=== PATIENT | male | born 1955 | race Two or more races ===

== ENCOUNTER 2022-07-01 13:44 | Emergency (ER) | payer MEDICAID ==
[~2022-07-01] VITALS: Ht 177.8 cm; Wt 94.9 kg
[2022-07-01 14:00] VITALS: BP 134/79
[2022-07-01] MEDS ORDERED: ONDANSETRON ODT 4 MG TAB PO ONE (15:45)
[2022-07-01] MEDS ORDERED: ACETAMINOPHEN 500 MG TAB PO ONE (15:45)
[2022-07-01] MEDS ORDERED: LORA-664 PO (17:34)
[2022-07-01] MEDS ORDERED: BENZ100C19 PO (17:34)
[2022-07-01] MEDS ORDERED: ACET-1158 PO (17:34)
== END 2022-07-01 17:42 | disposition home or self-care (01) ==
LOC: ER 13:44
DX: U07.1 COVID-19 (principal)
CPT/HCPCS: 36415; 71046; 87426; 87804; 99284; Q0162

== ENCOUNTER 2023-09-02 11:57 | Inpatient (IN) | payer MEDICAID ==
[~2023-09-02] VITALS: Ht 177.8 cm; Wt 91.6 kg
[~2023-09-02 11:57] MED LIST: ACET500T58 PO; BENZ100C19 PO; LORA-1130 PO
[2023-09-02 13:27] LABS: Basophils # (auto) 0 10 ^3/uL (0-0.2); Basophils % (auto) 0.9 % (0.0-2.0); Eosinophils # (auto) 0.1 10 ^3/uL (0-0.8); Eosinophils % (auto) 1.5 % (0.0-7.0); Hematocrit 31.8 % (41.0-53.0); Hemoglobin 10.5 g/dL (13.5-17.5); Lymphocytes % (auto) 20.6 % (10.0-50.0); Mean Corpuscular Hemoglobin 31.5 pg (28.0-32.0); Mean Corpuscular Hgb Conc. 33.1 g/dL (32.0-36.0); Mean Corpuscular Volume 95.3 fL (80.0-100.0); Monocytes # (auto) 0.5 10 ^3/uL (0-1.3); Monocytes % (auto) 10.3 % (0.0-12.0); Neutrophils # (auto) 3.1 10 ^3/uL (1.6-8.6); Neutrophils % (auto) 66.7 % (37.0-80.0); Red Blood Cells 3.33 10^6/uL (4.5-5.90); Red Cell Distribution Width 14.1 % (11.8-14.3); White Blood Cell 4.7 10^3/uL (4.4-10.8)
[2023-09-02 13:29] LABS: Chloride 96 mmol/L (98-107); Potassium 5.3 mmol/L (3.5-5.1); Sodium 137 mmol/L (136-145)
[2023-09-02 13:30] LABS: Anion Gap 6 (5-15)
[2023-09-02 13:31] LABS: Calcium 10.8 mg/dL (8.7-10.4)
[2023-09-02 13:35] LABS: Blood Urea Nitrogen 29 mg/dL (9-23); Glucose 101 mg/dL (74-106)
[2023-09-02 14:05] LABS: BUN/Creatinine Ratio 3.1 (10.0-20.0); Carbon Dioxide 35 mmol/L (20-30)
[2023-09-02] MEDS: ALBUTEROL SULF 2.5 MG/0.5ML(0.5%) NEB SOLN NEB ONE (16:34)
[2023-09-02] MEDS ORDERED: SEVE800T20 PO (16:41)
[2023-09-02] MEDS ORDERED: FURO80TA3 PO (16:41)
[2023-09-02] MEDS ORDERED: GABA-1250 PO (16:41)
[2023-09-02] MEDS ORDERED: FERR1TAB17 PO (16:41)
[2023-09-02] MEDS ORDERED: CINA90TA10 PO (16:41)
[2023-09-02] MEDS ORDERED: NIFE1TAB30 PO (16:41)
[2023-09-02] MEDS ORDERED: ALLO100T PO (16:41)
[2023-09-02] MEDS ORDERED: CINA60TA10 PO (16:41)
[2023-09-02] MEDS ORDERED: CLOP75TA70 PO (16:41)
[2023-09-02] MEDS ORDERED: CHOL50007 PO (16:41)
[2023-09-02] MEDS ORDERED: ROPI0.5T4 PO (16:41)
[2023-09-02] MEDS ORDERED: AMLO1TAB22 PO (16:41)
[2023-09-02] MEDS ORDERED: ATOR40TA52 PO (16:41)
[2023-09-02] MEDS ORDERED: B-CO-6 PO (16:41)
[2023-09-02] MEDS ORDERED: DOCUSATE SOD 100 MG CAP PO PRN (16:45)
[2023-09-02] MEDS ORDERED: ONDANSETRON HCL 4 MG/2 ML VIAL IV PRN (16:45)
[2023-09-02] MEDS: cloNIDine HCL 0.1 MG TAB PO ONE (16:45)
[2023-09-02] MEDS ORDERED: MORPHINE SULFATE INJ 2 MG/ml SYRG IV PRN (16:45)
[2023-09-02 17:48] VITALS: PULSE 100; RESP 18; O2SAT 100
[2023-09-02] MEDS: DEXTROSE (50%) 50ML SYRG IV ONE (17:59)
[2023-09-02] MEDS: SODIUM ZIRCONIUM CYCL 10 GM PAK PO ONE (17:59)
[2023-09-02] MEDS: CALCIUM GLUC 1,000mg/50ml-NS 50 ML IV ONE (17:59)
[2023-09-02] MEDS: SEVELAMER 800 MG TAB PO SCH (18:00)
[2023-09-02] MEDS: traMADol HCL 50 MG TAB PO ONE (18:01)
[2023-09-02] MEDS: InsuLIN REG 1unit/0.01ml Soln (100units/ml) IV ONE (18:02)
[2023-09-02] MEDS: FUROSEMIDE 20 MG/2 ML VIAL IV ONE (18:02)
[2023-09-02] MEDS: SODIUM BICARB 8.4% 50Meq/50ml SYR INJ IV ONE (18:03)
[2023-09-02] MEDS: ATORVASTATIN 20 MG TAB PO SCH (21:06)
[2023-09-02] MEDS: SODIUM ZIRCONIUM CYCL 10 GM PAK PO SCH (21:06)
[2023-09-03] VITALS (9 sets, daily range): BP systolic 134–163; BP diastolic 76–102; PULSE 64–85; RESP 16–20; TEMP 97.5–98.4; O2SAT 95–100
[2023-09-03] MEDS: hydrALAZINE HCL 20 MG/ML VL IV PRN (01:19)
[2023-09-03] MEDS: traMADol HCL 50 MG TAB PO PRN (08:41)
[2023-09-03] MEDS: B-COMPLEX W/ C & FOLIC ACID(NEPHROVITE TAB) PO SCH (09:57)
[2023-09-03] MEDS: CLOPIDOGREL BISULFATE 75 MG TAB PO SCH (09:57)
[2023-09-03] MEDS: GABAPENTIN 300 MG CAP PO SCH (09:57)
[2023-09-03] MEDS: CHOLECALCIFEROL (VITD3) 1,000UNIT=25mCg TAB PO SCH (09:59)
[2023-09-03] MEDS: FUROSEMIDE 40 MG TAB PO SCH (10:00)
[2023-09-03] MEDS: ROPINIROLE HYDROCHLORIDE 0.5 MG PO SCH (10:00)
[2023-09-03] MEDS ORDERED: NIFEdipine ER 30 MG TAB PO SCH (10:00)
[2023-09-03] MEDS: CINACALCET HYDROCHLORIDE 30 MG TAB PO SCH (10:00)
[2023-09-03] MEDS ORDERED: amLODIPine BESYLATE 5 MG TAB PO SCH (10:00)
[2023-09-03 10:28] LABS: Basophils # (auto) 0 10 ^3/uL (0-0.2); Basophils % (auto) 0.6 % (0.0-2.0); Eosinophils # (auto) 0.1 10 ^3/uL (0-0.8); Eosinophils % (auto) 1.5 % (0.0-7.0); Hemoglobin 10.7 g/dL (13.5-17.5); Lymphocytes # (auto) 1.2 10 ^3/uL (0.4-5.4); Lymphocytes % (auto) 19.5 % (10.0-50.0); Mean Corpuscular Hgb Conc. 33.5 g/dL (32.0-36.0); Mean Corpuscular Volume 95.4 fL (80.0-100.0); Monocytes # (auto) 0.7 10 ^3/uL (0-1.3); Monocytes % (auto) 10.9 % (0.0-12.0); Neutrophils # (auto) 4.3 10 ^3/uL (1.6-8.6); Neutrophils % (auto) 67.5 % (37.0-80.0); Red Blood Cells 3.35 10^6/uL (4.5-5.90); Red Cell Distribution Width 14.4 % (11.8-14.3); White Blood Cell 6.4 10^3/uL (4.4-10.8)
[2023-09-03 10:50] LABS: Alkaline Phosphatase 82 U/L (46-116); Anion Gap 8 (5-15); Aspartate Aminotransferase 8 U/L (13-40); BUN/Creatinine Ratio 3.2 (10.0-20.0); Blood Urea Nitrogen 33 mg/dL (9-23); Carbon Dioxide 33 mmol/L (20-30); Chloride 95 mmol/L (98-107); Glucose 144 mg/dL (74-106); Potassium 4.9 mmol/L (3.5-5.1); Sodium 136 mmol/L (136-145)
[2023-09-03 10:51] LABS: Bilirubin, Total 0.7 mg/dL (0.2-1.0)
[2023-09-03 11:25] LABS: INR 1.08 (0.9-1.15); Prothrombin Time 11.3 sec (9.3-11.8)
[2023-09-03 11:33] LABS: CRP High Sensitivity 0.16 mg/dL (<1.0)
[2023-09-03 11:35] LABS: % Iron Saturation 38.4 % (20-55)
[2023-09-03 11:53] LABS: Magnesium 2.3 mg/dL (1.6-2.6)
[2023-09-03 11:56] LABS: Alanine Aminotransferase < 9 U/L (7-40)
[2023-09-03 14:14] LABS: COVID19 ANTIGEN SOFIA FIA NEGATIVE (NEGATIVE); Rapid Influenza A Negative (Negative); Rapid Influenza B Negative (Negative)
[2023-09-03] MEDS ORDERED: LOSA50TA46 PO (16:12)
[2023-09-03] MEDS: ASPirin 81 mg TAB PO ONE (18:13)
[2023-09-03] MEDS: ATORVASTATIN 20 MG TAB PO SCH (22:05)
[2023-09-03] MEDS: cloNIDine HCL 0.1 MG TAB PO ONE (22:37)
[2023-09-03] MEDS: ASPirin 81 mg TAB PO SCH (23:05)
[2023-09-04] VITALS (9 sets, daily range): BP systolic 91–152; BP diastolic 54–85; PULSE 67–79; RESP 16–22; TEMP 97.1–98.1; O2SAT 96–100
[2023-09-04 07:05] LABS: Ferritin 1050.7 ng/mL (22-322); Folate (Folic Acid) 7.4 ng/mL (>5.38)
[2023-09-04 07:39] LABS: Basophils # (auto) 0.1 10 ^3/uL (0-0.2); Basophils % (auto) 1.2 % (0.0-2.0); Eosinophils # (auto) 0.1 10 ^3/uL (0-0.8); Eosinophils % (auto) 2.9 % (0.0-7.0); Hemoglobin 10.5 g/dL (13.5-17.5); Lymphocytes # (auto) 1.2 10 ^3/uL (0.4-5.4); Lymphocytes % (auto) 24.6 % (10.0-50.0); Mean Corpuscular Hemoglobin 31.1 pg (28.0-32.0); Mean Corpuscular Hgb Conc. 32.9 g/dL (32.0-36.0); Mean Corpuscular Volume 94.5 fL (80.0-100.0); Monocytes # (auto) 0.5 10 ^3/uL (0-1.3); Monocytes % (auto) 9.5 % (0.0-12.0); Neutrophils # (auto) 3.1 10 ^3/uL (1.6-8.6); Neutrophils % (auto) 61.8 % (37.0-80.0); Nucleated Red Blood Cells % 0.1 %; Red Blood Cells 3.39 10^6/uL (4.5-5.90); Red Cell Distribution Width 14.4 % (11.8-14.3)
[2023-09-04 07:45] LABS: Albumin 4.5 g/dL (3.2-4.8); Alkaline Phosphatase 88 U/L (46-116); Anion Gap 7 (5-15); Aspartate Aminotransferase < 8 U/L (13-40); BUN/Creatinine Ratio 2.4 (10.0-20.0); Blood Urea Nitrogen 18 mg/dL (9-23); Calcium 10.7 mg/dL (8.7-10.4); Carbon Dioxide 33 mmol/L (20-30); Chloride 96 mmol/L (98-107); Glucose 95 mg/dL (74-106); Magnesium 2.2 mg/dL (1.6-2.6); Potassium 4.5 mmol/L (3.5-5.1); Sodium 136 mmol/L (136-145)
[2023-09-04 07:46] LABS: Bilirubin, Total 0.8 mg/dL (0.2-1.0); Total Protein 6.9 g/dL (5.7-8.2)
[2023-09-04 07:51] LABS: Alanine Aminotransferase < 9 U/L (7-40)
[2023-09-04] MEDS: ACETAMINOPHEN 325 MG TAB PO PRN (09:52)
[2023-09-04] MEDS: HEPARIN SODIUM (PORCINE) 5000 UNITS/ML 1ML VIAL SC SCH (10:00)
[2023-09-04] MEDS ORDERED: ASPirin 81 mg TAB PO SCH (10:00)
[2023-09-04] MEDS: NIFEdipine ER 30 MG TAB PO SCH (10:39)
[2023-09-04] MEDS: CARVEDILOL 3.125 MG TAB PO ONE (19:04)
[2023-09-04] MEDS: ATORVASTATIN 20 MG TAB PO SCH (22:09)
[2023-09-04] MEDS: CARVEDILOL 3.125 MG TAB PO SCH (22:10)
[2023-09-05] VITALS (8 sets, daily range): BP systolic 122–158; BP diastolic 65–86; PULSE 65–76; RESP 16–20; TEMP 98–98.6; O2SAT 95–100
[2023-09-05 06:20] LABS: Basophils # (auto) 0 10 ^3/uL (0-0.2); Basophils % (auto) 0.8 % (0.0-2.0); Eosinophils # (auto) 0.1 10 ^3/uL (0-0.8); Eosinophils % (auto) 2.6 % (0.0-7.0); Lymphocytes # (auto) 1.2 10 ^3/uL (0.4-5.4); Lymphocytes % (auto) 26.7 % (10.0-50.0); Mean Corpuscular Hemoglobin 31.3 pg (28.0-32.0); Mean Corpuscular Hgb Conc. 33.3 g/dL (32.0-36.0); Mean Corpuscular Volume 94.3 fL (80.0-100.0); Monocytes # (auto) 0.5 10 ^3/uL (0-1.3); Monocytes % (auto) 10.5 % (0.0-12.0); Neutrophils # (auto) 2.7 10 ^3/uL (1.6-8.6); Neutrophils % (auto) 59.4 % (37.0-80.0); Red Blood Cells 2.86 10^6/uL (4.5-5.90); Red Cell Distribution Width 14.2 % (11.8-14.3); White Blood Cell 4.5 10^3/uL (4.4-10.8)
[2023-09-05 06:36] LABS: Alkaline Phosphatase 73 U/L (46-116); Anion Gap 7 (5-15); BUN/Creatinine Ratio 3.4 (10.0-20.0); Calcium 9.6 mg/dL (8.7-10.4); Carbon Dioxide 32 mmol/L (20-30); Chloride 95 mmol/L (98-107); Potassium 4.7 mmol/L (3.5-5.1); Sodium 134 mmol/L (136-145)
[2023-09-05 06:37] LABS: Albumin 3.8 g/dL (3.2-4.8); Aspartate Aminotransferase < 8 U/L (13-40); Bilirubin, Total 0.7 mg/dL (0.2-1.0); Total Protein 5.8 g/dL (5.7-8.2)
[2023-09-05 06:40] LABS: Alanine Aminotransferase < 9 U/L (7-40); Blood Urea Nitrogen 31 mg/dL (9-23)
[2023-09-05 07:02] LABS: Glucose 87 mg/dL (74-106)
[2023-09-06] VITALS (8 sets, daily range): BP systolic 142–168; BP diastolic 71–96; PULSE 63–84; RESP 18–21; TEMP 97.8–98.6; O2SAT 96–100
[2023-09-06 07:07] LABS: Basophils # (auto) 0 10 ^3/uL (0-0.2); Eosinophils # (auto) 0.1 10 ^3/uL (0-0.8); Eosinophils % (auto) 1.9 % (0.0-7.0); Hematocrit 26.5 % (41.0-53.0); Lymphocytes # (auto) 1.2 10 ^3/uL (0.4-5.4); Lymphocytes % (auto) 26.8 % (10.0-50.0); Mean Corpuscular Hemoglobin 32.4 pg (28.0-32.0); Mean Corpuscular Hgb Conc. 33.8 g/dL (32.0-36.0); Mean Corpuscular Volume 95.7 fL (80.0-100.0); Monocytes # (auto) 0.5 10 ^3/uL (0-1.3); Monocytes % (auto) 10.1 % (0.0-12.0); Neutrophils # (auto) 2.7 10 ^3/uL (1.6-8.6); Neutrophils % (auto) 60.2 % (37.0-80.0); Nucleated Red Blood Cells % 0.3 %; Red Blood Cells 2.77 10^6/uL (4.5-5.90); Red Cell Distribution Width 14.4 % (11.8-14.3); White Blood Cell 4.5 10^3/uL (4.4-10.8)
[2023-09-06 07:34] LABS: Alkaline Phosphatase 76 U/L (46-116); Anion Gap 7 (5-15); BUN/Creatinine Ratio 3.7 (10.0-20.0); Calcium 9.6 mg/dL (8.5-10.1); Carbon Dioxide 32 mmol/L (20-30); Chloride 94 mmol/L (98-107); Glucose 80 mg/dL (74-106); Potassium 5.2 mmol/L (3.5-5.1); Sodium 133 mmol/L (136-145)
[2023-09-06 07:36] LABS: Aspartate Aminotransferase 11 U/L (13-40); Bilirubin, Total 0.7 mg/dL (0.2-1.0); Total Protein 5.7 g/dL (5.7-8.2)
[2023-09-06 07:40] LABS: Blood Urea Nitrogen 41 mg/dL (9-23)
[2023-09-06 07:41] LABS: Alanine Aminotransferase < 9 U/L (7-40)
[2023-09-06] MEDS: SODIUM CHL 0.9% 1000 ML BAG XX ONE ×2 (10:43→10:44)
[2023-09-07] VITALS (17 sets, daily range): BP systolic 126–176; BP diastolic 65–92; PULSE 63–86; RESP 16–20; TEMP 97.7–98.3; O2SAT 90–100
[2023-09-07 05:48] LABS: Chloride 99 mmol/L (98-107); Potassium 4.8 mmol/L (3.5-5.1); Sodium 138 mmol/L (136-145)
[2023-09-07 05:49] LABS: Anion Gap 7 (5-15); Calcium 9.6 mg/dL (8.5-10.1); Carbon Dioxide 32 mmol/L (20-30)
[2023-09-07 05:54] LABS: BUN/Creatinine Ratio 3.5 (10.0-20.0); Glucose 89 mg/dL (74-106)
[2023-09-07 06:23] LABS: Blood Urea Nitrogen 28 mg/dL (9-23)
[2023-09-07 07:09] LABS: Basophils # (auto) 0 10 ^3/uL (0-0.2); Basophils % (auto) 0.7 % (0.0-2.0); Eosinophils # (auto) 0.1 10 ^3/uL (0-0.8); Eosinophils % (auto) 1.7 % (0.0-7.0); Hematocrit 28.3 % (41.0-53.0); Hemoglobin 9.3 g/dL (13.5-17.5); Mean Corpuscular Hemoglobin 31.2 pg (28.0-32.0); Mean Corpuscular Volume 94.5 fL (80.0-100.0); Monocytes # (auto) 0.5 10 ^3/uL (0-1.3); Monocytes % (auto) 9.6 % (0.0-12.0); Neutrophils # (auto) 3.3 10 ^3/uL (1.6-8.6); Red Blood Cells 2.99 10^6/uL (4.5-5.90); Red Cell Distribution Width 14.2 % (11.8-14.3); White Blood Cell 4.8 10^3/uL (4.4-10.8)
[2023-09-07] MEDS: NIFEdipine ER 30 MG TAB PO SCH (09:41)
[2023-09-07] MEDS: FUROSEMIDE 40 MG/4 ML VIAL IV SCH ×2 (13:19→22:25)
[2023-09-07] MEDS: LIDOCAINE VISCOUS 2% 15ML UD PO ONE (16:44)
[2023-09-07] MEDS: fentaNYL CITRATE 100 MCG/2 ML VL IV ONE (16:45)
[2023-09-07] MEDS: MIDAZOLAM HCL 2MG/2ML 2ml VIAL (1mg/ml) IV ONE (16:45)
[2023-09-07] MEDS: CYANOCOBALAMIN (B-12) 1000 MCG/1 ML VIAL IM ONE (19:15)
[2023-09-07] MEDS: guaiFENesin-DM 100/10mg/5ml SYR PO PRN (19:15)
[2023-09-07] MEDS: ROPINIROLE 0.5 MG PO SCH (22:29)
[2023-09-08] VITALS (9 sets, daily range): BP systolic 102–170; BP diastolic 54–88; PULSE 65–92; RESP 14–19; TEMP 97.3–98.6; O2SAT 94–97
[2023-09-08 06:10] LABS: Basophils # (auto) 0 10 ^3/uL (0-0.2); Eosinophils # (auto) 0.1 10 ^3/uL (0-0.8); Eosinophils % (auto) 2.4 % (0.0-7.0); Hematocrit 25.8 % (41.0-53.0); Hemoglobin 8.7 g/dL (13.5-17.5); Lymphocytes # (auto) 0.8 10 ^3/uL (0.4-5.4); Lymphocytes % (auto) 22.8 % (10.0-50.0); Mean Corpuscular Hgb Conc. 33.8 g/dL (32.0-36.0); Mean Corpuscular Volume 94.6 fL (80.0-100.0); Monocytes # (auto) 0.4 10 ^3/uL (0-1.3); Monocytes % (auto) 12.1 % (0.0-12.0); Neutrophils # (auto) 2.1 10 ^3/uL (1.6-8.6); Neutrophils % (auto) 61.7 % (37.0-80.0); Nucleated Red Blood Cells % 0.1 %; Red Blood Cells 2.73 10^6/uL (4.5-5.90); White Blood Cell 3.5 10^3/uL (4.4-10.8)
[2023-09-08 06:13] LABS: Albumin 3.9 g/dL (3.2-4.8); Alkaline Phosphatase 75 U/L (46-116); Anion Gap 7 (5-15); Aspartate Aminotransferase 9 U/L (13-40); BUN/Creatinine Ratio 3.7 (10.0-20.0); Blood Urea Nitrogen 35 mg/dL (9-23); Calcium 9.5 mg/dL (8.7-10.4); Carbon Dioxide 31 mmol/L (20-30); Chloride 99 mmol/L (98-107); Glucose 92 mg/dL (74-106); Magnesium 2.3 mg/dL (1.6-2.6); Potassium 4.8 mmol/L (3.5-5.1); Sodium 137 mmol/L (136-145)
[2023-09-08 06:14] LABS: Bilirubin, Total 0.9 mg/dL (0.2-1.0)
[2023-09-08 06:32] LABS: Alanine Aminotransferase < 9 U/L (7-40)
[2023-09-08] MEDS: SODIUM CHL 0.9% 1000 ML BAG XX ONE (07:00)
[2023-09-08] MEDS ORDERED: NIFE1TAB31 PO (11:16)
[2023-09-08] MEDS ORDERED: ASPI-325 PO (11:16)
[2023-09-08] MEDS ORDERED: CYAN500T3 PO (11:16)
[2023-09-08] MEDS ORDERED: CAR3125T PO (11:16)
[2023-09-08] MEDS: CYANOCOBALAMIN 500 MCG TAB PO SCH (11:29)
[2023-09-08] MEDS: EPOETIN ALFA-EPBX 4,000 UNIT/ML VIAL SC ONE (21:10)
[2023-09-08] MEDS: cloNIDine HCL 0.1 MG TAB PO ONE (22:46)
== END 2023-09-08 23:15 | disposition home or self-care (01) | DRG 45 ==
LOC: ER 11:57 → OVERFLOW 16:38 → EAST 09-03 00:39 → TELE-EAST 09-03 19:21
PROVIDERS: ADMIT Internal Medicine; ATTEND Internal Medicine
PROC: 5A1D70Z Performance of Urinary Filtration, Intermittent, Less than 6 Hours Per Day (ICD-10-PCS; principal; 2023-09-03)
PROC: 5A1D70Z Performance of Urinary Filtration, Intermittent, Less than 6 Hours Per Day (ICD-10-PCS; 2023-09-06)
PROC: B24BZZ4 Ultrasonography of Heart with Aorta, Transesophageal (ICD-10-PCS; 2023-09-07)
PROC: 5A1D70Z Performance of Urinary Filtration, Intermittent, Less than 6 Hours Per Day (ICD-10-PCS; 2023-09-08)
DX: I63.81 Other cerebral infarction due to occlusion or stenosis of small artery (principal); I12.0 Hypertensive chronic kidney disease with stage 5 chronic kidney disease or end stage renal disease; D63.1 Anemia in chronic kidney disease; E83.39 Other disorders of phosphorus metabolism; N18.6 End stage renal disease; I50.42 Chronic combined systolic (congestive) and diastolic (congestive) heart failure; N25.81 Secondary hyperparathyroidism of renal origin; E87.5 Hyperkalemia; M10.9 Gout, unspecified; I16.0 Hypertensive urgency; E78.5 Hyperlipidemia, unspecified; Z20.822 Contact with and (suspected) exposure to COVID-19; D17.0 Benign lipomatous neoplasm of skin and subcutaneous tissue of head, face and neck; I34.0 Nonrheumatic mitral (valve) insufficiency; E83.52 Hypercalcemia; E66.9 Obesity, unspecified; R06.02 Shortness of breath; Z68.29 Body mass index [BMI] 29.0-29.9, adult; Z86.718 Personal history of other venous thrombosis and embolism; Z79.02 Long term (current) use of antithrombotics/antiplatelets; Z79.899 Other long term (current) drug therapy; Z99.2 Dependence on renal dialysis
CPT/HCPCS: 36415; 70450; 70551; 71045; 80048; 80053; 80061; 82306; 82533; 82607; 82728; 82746; 82962; 83036; 83540; 83550; 83735; 83880; 84132; 84443; 84484; 85025; 85610; 86141; 87081; 87340; 87426; 87804; 90935; 93005; 93306; 93312; 93886; 93970; 94644; 97116; 97163; 97530; 99152; 99291; G0378; J1815; J2250

== ENCOUNTER 2024-01-12 17:20 | Emergency (ER) | payer MEDICAID ==
[~2024-01-12] VITALS: Ht 177.8 cm; Wt 85.5 kg
[~2024-01-12 17:20] MED LIST changes: +ALLO100T PO; +ASPI-325 PO; +ATOR40TA52 PO; +B-CO-6 PO; -BENZ100C19 PO; +CARV-214 PO; +CHOL50007 PO; +CINA90TA10 PO; +CLOP75TA70 PO; +CYAN500T3 PO; +FERR1TAB17 PO; +FURO80TA3 PO; +GABA-1250 PO; -LORA-1130 PO; +LOSA-534 PO; +NIFE1TAB31 PO; +ROPI0.5T26 PO; +SEVE800T20 PO
[2024-01-12] MEDS: ACETAMINOPHEN 325 MG TAB PO ONE (17:51)
[2024-01-12 19:43] LABS: Basophils # (auto) 0 10 ^3/uL (0-0.2); Basophils % (auto) 0.5 % (0.0-2.0); Eosinophils # (auto) 0 10 ^3/uL (0-0.8); Eosinophils % (auto) 0.3 % (0.0-7.0); Hemoglobin 12.7 g/dL (13.5-17.5); Lymphocytes # (auto) 0.4 10 ^3/uL (0.4-5.4); Lymphocytes % (auto) 9.9 % (10.0-50.0); Mean Corpuscular Hemoglobin 33.5 pg (28.0-32.0); Mean Corpuscular Hgb Conc. 34.3 g/dL (32.0-36.0); Mean Corpuscular Volume 97.6 fL (80.0-100.0); Monocytes # (auto) 0.7 10 ^3/uL (0-1.3); Monocytes % (auto) 15.6 % (0.0-12.0); Neutrophils # (auto) 3.2 10 ^3/uL (1.6-8.6); Neutrophils % (auto) 73.7 % (37.0-80.0); Red Blood Cells 3.79 10^6/uL (4.5-5.90); White Blood Cell 4.3 10^3/uL (4.4-10.8)
[2024-01-12 19:57] LABS: INR 1.05 (0.9-1.15); Partial Thromboplastin Time 35.6 SEC (24.5-34.5); Prothrombin Time 11.1 sec (9.3-11.8)
[2024-01-12 20:05] LABS: Albumin 4.4 g/dL (3.2-4.8); Alkaline Phosphatase 56 U/L (46-116); Anion Gap 7 (5-15); Aspartate Aminotransferase < 8 U/L (13-40); Blood Urea Nitrogen 33 mg/dL (9-23); Calcium 9.7 mg/dL (8.7-10.4); Carbon Dioxide 32 mmol/L (20-30); Chloride 93 mmol/L (98-107); Glucose 96 mg/dL (74-106); Potassium 4.8 mmol/L (3.5-5.1); Sodium 132 mmol/L (136-145)
[2024-01-12 20:06] LABS: Bilirubin, Total 0.8 mg/dL (0.2-1.0)
[2024-01-12 20:09] LABS: Alanine Aminotransferase < 9 U/L (7-40)
[2024-01-12] MEDS ORDERED: LEVO500T91 PO (23:22)
[2024-01-12 23:41] LABS: COVID19 ANTIGEN SOFIA FIA NEGATIVE (NEGATIVE); Rapid Influenza A Negative (Negative); Rapid Influenza B Negative (Negative)
[2024-01-13 00:03] VITALS: BP 106/65; PULSE 77; RESP 18; TEMP 98.2; O2SAT 97
== END 2024-01-13 00:05 | disposition home or self-care (01) ==
LOC: ER 17:20
DX: J18.9 Pneumonia, unspecified organism (principal); R53.1 Weakness; I12.0 Hypertensive chronic kidney disease with stage 5 chronic kidney disease or end stage renal disease; N18.6 End stage renal disease; Z88.8 Allergy status to other drugs, medicaments and biological substances; Z79.899 Other long term (current) drug therapy; Z20.822 Contact with and (suspected) exposure to COVID-19
CPT/HCPCS: 36415; 71045; 80053; 83880; 84484; 85025; 85610; 85730; 87426; 87804; 93005

== ENCOUNTER 2025-06-05 22:19 | Inpatient (IN) | payer MEDICAID ==
[~2025-06-05] VITALS: Ht 162.6 cm; Wt 77.3 kg
[~2025-06-05 22:19] MED LIST changes: +ASPI-543 PO; +B-CO-5 OR; +CARV12.544 PO; +CEFD300C2 PO; +CHOL20007 OR; +CIPR500T4 PO; +CLIN1CAP70 PO; +DOXY100C79 PO; +HYDR-4902 PO; +HYDR25TA88 PO; +ISOS1TAB28 PO; +LEVO500T91 PO; +ROPI2TAB27 PO; +SEVE800T10 PO
--- NOTE | 2025-06-05 22:30 | ECG ---
[facility] Test Date: 2025-06-05 Test Time: 22:21:21 Pat Name: YULIYA CARDENAS Department: ED Room: [address] [place] [address] Gender: M Physical Therapy Manager: VERONICA : 1955 Requested By: EMERGENCY EMERGENCY Order Number: [id number] Reading MD: Waqar Taveras Measurements Intervals [place] Rate: 88 P: 79 SD: 119 QRS: 53 QRSD: 112 T: 241 QT: 399 QTc: 483 Interpretive Statements Sinus rhythm Borderline short SD interval Borderline intraventricular conduction delay Abnormal R-wave progression, late transition Nonspecific T abnormalities, lateral leads Borderline prolonged QT interval Electronically Signed On 06-08-2025 17:18:33 PST by Waqar Taveras Please click the below link to view image of tracing.
--- NOTE | 2025-06-05 23:12 | ED.PDOC ---
History of Present Illness HPI Comments 69-year-old male who came to ER via EMS for altered level of consciousness. Patient discharged here last May 25, diagnosed with 1. Left knee wound with some pus drainage, wound cultures growing MSSA, 2. Known CAD status post CABG recently 3. Cardiomyopathy with the EF of 25% 4. Acute on chronic congestive heart failure exacerbation with systolic dysfunction 5. End-stage renal disease on hemodialysis 6. Hypertension Patient complaining of chest pains this morning. And he woke up this evening with altered level of consciousness, grunting, clenching his chest, unresponsive to verbal stimuli, saturating 87% on room air, blood sugar of 99, systolic blood pressure of 220. Unsure if patient went to his dialysis session on Thursday. No family members at bedside provide more information Unable to obtain ROS due to altered mental status PHYSICAL EXAM: General: Lethargic, not responding to commands No acute distress. Skin: Skin in warm, dry and intact. Appropriate color for ethnicity. HEENT: The head is normocephalic and atraumatic. Conjunctivae are clear without exudates or hemorrhage. Sclera is non-icteric. Eyelids are normal in appearance without swelling or lesions. Oral mucosa is pink and moist Neck: The neck is supple with normal range of motion. No JVD. Cardiac: Heart rate and rhythm are normal. No murmurs, gallops, or rubs are auscultated. Respiratory: No signs of respiratory distress. Lung sounds are clear in all lobes bilaterally without rales, rhonchi, or wheezes. Abdominal: Abdomen is soft, non-tender without distention, guarding or rigidity. Bowel sounds are present and normoactive in all four quadrants. Extremities: Lower extremities without edema. Neurological: Lethargic, intermittently alert. Noted to have large flailing movements of all 4 extremities. No facial extremity. Patient not making any comprehensible speech. He is making moaning sounds. No facial Asymmetry noted. Unable to follow commands. Chief Complaint: ALOC Time Seen by MD: 23:17 Primary Care Provider: ? Reviewed Notes: [employer] Apprentice Notes Allergies: Coded Allergies: Spironolactone (Verified Allergy, Unknown, 08/12/24) Home Meds Active Scripts Hydrocodone-Acetaminophen (Hydrocodone Bitartrate/AC 5-325 mg) 1 Tab Tab, 1 TAB PO QID PRN, #30 TAB Prov:CAMPABERT PEREZI M MD 05/25/25 Clindamycin Hcl (Clindamycin Hcl) 300 Mg Cap, 1 CAP PO TID, #30 CAP Prov:DEB CAMPA MD 05/25/25 Doxycycline (Monohydrate) (Doxycycline) 100 Mg Cap, 100 MG PO BID, #14 CAP Prov:CLIFFORD ANDERSEN MD 08/17/24 Cefdinir (Cefdinir) 300 Mg Cap, 1 CAP PO BID, #14 CAP Prov:CLIFFORD ANDERSEN MD 08/17/24 Aspirin (Aspir-Low) 81 Mg Tab, 81 MG PO DAILY, #30 TAB Prov:CLIFFORD ANDERSEN MD 08/17/24 Reported Medications B-Complex W/ C & Folic Acid (Jeanine-Krystle Rx) Tab, 1 TAB PO DAILY for 30 Days, #30 08/15/24 Allopurinol (Allopurinol) 100 Mg Tab, 1 TAB PO DAILY for 90 Days, #90 08/14/24 Ropinirole Hydrochloride (Ropinirole Hcl) 1 Mg Tab, 1 PO TID for 90 Days, #270 08/14/24 Carvedilol (Carvedilol) 12.5 Mg Tab, 1 TAB PO BID for 30 Days, #60 08/14/24 Hydralazine HCl (Hydralazine HCl) 25 Mg Tab, 1 PO TID for 30 Days, #90 08/14/24 Isosorbide Mononitrate (Isosorbide Mononitrate Er) 30 Mg Tab, 1 TAB PO DAILY for 30 Days, #30 08/14/24 Gabapentin (Gabapentin) 300 Mg Cap, 2 TAB PO HS for 90 Days, #180 08/14/24 Ferric Citrate (Auryxia) 210 Mg Tab, 2 TAB PO TID for 30 Days, #180 08/14/24 Atorvastatin Calcium (ATORVASTATIN CALCIUM) 40 Mg Tab, 1 TAB PO DAILY for 90 Days, #90 08/14/24 Clopidogrel Bisulfate (Plavix) 75 Mg Tab, 1 TAB PO DAILY for 90 Days, #90 08/13/24 Losartan Potassium (Losartan Potassium) 100 Mg Tab, 1 TAB PO DAILY for 90 Days, #90 08/13/24 Nifedipine (Nifedipine Er) 60 Mg Tab, 1 TAB PO DAILY for 90 Days, #90 08/13/24 Sevelamer Carbonate (Renvela) 800 Mg Tab, 2 TAB PO TIDWM for 30 Days, #450 08/13/24 Information Source: Patient, Emergency Med Personnel Mode of Arrival: EMS Past Medical History PAST MEDICAL HISTORY: Anemia, CAD, CHF, ESRD, High Lipids, HTN, ME Family History Family History: Reviewed,noncontributory to illness Social History Smoker: Non-Smoker Alcohol: Denies ETOH Use Drugs: Denies Drug Use Lives In: Home Was a procedure done? Was a procedure done?: Yes Sedation Sedation?: No Intubation Indication: Altered Mental Status, Airway Protection Prep: Preoxygenation Pretreated with: Sedation (Etomidate 20 mg) Medicated with: Other (Rocuronium 70 mg) Intubation Approach: Orotracheal Intubation size: cm (8) Informed consent obtained: No (Emergent, altered mental status) Notes Direct visualization with GlideScope, 22 cm at the lip. Breath sounds auscultated bilaterally. Confirmed with chest x-ray. EKG EKG : Pulse Rate (adult): 88 Cardiac Rhythm: NSR Differential Dx Considerations may include: Anemia, electrolyte imbalance, end-stage renal disease, hypertensive urgency, altered level of consciousness, chest pain X-Ray, Labs, Meds, VS Vital Signs Date Time Temp Pulse Resp B/P (MAP) Pulse Ox O2 Delivery O2 Flow Rate FiO2 06/06/25 02:45 115 19 162/93 (116) 100 06/06/25 00:41 101 14 187/95 (125) 95 06/05/25 23:19 88 06/05/25 23:19 79 18 98 Nasal Cannula* 4 36 06/05/25 23:12 88 06/05/25 23:00 83 06/05/25 22:41 97.3 86 17 171/88 (115) 91 97.3 06/05/25 22:27 97.7 89 24 209/69 94 97.7 06/05/25 22:21 88 Lab Test 06/06/25 01:17 06/06/25 01:05 06/06/25 00:45 06/06/25 00:10 Range/Units POC Glucose 94 70-106 mg/dl Urine Color Colorless Yellow Urine Clarity Turbid H Clear Urine pH 8.5 5.0-9.0 Urine Specific [place] 1.009 1.001-1.035 Urine Protein 3+ H Negative Urine Ketones Negative Negative Urine Blood 1+ H Negative /uL Urine Nitrite Negative Negative Urine Bilirubin Negative Negative Urine Urobilinogen Normal Negative mg/dL Urine Leukocyte Esterase Negative Negative /uL Urine RBC 50 0 - 3 /hpf Urine Microscopic WBC 26 H 0-3 /HPF Urine Squamous Epithelial Cells None seen <5 /hpf Urine Bacteria None seen None Seen /hpf Urine Mucus Few None Seen Urine Sperm Present None Seen /hpf Urine Glucose 3+ H Normal mg/dL Urine Opiates Screen Neg NEGATIVE Urine Fentanyl Screen Neg NEGATIVE Urine Barbiturates Screen Neg NEGATIVE Urine Phencyclidine Screen Neg NEGATIVE Urine Amphetamines Screen Neg NEGATIVE Urine Benzodiazepines Screen Neg NEGATIVE Urine Cocaine Screen Neg NEGATIVE Urine Cannabinoids Screen Neg NEGATIVE Sodium Level Pending Potassium Level Pending Chloride Level Pending Carbon Dioxide Level Pending Anion Gap Pending Blood Urea Nitrogen Pending Creatinine Pending Glomerular Filtration Rate Calc Pending BUN/Creatinine Ratio Pending Serum Glucose Pending Calcium Level Pending Total Bilirubin 0.7 0.2-1.0 mg/dL Aspartate Amino Transferase (AST) 21 13-40 U/L Alanine Aminotransferase (ALT) 13 7-40 U/L Alkaline Phosphatase 77 46-116 U/L Ammonia < 10 L 11-32 umol/L Troponin I High Sensitivity 46 </=54 ng/L Blood Gas Specimen Type Arterial Blood Gas Sample Site Right radial Blood Gas Patient Temperature 37.0 Arterial Blood Date Drawn [id number] Arterial Blood pH 7.469 H 7.350-7.450 Arterial Blood Partial Pressure CO2 39.8 35.0-48.0 mmHg Arterial Blood Partial Pressure O2 91.3 83.0-108.0 mmHg Arterial Blood HCO3 28.3 H 21.0-28.0 mmol/L Arterial Blood Oxygen Saturation 96.3 94.0-98.0 % Arterial Blood Base Excess 4.3 H -2.0-3.0 mmol/L Arterial Blood Oxyhemoglobin 95.0 94.0-98.0 % Arterial Blood Carboxyhemoglobin 1.2 0.5-1.5 % Arterial Blood Methemoglobin 0.1 0.0-1.5 % Arterial Blood Deoxyhemoglobin 3.7 0.0-5.0 % Cam Test Modified Blood Gas Total Hemoglobin 10.30 L 13.5-17.5 g/dL Blood Gas Liter Flow 4.00 Blood Gas Modality Nasal cannula FiO2 % 36.0 Test 06/05/25 23:39 06/05/25 22:44 06/05/25 22:24 Range/Units Sodium Level 142 136-145 mmol/L Potassium Level 6.0 *H 3.5-5.1 mmol/L Chloride Level 102 98-107 mmol/L Carbon Dioxide Level 28 20-31 mmol/L Anion Gap 12 5-15 Blood Urea Nitrogen 54 H 9-23 mg/dL Creatinine 8.67 H 0.700-1.30 mg/dL Glomerular Filtration Rate Calc 6 >90 mL/min BUN/Creatinine Ratio 6.2 L 10.0-20.0 Serum Glucose 90 74-106 mg/dL Calcium Level 9.0 8.7-10.4 mg/dL Troponin I High Sensitivity 42 44 </=54 ng/L Plasma/Serum Blood Alcohol < 3.0 <10 mg/dL White Blood Count 6.6 4.4-10.8 10^3/uL Red Blood Count 3.40 L 4.5-5.90 10^6/uL Hemoglobin 10.8 L 13.5-17.5 g/dL Hematocrit 32.8 L 41.0-53.0 % Mean Corpuscular Volume 96.3 80.0-100.0 fL Mean Corpuscular Hemoglobin 31.8 28.0-32.0 pg Mean Corpuscular Hemoglobin Concent 33.0 32.0-36.0 g/dL Red Cell Distribution Width 18.5 H 11.8-14.3 % Platelet Count 179 140-450 10^3/uL Mean Platelet Volume 9.3 6.9-10.8 fL Neutrophils (%) (Auto) 76.4 37.0-80.0 % Lymphocytes (%) (Auto) 13.6 10.0-50.0 % Monocytes (%) (Auto) 7.4 0.0-12.0 % Eosinophils (%) (Auto) 2.0 0.0-7.0 % Basophils (%) (Auto) 0.6 0.0-2.0 % Neutrophils # (Auto) 5.0 1.6-8.6 10 ^3/uL Lymphocytes # (Auto) 0.9 0.4-5.4 10 ^3/uL Monocytes # (Auto) 0.5 0-1.3 10 ^3/uL Eosinophils # (Auto) 0.1 0-0.8 10 ^3/uL Basophils # (Auto) 0 0-0.2 10 ^3/uL Nucleated Red Blood Cells 0.1 % Lactic Acid Level 1.3 0.4-2.0 mmol/L Current Medications Medications (Trade) Dose Ordered Sig/Basim Route Start Time Stop Time Status Last Admin Ondansetron HCl (Zofran) 4 mg ONCE ONCE IV 06/06/25 01:00 06/06/25 01:05 DC 06/06/25 01:13 Lorazepam (Ativan Inj) 0.5 mg ONCE ONCE IV 06/06/25 01:00 06/06/25 01:05 DC 06/06/25 01:13 Sodium Chloride 250 ml @ 250 mls/hr Q1H ONCE IV 06/06/25 01:00 06/06/25 01:59 DC 06/06/25 01:31 Insulin Human Regular (InsuLIN R) 10 units ONCE ONCE IV 06/06/25 01:15 06/06/25 01:16 DC 06/06/25 01:14 Dextrose 50 ml ONCE ONCE IV 06/06/25 01:15 06/06/25 01:16 DC 06/06/25 01:18 Albuterol (Ventolin Medneb) 20 mg ONCE ONCE NEB 06/06/25 01:15 06/06/25 01:16 DC 06/06/25 01:38 Sodium Bicarbonate 50 ml ONCE ONCE IV 06/06/25 01:15 06/06/25 01:16 DC 06/06/25 01:14 Calcium Gluconate/ Sodium Chloride 50 ml @ 120 mls/hr ONCE ONCE IV 06/06/25 01:15 06/06/25 01:39 DC 06/06/25 01:14 CHEST RADIOGRAPH INDICATION: CP TECHNIQUE: Single frontal view of the chest was obtained COMPARISON: XY CHEST PORTABLE on DOS: 05/20/25, XY CHEST PORTABLE on DOS: 08/12/24 FINDINGS: Lines and Tubes: None Lungs: Moderate Interval progression in diffuse multifocal bilateral pulmonary airspace disease. Pleura: No effusion. No pneumothorax. Cardiomediastinal contours: Cardiomegaly status post median sternotomy. Bones: Unremarkable IMPRESSION: 1. Interval progression in diffuse multifocal bilateral pulmonary airspace disease. 2. Cardiomegaly. EXAM: CT HEAD WITHOUT CONTRAST INDICATION: AMS TECHNIQUE: CT of the head without intravenous contrast. Radiation Dose : 1. Head: CT Dose: CTDI volume is 64.48 mGy. Dose-length product is 2539.05 mGy*cm The dose indicators for CT are the volume Computed Tomography (CT) Dose Index (CTDIvol) and the Dose Length Product (DLP), and are measured in units of mGy and mGy-cm, respectively. These indicators are not patient dose, but values generated from the CT scanner acquisition factors. The report includes radiation exposure data for exposures received during this examination. COMPARISON: MRI BRAIN HEAD WO CONTRAST on DOS: 08/16/24, CT HEAD WITHOUT CONTRAST on DOS: 08/15/24 FINDINGS: There is no evidence of acute intracranial hemorrhage, extra-axial collection, mass effect, midline shift, herniation or hydrocephalus. 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 Increased prominence of the ventricles, sulci and cisterns consistent with sequelae of atrophic cortical volume loss. The blas-white differentiation is intact. Moderate diffuse confluent periventricular and subcortical white matter hypoattenuation is nonspecific but may be related to small vessel ischemic disease. The visualized paranasal sinuses and mastoid air cells are clear. The surrounding soft tissues and osseous structures are unremarkable. IMPRESSION: 1. No acute intracranial abnormality. 2. 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 3. Chronic sequelae of microangiopathy and atrophic cortical volume loss. Radiation optimization: All CT scans at this facility use at least one of these dose optimization techniques: automated exposure control mA and/or kV adjustment per patient size (includes targeted exams where dose is matched to clinical indication) or iterative reconstruction. Time of 1ST Reevaluation: 23:10 Reevaluation 1ST: Unchanged Patient Education/Counseling: Need For Follow Up Family Education/Counseling: No Family Present SEPSIS Sepsis Screen Date sepsis recognized/suspect: Jun 05, 2025 Time Sepsis recognized/suspect: 2216 Recent Procedure: No On Antibiotic Therapy: No Respiratory Rate >20: No Heart Rate >90: No Temp<36 C (96.8 F) or >38.3 C: No SBP <90 or MAP <65 mmHG: No New Acute Mental Status Change: No Is the patient on CPAP, BIPAP,: No Physician Orders Electrocardigram (06/05/25 23:26) Electrocardigram (06/06/25 01:26) Chest Portable (06/05/25 22:33) Head Without Contrast (06/06/25 00:05) Abg W/ Co-Ox (06/06/25 00:06) Basic Metabolic Panel (06/06/25 02:17) Chest Xray 1 View (06/06/25 02:24) Propofol (Diprivan) (06/06/25 03:00) Rass Sedation Scale Q1HR (06/06/25 02:47) Respiratory Culture W/ Gs (06/06/25 02:53) Abg W/ Co-Ox (06/06/25 03:30) Ventilator Orders (06/06/25 02:53) Vital Signs Date Time Temp Pulse Resp B/P (MAP) Pulse Ox O2 Delivery O2 Flow Rate FiO2 06/06/25 02:45 115 19 162/93 (116) 100 06/06/25 00:41 101 14 187/95 (125) 95 06/05/25 23:19 88 06/05/25 23:19 79 18 98 Nasal Cannula* 4 36 06/05/25 23:12 88 06/05/25 23:00 83 06/05/25 22:41 97.3 86 17 171/88 (115) 91 97.3 06/05/25 22:27 97.7 89 24 209/69 94 97.7 06/05/25 22:21 88 Laboratory Tests Test 06/05/25 22:24 Lactic Acid Level 1.3 mmol/L (0.4-2.0) White Blood Count 6.6 10^3/uL (4.4-10.8) Medications Medications Dose Ordered Sig/Basim Route Start Time Stop Time Status Last Admin Dose Admin Albuterol 20 mg ONCE ONCE NEB 06/06/25 01:15 06/06/25 01:16 DC 06/06/25 01:38 Calcium Gluconate/ Sodium Chloride 50 ml @ 120 mls/hr ONCE ONCE IV 06/06/25 01:15 06/06/25 01:39 DC 06/06/25 01:14 Dextrose 50 ml ONCE ONCE IV 06/06/25 01:15 06/06/25 01:16 DC 06/06/25 01:18 Insulin Human Regular 10 units ONCE ONCE IV 06/06/25 01:15 06/06/25 01:16 DC 06/06/25 01:14 Lorazepam 0.5 mg ONCE ONCE IV 06/06/25 01:00 06/06/25 01:05 DC 06/06/25 01:13 Ondansetron HCl 4 mg ONCE ONCE IV 06/06/25 01:00 06/06/25 01:05 DC 06/06/25 01:13 Sodium Bicarbonate 50 ml ONCE ONCE IV 06/06/25 01:15 06/06/25 01:16 DC 06/06/25 01:14 Sodium Chloride 250 ml @ 250 mls/hr Q1H ONCE IV 06/06/25 01:00 06/06/25 01:59 DC 06/06/25 01:31 Departure 1 Departure Time of Disposition: 02:50 Impression: Primary Impression: Altered mental status Additional Impressions: Metabolic encephalopathy End-stage renal disease on hemodialysis Hyperkalemia Disposition: ADMITTED INPATIENT Condition: Serious Comments 69-year-old male with end-stage renal disease presents in the emergency department via EMS with altered mental status. Patient was initially awake with worsening lethargy, intermittent agitation and worsening mental status. Mild sedation was administered to obtain neuro imaging Afterwards patient's mental status declined he was noted to have snoring, with intermittent apnea. Patient had episode of vomiting. He intubated for airway protection. Patient admitted to hospitalist service for further treatment, evaluation and monitoring. Critical Care Note Critical Care Time?: Yes (35 min-critical care time only) Critical care comment: Altered level of consciousness Stability Stability form required: No Heart Score Heart Score: Heart Score Response (Comments) Value History N/A 0 EKG N/A 0 Age N/A 0 Risk Factors N/A 0 Troponin N/A 0 Total 0 I personally scribed for BARBY GUERRA MD ([email or web address]) on 06/05/25 at 23:12. Electronically submitted by Teodoro Feliz ([employer]). I personally scribed for BARBY GUERRA MD ([email or web address]) on 06/05/25 at 23:18. Electronically submitted by Teodoro Feliz ([email or web address]). I personally scribed for BARBY GUERRA MD ([email or web address]) on 06/06/25 at 01:30. Electronically submitted by Teodoro Feliz ([employer]). BARBY GUERRA MD Jun 05, 2025 23:12
[2025-06-05 23:14] LABS: Hematocrit 32.8 % (41.0-53.0); Hemoglobin 10.8 g/dL (13.5-17.5); Mean Corpuscular Hemoglobin 31.8 pg (28.0-32.0); Mean Corpuscular Volume 96.3 fL (80.0-100.0); Nucleated Red Blood Cells % 0.1 %
[2025-06-05 23:19] VITALS: PULSE 79; RESP 18; O2SAT 98
[2025-06-06] VITALS (75 sets, daily range): BP systolic 86–162; BP diastolic 43–93; PULSE 66–115; RESP 14–27; TEMP 96.5–99.1; O2SAT 93–100
[2025-06-06 00:17] LABS: Anion Gap 12 (5-15)
[2025-06-06 00:19] LABS: Base Excess 4.3 mmol/L (-2.0-3.0)
--- NOTE | 2025-06-06 00:22 | DVH ---
CHEST RADIOGRAPH INDICATION: CP TECHNIQUE: Single frontal view of the chest was obtained COMPARISON: XY CHEST PORTABLE on DOS: 05/20/25, XY CHEST PORTABLE on DOS: 08/12/24 FINDINGS: Lines and Tubes: None Lungs: Moderate Interval progression in diffuse multifocal bilateral pulmonary airspace disease. Pleura: No effusion. No pneumothorax. Cardiomediastinal contours: Cardiomegaly status post median sternotomy. Bones: Unremarkable IMPRESSION: 1. Interval progression in diffuse multifocal bilateral pulmonary airspace disease. 2. Cardiomegaly.
[2025-06-06 00:27] LABS: Calcium 9.0 mg/dL (8.7-10.4); Carbon Dioxide 28 mmol/L (20-31); Chloride 102 mmol/L (98-107); Glucose 90 mg/dL (74-106); Sodium 142 mmol/L (136-145)
[2025-06-06 00:29] LABS: Potassium 6.0 mmol/L (3.5-5.1)
[2025-06-06] MEDS: ONDANSETRON HCL 4 MG/2 ML VIAL IV ONE (01:13)
[2025-06-06] MEDS: LORazepam 2MG/ML-1ML VIAL IV ONE (01:13)
[2025-06-06 01:14] LABS: BUN/Creatinine Ratio 6.2 (10.0-20.0); Blood Urea Nitrogen 54 mg/dL (9-23)
[2025-06-06] MEDS: CALCIUM GLUC 1,000mg/50ml-NS 50 ML IV ONE (01:14)
[2025-06-06] MEDS: InsuLIN REG 1unit/0.01ml Soln (100units/ml) IV ONE (01:14)
[2025-06-06] MEDS: SODIUM BICARB 8.4% 50Meq/50ml SYR INJ IV ONE (01:14)
[2025-06-06] MEDS: DEXTROSE (50%) 50ML SYRG IV ONE (01:18)
[2025-06-06 01:27] LABS: Urine Protein, UAD 3+ (Negative)
[2025-06-06] MEDS: SODIUM ZIRCONIUM CYCL 10 GM PAK PO ONE (01:30)
[2025-06-06] MEDS: SODIUM CHLORIDE 0.9% 250 ML IV ONE (01:31)
[2025-06-06] MEDS: ALBUTEROL SULF 2.5 MG/0.5ML(0.5%) NEB SOLN NEB ONE (01:38)
[2025-06-06 01:40] LABS: Alanine Aminotransferase 13.0 U/L (7-40); Alkaline Phosphatase 77.0 U/L (46-116)
[2025-06-06 01:41] LABS: Bilirubin, Total 0.7 mg/dL (0.2-1.0)
[2025-06-06 01:44] LABS: Amphetamine Screen, Urine Neg (NEGATIVE); Barbiturate Scree,Urine Neg (NEGATIVE); Benzodiazephine Screen, Urine Neg (NEGATIVE); Cannabinoid Screen, Urine Neg (NEGATIVE); Cocaine Screen, Urine Neg (NEGATIVE); Opiate Scree,Urine Neg (NEGATIVE); Phencyclidine Screen, Urine Neg (NEGATIVE)
[2025-06-06] MEDS: ETOMIDATE (2MG/ML) 20ML VIAL IV ONE ×2 (02:43→03:21)
[2025-06-06] MEDS: ROCURONIUM 10MG/ML 10ML VIAL IV ONE ×2 (02:44→03:21)
--- NOTE | 2025-06-06 02:54 | DVH ---
EXAM: CT HEAD WITHOUT CONTRAST INDICATION: AMS TECHNIQUE: CT of the head without intravenous contrast. Radiation Dose : 1. Head: CT Dose: CTDI volume is 64.48 mGy. Dose-length product is 2539.05 mGy*cm The dose indicators for CT are the volume Computed Tomography (CT) Dose Index (CTDIvol) and the Dose Length Product (DLP), and are measured in units of mGy and mGy-cm, respectively. These indicators are not patient dose, but values generated from the CT scanner acquisition factors. The report includes radiation exposure data for exposures received during this examination. COMPARISON: MRI BRAIN HEAD WO CONTRAST on DOS: 08/16/24, CT HEAD WITHOUT CONTRAST on DOS: 08/15/24 FINDINGS: There is no evidence of acute intracranial hemorrhage, extra-axial collection, mass effect, midline shift, herniation or hydrocephalus. 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 Increased prominence of the ventricles, sulci and cisterns consistent with sequelae of atrophic cortical volume loss. The blas-white differentiation is intact. Moderate diffuse confluent periventricular and subcortical white matter hypoattenuation is nonspecific but may be related to small vessel ischemic disease. The visualized paranasal sinuses and mastoid air cells are clear. The surrounding soft tissues and osseous structures are unremarkable. IMPRESSION: 1. No acute intracranial abnormality. 2. 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 3. Chronic sequelae of microangiopathy and atrophic cortical volume loss. Radiation optimization: All CT scans at this facility use at least one of these dose optimization techniques: automated exposure control mA and/or kV adjustment per patient size (includes targeted exams where dose is matched to clinical indication) or iterative reconstruction.
[2025-06-06] MEDS: PROPOFOL 100 ML IV SCH (03:00)
[2025-06-06 03:17] LABS: Chloride 102 mmol/L (98-107); Sodium 142 mmol/L (136-145)
[2025-06-06 03:18] LABS: Anion Gap 17 (5-15); Calcium 9.7 mg/dL (8.7-10.4); Carbon Dioxide 23 mmol/L (20-31)
[2025-06-06] MEDS: PROPOFOL 100 ML IV ONE (03:20)
[2025-06-06 03:23] LABS: BUN/Creatinine Ratio 5.1 (10.0-20.0); Glucose 94 mg/dL (74-106)
--- NOTE | 2025-06-06 03:28 | DVH ---
CHEST RADIOGRAPH INDICATION: ETT, NGT TECHNIQUE: Single frontal view of the chest was obtained COMPARISON: XY CHEST PORTABLE on DOS: 06/05/25, XY CHEST PORTABLE on DOS: 05/20/25, XY CHEST PORTABLE on DOS: 08/12/24 FINDINGS: Lines and Tubes: Endotracheal tube tip projects approximately 9.1 cm above the level of the reanna. Enteric catheter courses below the level of the diaphragm and terminates beyond the inferior margin of the image, presumably within the gastric lumen. Lungs: Moderate multifocal bilateral pulmonary airspace disease and diffuse increased prominence of the pulmonary vasculature. New bilateral pleural effusions, [id number]. No pneumothorax. Cardiomediastinal contours: Cardiomegaly status post median sternotomy. Bones: Unremarkable IMPRESSION: 1. Endotracheal tube tip projects approximately 9.1 cm above the level of the reanna. 2. Enteric catheter courses below the level of the diaphragm and terminates beyond the inferior margin of the image, presumably within the gastric lumen. 3. Worsening bilateral pulmonary airspace disease and new bilateral pleural effusions, [id number]. 4. Cardiomegaly.
[2025-06-06 03:50] LABS: Base Excess 7.1 mmol/L (-2.0-3.0)
[2025-06-06 03:53] LABS: Blood Urea Nitrogen 48 mg/dL (9-23); Potassium 5.5 mmol/L (3.5-5.1)
--- NOTE | 2025-06-06 04:50 | DVH ---
CHEST RADIOGRAPH INDICATION: ETT READJUSTMENT TECHNIQUE: Single frontal view of the chest was obtained COMPARISON: XY CHEST XRAY 1 VIEW on DOS: 06/06/25, XY CHEST PORTABLE on DOS: 06/05/25, XY CHEST PORTABLE on DOS: 05/20/25, XY CHEST PORTABLE on DOS: 08/12/24 FINDINGS: Lines and Tubes: Interval advancement of endotracheal tube such that the tip now projects 5.3 cm above the level of the reanna. Enteric catheter unchanged. Lungs: Stable appearing bibasilar pulmonary airspace disease and bilateral pleural effusions. No pneumothorax. Cardiomediastinal contours: Cardiomegaly. Bones: Unremarkable IMPRESSION: 1. Interval advancement of endotracheal tube. Enteric catheter unchanged. 2. Bibasilar pulmonary airspace disease and bilateral pleural effusions. 3. Cardiomegaly.
[2025-06-06] MEDS ORDERED: hydrALAZINE HCL 20 MG/ML VL IV PRN (05:00)
[2025-06-06] MEDS ORDERED: MORPHINE SULFATE INJ 2 MG/ml SYRG IV PRN (05:00)
[2025-06-06] MEDS ORDERED: VANCOMYCIN PER PHARMACY 0 MG IV SCH (05:00)
[2025-06-06] MEDS ORDERED: NITROGLYCERIN 0.4 MG SL TAB SL PRN (05:00)
--- NOTE | 2025-06-06 05:02 | DVHHP2 ---
History of Present Illness Reason for Visit: Altered mental status History of Present Illness 69-year-old male presents for evaluation of altered mental status. Patient is currently sedated and intubated. Per ED records and personnel patient woke up yesterday complaining of chest pain. Subsequently he went back to sleep and did not wake up till the afternoon around 8:00 p.m.. He woke up altered and was brought in for evaluation. Patient in the emergency department became obtunded and hypoxic. Patient was emergently intubated for airway protection. Past Medical History CHF, end-stage renal disease, dyslipidemia, hypertension, mi, CAD Past Surgical History Dialysis access Family History Unknown Smoke: No ALCOHOL: none Drugs: None Lives: with Family Review of Systems Review of Systems Unable to complete review of systems patient is sedated and intubated. Allergies: Coded Allergies: Spironolactone (Verified Allergy, Unknown, 08/12/24) Medications Current Medications Medications Dose Ordered Sig/Basim Route Start Time Stop Time Status Last Admin Dose Admin Propofol 100 ml @ 2.199 mls/ hr Q24H IV 06/06/25 03:00 06/06/25 03:00 2.199 MLS/HR Cefepime HCl 50 ml @ 12.5 mls/hr DAILY IV 06/06/25 10:00 Vancomycin HCl 0 ml @ 0 mls/hr PER PHARMACY IV 06/06/25 05:00 UNV Albuterol 2.5 mg Q6HR NEB 06/06/25 06:00 Acetaminophen 650 mg Q6HP PRN PO 06/06/25 05:00 Nitroglycerin 0.4 mg Q5MINP PRN SL 06/06/25 05:00 Morphine Sulfate 2 mg Q30M PRN IV 06/06/25 05:00 Exam Vital Signs Vital Signs Date Time Temp Pulse Resp B/P (MAP) Pulse Ox O2 Delivery O2 Flow Rate FiO2 06/06/25 04:30 88 16 147/90 (109) 100 06/06/25 04:24 60 06/06/25 03:30 98.0 98.0 06/05/25 23:19 Nasal Cannula* 4 Exam Gen: 69-year-old male in mild distress Skin: Warm, dry, normal color and texture, no rash. HEENT: Normocephalic atraumatic, mucous membranes moist and pink. Neck: Cervical and supraclavicular nodes normal without enlargement, trachea is midline, thyroid gland is normal without masses. Pulmonary: Intubated, diminished breath sounds bilaterally Cardiac: Regular rate and rhythm. No murmur Abdomen: Soft, nontender, nondistended, bowel sounds present all 4 quadrants, no guarding, no rigidity, no organomegaly. Extremities: No cyanosis, clubbing, no edema Neuro: Sedated Labs/Xrays ORDERING PHYSICIAN: ADRIANA GAMA DNP PROCEDURE(s): ECIDC - ECHO 2D MODE CARDIAC DOP REASON: History of CHF ORDER NUMBER(s): [id number], ACCESSION NUMBER(s): [id number] APPROVED REPORT EXAM: Two-dimensional and M-mode echocardiogram with Doppler and color Doppler. Blood Pressure: 157/87 mmHg INDICATION History of CHF RISK FACTORS Height: 69, Weight: 184 DIMENSIONS LVDd 6.0 (3.8-5.7cm) LA (2D) 4.9 (1.9-4.0cm) Aortic Root 3.9 (2.0- 3.7cm) LVDs 5.3 (2.5-4.0cm) LA (MM) (1.9-4.0cm) Aortic Cusp Exc 1.7 (1.5- 2.0cm) EF (%) 25.0 (55-70%) Rt. Atrium 5.0 (1.9-4.0cm) Asc. Aorta cm Mitral Valve Mitral Mitral Stenosis E wave 1.01m/s MV Mean GR. mmHg A wave 0.46m/s MV Peak GR. mmHg E/A ratio 2.2 2D MVA cm2 DECEL Time 162ms PRESS 1/2 Time ms Aortic Valve Aortic Valve Aortic Stenosis V1 0.64m/s AO Mean GR. 3mmHg V2 1.11m/s AO Peak GR. 5mmHg LVOT Diameter 2.3 (1.8-2.4cm) Doppler HEATHER 2.39cm2 AI P 1/2 Time 319.33ms Pulmonic Valve V2 0.86m/s Tricuspid Valve TR Velocity 2.60m/s RVSP 38mmHg Other Information Technically limited study due to patient had an abdominal binder on and laying flat on his back during exam. Conclusion lvef 25% restrictive LV filling pattern severe chf mild LVH aortic sclerosis RV enlarged and dysfunction biatrial enlargement mild mitral regurg SIGNED BY: YUDY SINGER MD SIGNED DATE/TIME: 05/21/25 1200 CC: ORDERING PHYSICIAN: BARBY GUERRA MD PROCEDURE(s): CXR1 - CHEST XRAY 1 VIEW REASON: ETT, NGT ORDER NUMBER(s): [id number], ACCESSION NUMBER(s): [id number] CHEST RADIOGRAPH INDICATION: ETT, NGT TECHNIQUE: Single frontal view of the chest was obtained COMPARISON: XY CHEST PORTABLE on DOS: 06/05/25, XY CHEST PORTABLE on DOS: 05/20/25, XY CHEST PORTABLE on DOS: 08/12/24 FINDINGS: Lines and Tubes: Endotracheal tube tip projects approximately 9.1 cm above the level of the reanna. Enteric catheter courses below the level of the diaphragm and terminates beyond the inferior margin of the image, presumably within the gastric lumen. Lungs: Moderate multifocal bilateral pulmonary airspace disease and diffuse increased prominence of the pulmonary vasculature. New bilateral pleural effusions, [id number]-[id number]-left. No pneumothorax. Cardiomediastinal contours: Cardiomegaly status post median sternotomy. Bones: Unremarkable IMPRESSION: 1. Endotracheal tube tip projects approximately 9.1 cm above the level of the reanna. 2. Enteric catheter courses below the level of the diaphragm and terminates beyond the inferior margin of the image, presumably within the gastric lumen. 3. Worsening bilateral pulmonary airspace disease and new bilateral pleural effusions, [id number]-[id number]-left. 4. Cardiomegaly. RING PHYSICIAN: BARBY GUERRA MD PROCEDURE(s): HWOCT - HEAD WITHOUT CONTRAST REASON: AMS ORDER NUMBER(s): [id number], ACCESSION NUMBER(s): [id number] EXAM: CT HEAD WITHOUT CONTRAST INDICATION: AMS TECHNIQUE: CT of the head without intravenous contrast. Radiation Dose : 1. Head: CT Dose: CTDI volume is 64.48 mGy. Dose-length product is 2539.05 mGy*cm The dose indicators for CT are the volume Computed Tomography (CT) Dose Index (CTDIvol) and the Dose Length Product (DLP), and are measured in units of mGy and mGy-cm, respectively. These indicators are not patient dose, but values generated from the CT scanner acquisition factors. The report includes radiation exposure data for exposures received during this examination. COMPARISON: MRI BRAIN HEAD WO CONTRAST on DOS: 08/16/24, CT HEAD WITHOUT CONTRAST on DOS: 08/15/24 FINDINGS: There is no evidence of acute intracranial hemorrhage, extra-axial collection, mass effect, midline shift, herniation or hydrocephalus. 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 Increased prominence of the ventricles, sulci and cisterns consistent with sequelae of atrophic cortical volume loss. The blas-white differentiation is intact. Moderate diffuse confluent periventricular and subcortical white matter hypoattenuation is nonspecific but may be related to small vessel ischemic disease. The visualized paranasal sinuses and mastoid air cells are clear. The surrounding soft tissues and osseous structures are unremarkable. IMPRESSION: 1. No acute intracranial abnormality. 2. 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 3. Chronic sequelae of microangiopathy and atrophic cortical volume loss. Radiation optimization: All CT scans at this facility use at least one of these dose optimization techniques: automated exposure control mA and/or kV adjustment per patient size (includes targeted exams where dose is matched to clinical indication) or iterative reconstruction. Labs Test 06/06/25 03:40 06/06/25 01:17 06/06/25 01:05 06/06/25 00:45 Range/Units Blood Gas Specimen Type Arterial Blood Gas Sample Site Right radial Blood Gas Patient Temperature 37.0 Arterial Blood Date Drawn [id number] Arterial Blood pH 7.416 7.350-7.450 Arterial Blood Partial Pressure CO2 51.9 H 35.0-48.0 mmHg Arterial Blood Partial Pressure O2 194.8 H 83.0-108.0 mmHg Arterial Blood HCO3 32.6 H 21.0-28.0 mmol/L Arterial Blood Oxygen Saturation 98.6 H 94.0-98.0 % Arterial Blood Base Excess 7.1 H -2.0-3.0 mmol/L Arterial Blood Oxyhemoglobin 97.7 94.0-98.0 % Arterial Blood Carboxyhemoglobin 0.5 0.5-1.5 % Arterial Blood Methemoglobin 0.4 0.0-1.5 % Arterial Blood Deoxyhemoglobin 1.4 0.0-5.0 % Cam Test Yes Blood Gas Total Hemoglobin 9.50 L 13.5-17.5 g/dL Blood Gas Set Respiration Rate 16.0 Blood Gas Modality Vent - ac Blood Gas Spontaneous Rate 19 FiO2 % 100.0 Blood Gas Tidal Volume 500.0 Blood Gas Spontaneous Tidal Volume 519 Blood Gas PEEP or CPAP 5.0 Blood Gas Critical Value Read Back Yes Blood Gas Notified Time [id number] POC Glucose 94 70-106 mg/dl Urine Color Colorless Yellow Urine Clarity Turbid H Clear Urine pH 8.5 5.0-9.0 Urine Specific [place] 1.009 1.001-1.035 Urine Protein 3+ H Negative Urine Ketones Negative Negative Urine Blood 1+ H Negative /uL Urine Nitrite Negative Negative Urine Bilirubin Negative Negative Urine Urobilinogen Normal Negative mg/dL Urine Leukocyte Esterase Negative Negative /uL Urine RBC 50 0 - 3 /hpf Urine Microscopic WBC 26 H 0-3 /HPF Urine Squamous Epithelial Cells None seen <5 /hpf Urine Bacteria None seen None Seen /hpf Urine Mucus Few None Seen Urine Sperm Present None Seen /hpf Urine Glucose 3+ H Normal mg/dL Urine Opiates Screen Neg NEGATIVE Urine Fentanyl Screen Neg NEGATIVE Urine Barbiturates Screen Neg NEGATIVE Urine Phencyclidine Screen Neg NEGATIVE Urine Amphetamines Screen Neg NEGATIVE Urine Benzodiazepines Screen Neg NEGATIVE Urine Cocaine Screen Neg NEGATIVE Urine Cannabinoids Screen Neg NEGATIVE Sodium Level 142 136-145 mmol/L Potassium Level 5.5 H 3.5-5.1 mmol/L Chloride Level 102 98-107 mmol/L Carbon Dioxide Level 23 20-31 mmol/L Anion Gap 17 H 5-15 Blood Urea Nitrogen 48 H 9-23 mg/dL Creatinine 9.35 H 0.700-1.30 mg/dL Glomerular Filtration Rate Calc 6 >90 mL/min BUN/Creatinine Ratio 5.1 L 10.0-20.0 Serum Glucose 94 74-106 mg/dL Calcium Level 9.7 8.7-10.4 mg/dL Total Bilirubin 0.7 0.2-1.0 mg/dL Aspartate Amino Transferase (AST) 21 13-40 U/L Alanine Aminotransferase (ALT) 13 7-40 U/L Alkaline Phosphatase 77 46-116 U/L Ammonia < 10 L 11-32 umol/L Troponin I High Sensitivity 46 </=54 ng/L Test 06/06/25 00:10 06/05/25 22:44 06/05/25 22:24 Range/Units Blood Gas Liter Flow 4.00 Plasma/Serum Blood Alcohol < 3.0 <10 mg/dL White Blood Count 6.6 4.4-10.8 10^3/uL Red Blood Count 3.40 L 4.5-5.90 10^6/uL Hemoglobin 10.8 L 13.5-17.5 g/dL Hematocrit 32.8 L 41.0-53.0 % Mean Corpuscular Volume 96.3 80.0-100.0 fL Mean Corpuscular Hemoglobin 31.8 28.0-32.0 pg Mean Corpuscular Hemoglobin Concent 33.0 32.0-36.0 g/dL Red Cell Distribution Width 18.5 H 11.8-14.3 % Platelet Count 179 140-450 10^3/uL Mean Platelet Volume 9.3 6.9-10.8 fL Neutrophils (%) (Auto) 76.4 37.0-80.0 % Lymphocytes (%) (Auto) 13.6 10.0-50.0 % Monocytes (%) (Auto) 7.4 0.0-12.0 % Eosinophils (%) (Auto) 2.0 0.0-7.0 % Basophils (%) (Auto) 0.6 0.0-2.0 % Neutrophils # (Auto) 5.0 1.6-8.6 10 ^3/uL Lymphocytes # (Auto) 0.9 0.4-5.4 10 ^3/uL Monocytes # (Auto) 0.5 0-1.3 10 ^3/uL Eosinophils # (Auto) 0.1 0-0.8 10 ^3/uL Basophils # (Auto) 0 0-0.2 10 ^3/uL Nucleated Red Blood Cells 0.1 % Lactic Acid Level 1.3 0.4-2.0 mmol/L SEPSIS Sepsis Screen Date sepsis recognized/suspect: Jun 05, 2025 Time Sepsis recognized/suspect: 2216 Recent Procedure: No On Antibiotic Therapy: No Respiratory Rate >20: No Heart Rate >90: No Temp<36 C (96.8 F) or >38.3 C: No SBP <90 or MAP <65 mmHG: No New Acute Mental Status Change: No Is the patient on CPAP, BIPAP,: No Physician Orders Electrocardigram (06/05/25 23:26) Electrocardigram (06/06/25 01:26) Chest Portable (06/05/25 22:33) Head Without Contrast (06/06/25 00:05) Abg W/ Co-Ox (06/06/25 00:06) Chest Xray 1 View (06/06/25 02:24) Propofol (Diprivan) (06/06/25 03:00) Rass Sedation Scale Q1HR (06/06/25 02:47) Respiratory Culture W/ Gs (06/06/25 02:53) Abg W/ Co-Ox (06/06/25 03:30) Ventilator Orders (06/06/25 02:53) Chest Portable (06/06/25 04:11) Respiratory Misc. Order (06/06/25 04:19) B-Type Natriuretic Peptide (06/06/25 04:27) *Dr. Katie Duarte -Da Evelyn (06/06/25 04:46) Cefepime 1gm/50ml (Maxipime 1gm/50ml) (06/06/25 10:00) Vancomycin Per Pharmacy (06/06/25 05:00) Albuterol Medneb (Ventolin Medneb) (06/06/25 06:00) Basic Metabolic Panel (06/07/25 04:00) D-Dimer (06/06/25 04:46) *Consult (06/06/25 04:46) Admit (06/06/25 04:46) Complete Blood Count (06/07/25 04:00) Condition: Critical (06/06/25 04:46) Acetaminophen Tablet (Tylenol Tablet) (06/06/25 05:00) Maintain Bed Rest (06/06/25 04:46) Sequential Compression Device (06/06/25 ) Nitroglycerin Sublingual (Ntrostat Subli (06/06/25 05:00) Morphine Sulfate Injection (06/06/25 05:00) Stat Ekg For Chest Pain (06/06/25 04:46) Notify Md Of Changes From Base (06/06/25 04:46) Foreign Car Mechanic For 24 Hours (06/06/25 04:46) Emergency Dysrhythmia Protocol (06/06/25 04:46) Rhythm Strips Once Every Shift (06/06/25 04:46) Oxygen By Nasal Cannula (06/06/25 04:46) Vital Signs Date Time Temp Pulse Resp B/P (MAP) Pulse Ox O2 Delivery O2 Flow Rate FiO2 06/06/25 04:30 88 16 147/90 (109) 100 06/06/25 04:24 95 16 140/73 (95) 100 60 06/06/25 04:15 92 16 166/86 (112) 100 06/06/25 04:00 97 16 142/82 (102) 100 06/06/25 04:00 142/82 06/06/25 03:52 115 19 162/93 100 100 06/06/25 03:45 100 16 149/77 (101) 100 06/06/25 03:30 98.0 102 16 161/83 (109) 100 98.0 06/06/25 03:15 106 16 167/91 (116) 100 06/06/25 03:00 181/99 06/06/25 03:00 97.3 114 16 181/99 (126) 100 97.3 06/06/25 02:45 115 19 162/93 (116) 100 06/06/25 02:44 184/104 06/06/25 02:41 101 14 175/84 (114) 100 06/06/25 00:41 101 14 187/95 (125) 95 06/05/25 23:19 88 06/05/25 23:19 79 18 98 Nasal Cannula* 4 36 06/05/25 23:12 88 06/05/25 23:00 83 06/05/25 22:41 97.3 86 17 171/88 (115) 91 97.3 06/05/25 22:27 97.7 89 24 209/69 94 97.7 06/05/25 22:21 88 Laboratory Tests Test 06/05/25 22:24 Lactic Acid Level 1.3 mmol/L (0.4-2.0) White Blood Count 6.6 10^3/uL (4.4-10.8) Medications Medications Dose Ordered Sig/Basim Route Start Time Stop Time Status Last Admin Dose Admin Albuterol 20 mg ONCE ONCE NEB 06/06/25 01:15 06/06/25 01:16 DC 06/06/25 01:38 20 MG Calcium Gluconate/ Sodium Chloride 50 ml @ 120 mls/hr ONCE ONCE IV 06/06/25 01:15 06/06/25 01:39 DC 06/06/25 01:14 120 MLS/HR Ceftriaxone Sodium 50 ml @ 100 mls/hr ONCE ONCE IV 06/06/25 02:30 06/06/25 02:59 WI 06/06/25 03:27 100 MLS/HR Dextrose 50 ml ONCE ONCE IV 06/06/25 01:15 06/06/25 01:16 WI 06/06/25 01:18 50 ML Etomidate 20 mg ONCE ONCE IV 06/06/25 04:00 06/06/25 04:01 WI 06/06/25 02:43 20 MG Insulin Human Regular 10 units ONCE ONCE IV 06/06/25 01:15 06/06/25 01:16 WI 06/06/25 01:14 10 UNITS Lorazepam 0.5 mg ONCE ONCE IV 06/06/25 01:00 06/06/25 01:05 WI 06/06/25 01:13 0.5 MG Ondansetron HCl 4 mg ONCE ONCE IV 06/06/25 01:00 06/06/25 01:05 WI 06/06/25 01:13 4 MG Propofol 100 ml @ 2.199 mls/ hr Q24H IV 06/06/25 03:00 06/06/25 03:00 2.199 MLS/HR Rocuronium [place] 100 mg ONCE ONCE IV 06/06/25 04:00 06/06/25 04:01 WI 06/06/25 02:44 100 MG Sodium Bicarbonate 50 ml ONCE ONCE IV 06/06/25 01:15 06/06/25 01:16 WI 06/06/25 01:14 50 ML Sodium Chloride 250 ml @ 250 mls/hr Q1H ONCE IV 06/06/25 01:00 06/06/25 01:59 WI 06/06/25 01:31 250 MLS/HR Assessment/Plan Assessment/Plan Assessment Acute hypoxic respiratory failure, intubated Metabolic encephalopathy Multifocal pneumonia,? Aspiration Hypertension End-stage renal disease, dialysis dependent Plan Admit the patient to ICU to the hospitalist Nephrology consultation Pulmonary consult Cefepime/vancomycin Continue treatment per orders. Total critical care time excluding procedures performed this 55 minutes Plan discussed with: Other My Orders Orders - RODNEY LOVE Procedure Category Date Status Time B-Type Natriuretic LAB 06/06/25 Logged Peptide 04:27 *Dr. Katie Renae CONS 06/06/25 Transmitted Evelyn 04:46 Cefepime 1gm/50ml PHA 06/06/25 In Process (Maxipime 1gm/50ml) 10:00 Vancomycin Per PHA 06/06/25 Logged Pharmacy 05:00 Albuterol Medneb PHA 06/06/25 In Process (Ventolin Medneb) 06:00 Basic Metabolic Panel LAB 06/07/25 Verified 04:00 D-Dimer LAB 06/06/25 Logged 04:46 *Consult CONS 06/06/25 Transmitted 04:46 Admit ADMIT 06/06/25 Transmitted 04:46 Complete Blood Count LAB 06/07/25 Verified 04:00 Condition: Critical [facility] 06/06/25 In Process 04:46 Acetaminophen Tablet PHA 06/06/25 In Process (Tylenol Tablet) 05:00 Maintain Bed Rest [facility] 06/06/25 In Process 04:46 Sequential FELIPE 06/06/25 In Process Compression Device Nitroglycerin [facility] 06/06/25 In Process Sublingual (Ntrostat 05:00 Morphine Sulfate PHA 06/06/25 In Process Injection 05:00 Stat Ekg For Chest [facility] 06/06/25 In Process Pain 04:46 Notify Of Changes [facility] 06/06/25 In Process From Base 04:46 Foreign Car Mechanic For [facility] 06/06/25 In Process 24 Hours 04:46 Emergency Dysrhythmia [facility] 06/06/25 In Process Protocol 04:46 Rhythm Strips Once [facility] 06/06/25 In Process Every Shift 04:46 Oxygen By Nasal RT 06/06/25 Transmitted Cannula 04:46 Date of Service: Jun 06, 2025 Billing Provider: RODNEY LOVE Common Visit Codes: [id number] CARE 30-74 MIN RODNEY LOVE Jun 06, 2025 05:02
[2025-06-06] MEDS: VANCOMYCIN 1GM/200ML PM 200 ML IV ONE (05:31)
[2025-06-06] MEDS: VANCOMYCIN 1GM/250ML KIT 250 ML IV ONE (05:34)
[2025-06-06] MEDS: MIDAZOLAM DRIP 100 mg/100mL NS 100 ML IV SCH (06:15)
[2025-06-06] MEDS: fentaNYL Drip 2500mCg/250mlNS 250 ML IV SCH (06:15)
[2025-06-06] MEDS: ALBUTEROL SULF 2.5 MG/0.5ML(0.5%) NEB SOLN NEB SCH (06:16)
[2025-06-06] MEDS: NOREPINEPHRINE 8 MG/250ML KIT 250 ML IV SCH (10:21)
[2025-06-06] MEDS: CEFEPIME 1GM/50ML 50 ML IV SCH (10:22)
--- NOTE | 2025-06-06 10:24 | DVH ---
INDICATION: ET TUBE PLACEMENT TECHNIQUE: Frontal view of the chest. COMPARISON: XY CHEST PORTABLE on DOS: 06/06/25, XY CHEST XRAY 1 VIEW on DOS: 06/06/25, XY CHEST PORTABLE on DOS: 06/05/25, XY CHEST PORTABLE on DOS: 05/20/25, XY CHEST PORTABLE on DOS: 08/12/24 FINDINGS: Lines and tubes are unchanged. Bilateral pulmonary airspace disease unchanged. Right effusion unchanged. IMPRESSION: 1. No interval change.
[2025-06-06] MEDS: SODIUM CHL 0.9% 1000 ML BAG XX ONE (12:00)
--- NOTE | 2025-06-06 12:49 | ECG ---
[facility] Test Date: 2025-06-05 Test Time: 23:19:37 Pat Name: YULIYA CARDENAS Department: ED Room: [address] [place] [address] A Gender: M District Leader: VERONICA : 1955 Requested By: EMERGENCY EMERGENCY Order Number: [id number] Reading MD: Waqar Taveras Measurements Intervals [place] Rate: 88 P: 40 NC: 61 QRS: 102 QRSD: 113 T: -42 QT: 386 QTc: 467 Interpretive Statements Sinus rhythm Short NC interval Borderline intraventricular conduction delay Borderline T abnormalities, inferior leads Electronically Signed On 06-08-2025 17:18:41 PST by Waqar Taveras Please click the below link to view image of tracing.
--- NOTE | 2025-06-06 16:50 | DVHINCON2 ---
Date of service: Jun 06, 2025 Referring Physician Vianney Stokes Reason for Consultation Dialysis History of Present Illness 69 y/o M with history of ESRD on HD via left arm AVF, HTN, CAD s/p CABG, systolic CHF (EF: 25%) presented with chief complaint of chest pain, with vomiting. systolic BP in 220s mmHg, and hypoxic with SO2 on 87%. initial K: 6.0 mmol/l. CXR shows multifocal airspace disease. Patient was intubated and placed on mechanical ventilator. Nephrology consulted for dialysis Past Medical History ESRD, HTN, CAD, CHF , Anemia Past Surgical History AVF creation CABG Allergies: Coded Allergies: Spironolactone (Verified Allergy, Unknown, 08/12/24) Home Meds Active Scripts Hydrocodone-Acetaminophen (Hydrocodone Bitartrate/AC 5-325 mg) 1 Tab Tab, 1 TAB PO QID PRN, #30 TAB Prov:DEB CAMPA MD 05/25/25 Clindamycin Hcl (Clindamycin Hcl) 300 Mg Cap, 1 CAP PO TID, #30 CAP Prov:DEB CAMPA MD 05/25/25 Doxycycline (Monohydrate) (Doxycycline) 100 Mg Cap, 100 MG PO BID, #14 CAP Prov:CLIFFORD ANDERSEN MD 08/17/24 Cefdinir (Cefdinir) 300 Mg Cap, 1 CAP PO BID, #14 CAP Prov:CLIFFORD ANDERSEN MD 08/17/24 Aspirin (Aspir-Low) 81 Mg Tab, 81 MG PO DAILY, #30 TAB Prov:CLIFFORD ANDERSEN MD 08/17/24 Reported Medications B-Complex W/ C & Folic Acid (Jeanine-Krystle Rx) Tab, 1 TAB PO DAILY for 30 Days, #30 08/15/24 Allopurinol (Allopurinol) 100 Mg Tab, 1 TAB PO DAILY for 90 Days, #90 08/14/24 Ropinirole Hydrochloride (Ropinirole Hcl) 1 Mg Tab, 1 PO TID for 90 Days, #270 08/14/24 Carvedilol (Carvedilol) 12.5 Mg Tab, 1 TAB PO BID for 30 Days, #60 08/14/24 Hydralazine HCl (Hydralazine HCl) 25 Mg Tab, 1 PO TID for 30 Days, #90 08/14/24 Isosorbide Mononitrate (Isosorbide Mononitrate Er) 30 Mg Tab, 1 TAB PO DAILY for 30 Days, #30 08/14/24 Gabapentin (Gabapentin) 300 Mg Cap, 2 TAB PO HS for 90 Days, #180 08/14/24 Ferric Citrate (Auryxia) 210 Mg Tab, 2 TAB PO TID for 30 Days, #180 08/14/24 Atorvastatin Calcium (ATORVASTATIN CALCIUM) 40 Mg Tab, 1 TAB PO DAILY for 90 Days, #90 08/14/24 Clopidogrel Bisulfate (Plavix) 75 Mg Tab, 1 TAB PO DAILY for 90 Days, #90 08/13/24 Losartan Potassium (Losartan Potassium) 100 Mg Tab, 1 TAB PO DAILY for 90 Days, #90 08/13/24 Nifedipine (Nifedipine Er) 60 Mg Tab, 1 TAB PO DAILY for 90 Days, #90 08/13/24 Sevelamer Carbonate (Renvela) 800 Mg Tab, 2 TAB PO TIDWM for 30 Days, #450 08/13/24 Current Medications Current Medications Medications (Trade) Dose Ordered Sig/Basim Route PRN Reason Start Time Stop Time Status Last Admin Propofol 100 ml @ 2.199 mls/ hr Q24H IV 06/06/25 03:00 06/06/25 13:30 Cefepime HCl 50 ml @ 12.5 mls/hr DAILY IV 06/06/25 10:00 06/06/25 16:01 DC Vancomycin HCl 0 ml @ 0 mls/hr PER PHARMACY IV 06/06/25 05:00 Albuterol (Ventolin Medneb) 2.5 mg Q6HR NEB 06/06/25 06:00 06/06/25 12:40 Acetaminophen (Tylenol Tablet) 650 mg Q6HP PRN PO PAIN SCALE 1-3 OR TEMP>100.4 06/06/25 05:00 Nitroglycerin (Ntrostat Sublingual) 0.4 mg Q5MINP PRN SL FOR CHEST PAIN 06/06/25 05:00 Morphine Sulfate 2 mg Q30M PRN IV FOR CHEST PAIN 06/06/25 05:00 Hydralazine HCl (Apresoline Injection) 10 mg Q6HP PRN IV SBP>150 06/06/25 05:00 Midazolam HCl 100 ml @ 1 mls/hr Q24H IV 06/06/25 06:15 06/06/25 06:15 Fentanyl Citrate 250 ml @ 2.5 mls/hr Q24H IV 06/06/25 06:15 06/06/25 06:15 Norepinephrine Bitartrate 250 ml @ 3.75 mls/hr Q24H IV 06/06/25 09:45 06/06/25 10:21 Aspirin (Ecotrin Enteric Coated Tablet) 81 mg DAILY PO 06/07/25 10:00 Clopidogrel Bisulfate (Plavix) 75 mg DAILY PO 06/07/25 10:00 Piperacillin Sod/ Tazobactam Sod 100 ml @ 25 mls/hr Q12HR IV 06/06/25 22:00 06/06/25 16:15 DC Heparin Sodium (Porcine) 5,000 units Q12HR SC 06/06/25 22:00 Piperacillin Sod/ Tazobactam Sod 50 ml @ 12.5 mls/hr Q8HR IV 06/06/25 22:00 Family History: Patient reports no known family medical history. Review of Systems unable to obtain due to intubation and critical status H&P Exam Vital Signs/I&O Vital Sign Date Time Temp Pulse Resp B/P (MAP) Pulse Ox O2 Delivery O2 Flow Rate FiO2 06/06/25 16:30 75 16 122/61 (81) 100 35 06/06/25 16:00 99.1 99.1 06/06/25 16:00 Mechanical Ventilator+ 06/05/25 23:19 4 Intake and Output 06/05/25 06/06/25 19:00 07:00 Intake Total 237.731 ml Balance 237.731 ml Intake IV Total 237.731 ml Physical Exam Gen: sedated, and intubated HEENT: RT tube in place Cardiac: RRR, no murmur Lungs: crackles Abd: soft, no distention Ext: no edema Neuro: sedated + Lt arm AVF Labs/Diagnostic Data Labs/Diagnostic Data Laboratory Tests Test 06/06/25 12:57 06/06/25 08:43 06/06/25 07:16 06/06/25 04:51 Range/Units POC Glucose 121 H 70-106 mg/dl D-Dimer, Quantitative 1.19 H 0.0-0.49 mg/L FEU B-Type Natriuretic Peptide 1419.97 0-100 pg/mL Test 06/06/25 03:40 06/06/25 01:17 06/06/25 01:05 06/06/25 00:45 Range/Units Blood Gas Specimen Type Arterial Blood Gas Sample Site Right radial Blood Gas Patient Temperature 37.0 Arterial Blood Date Drawn [id number] Arterial Blood pH 7.416 7.350-7.450 Arterial Blood Partial Pressure CO2 51.9 H 35.0-48.0 mmHg Arterial Blood Partial Pressure O2 194.8 H 83.0-108.0 mmHg Arterial Blood HCO3 32.6 H 21.0-28.0 mmol/L Arterial Blood Oxygen Saturation 98.6 H 94.0-98.0 % Arterial Blood Base Excess 7.1 H -2.0-3.0 mmol/L Arterial Blood Oxyhemoglobin 97.7 94.0-98.0 % Arterial Blood Carboxyhemoglobin 0.5 0.5-1.5 % Arterial Blood Methemoglobin 0.4 0.0-1.5 % Arterial Blood Deoxyhemoglobin 1.4 0.0-5.0 % Cam Test Yes Blood Gas Total Hemoglobin 9.50 L 13.5-17.5 g/dL Blood Gas Set Respiration Rate 16.0 Blood Gas Modality Vent - ac Blood Gas Spontaneous Rate 19 FiO2 % 100.0 Blood Gas Tidal Volume 500.0 Blood Gas Spontaneous Tidal Volume 519 Blood Gas PEEP or CPAP 5.0 Blood Gas Critical Value Read Back Yes Blood Gas Notified Time [id number] POC Glucose 94 70-106 mg/dl Urine Color Colorless Yellow Urine Clarity Turbid H Clear Urine pH 8.5 5.0-9.0 Urine Specific [place] 1.009 1.001-1.035 Urine Protein 3+ H Negative Urine Ketones Negative Negative Urine Blood 1+ H Negative /uL Urine Nitrite Negative Negative Urine Bilirubin Negative Negative Urine Urobilinogen Normal Negative mg/dL Urine Leukocyte Esterase Negative Negative /uL Urine RBC 50 0 - 3 /hpf Urine Microscopic WBC 26 H 0-3 /HPF Urine Squamous Epithelial Cells None seen <5 /hpf Urine Bacteria None seen None Seen /hpf Urine Mucus Few None Seen Urine Sperm Present None Seen /hpf Urine Glucose 3+ H Normal mg/dL Urine Opiates Screen Neg NEGATIVE Urine Fentanyl Screen Neg NEGATIVE Urine Barbiturates Screen Neg NEGATIVE Urine Phencyclidine Screen Neg NEGATIVE Urine Amphetamines Screen Neg NEGATIVE Urine Benzodiazepines Screen Neg NEGATIVE Urine Cocaine Screen Neg NEGATIVE Urine Cannabinoids Screen Neg NEGATIVE Sodium Level 142 136-145 mmol/L Potassium Level 5.5 H 3.5-5.1 mmol/L Chloride Level 102 98-107 mmol/L Carbon Dioxide Level 23 20-31 mmol/L Anion Gap 17 H 5-15 Blood Urea Nitrogen 48 H 9-23 mg/dL Creatinine 9.35 H 0.700-1.30 mg/dL Glomerular Filtration Rate Calc 6 >90 mL/min BUN/Creatinine Ratio 5.1 L 10.0-20.0 Serum Glucose 94 74-106 mg/dL Calcium Level 9.7 8.7-10.4 mg/dL Total Bilirubin 0.7 0.2-1.0 mg/dL Aspartate Amino Transferase (AST) 21 13-40 U/L Alanine Aminotransferase (ALT) 13 7-40 U/L Alkaline Phosphatase 77 46-116 U/L Ammonia < 10 L 11-32 umol/L Troponin I High Sensitivity 46 </=54 ng/L Test 06/06/25 00:10 06/05/25 23:39 06/05/25 22:44 06/05/25 22:24 Range/Units Blood Gas Specimen Type Arterial Blood Gas Sample Site Right radial Blood Gas Patient Temperature 37.0 Arterial Blood Date Drawn [id number] Arterial Blood pH 7.469 H 7.350-7.450 Arterial Blood Partial Pressure CO2 39.8 35.0-48.0 mmHg Arterial Blood Partial Pressure O2 91.3 83.0-108.0 mmHg Arterial Blood HCO3 28.3 H 21.0-28.0 mmol/L Arterial Blood Oxygen Saturation 96.3 94.0-98.0 % Arterial Blood Base Excess 4.3 H -2.0-3.0 mmol/L Arterial Blood Oxyhemoglobin 95.0 94.0-98.0 % Arterial Blood Carboxyhemoglobin 1.2 0.5-1.5 % Arterial Blood Methemoglobin 0.1 0.0-1.5 % Arterial Blood Deoxyhemoglobin 3.7 0.0-5.0 % Cam Test Modified Blood Gas Total Hemoglobin 10.30 L 13.5-17.5 g/dL Blood Gas Liter Flow 4.00 Blood Gas Modality Nasal cannula FiO2 % 36.0 Sodium Level 142 136-145 mmol/L Potassium Level 6.0 *H 3.5-5.1 mmol/L Chloride Level 102 98-107 mmol/L Carbon Dioxide Level 28 20-31 mmol/L Anion Gap 12 5-15 Blood Urea Nitrogen 54 H 9-23 mg/dL Creatinine 8.67 H 0.700-1.30 mg/dL Glomerular Filtration Rate Calc 6 >90 mL/min BUN/Creatinine Ratio 6.2 L 10.0-20.0 Serum Glucose 90 74-106 mg/dL Calcium Level 9.0 8.7-10.4 mg/dL Troponin I High Sensitivity 42 44 </=54 ng/L Plasma/Serum Blood Alcohol < 3.0 <10 mg/dL White Blood Count 6.6 4.4-10.8 10^3/uL Red Blood Count 3.40 L 4.5-5.90 10^6/uL Hemoglobin 10.8 L 13.5-17.5 g/dL Hematocrit 32.8 L 41.0-53.0 % Mean Corpuscular Volume 96.3 80.0-100.0 fL Mean Corpuscular Hemoglobin 31.8 28.0-32.0 pg Mean Corpuscular Hemoglobin Concent 33.0 32.0-36.0 g/dL Red Cell Distribution Width 18.5 H 11.8-14.3 % Platelet Count 179 140-450 10^3/uL Mean Platelet Volume 9.3 6.9-10.8 fL Neutrophils (%) (Auto) 76.4 37.0-80.0 % Lymphocytes (%) (Auto) 13.6 10.0-50.0 % Monocytes (%) (Auto) 7.4 0.0-12.0 % Eosinophils (%) (Auto) 2.0 0.0-7.0 % Basophils (%) (Auto) 0.6 0.0-2.0 % Neutrophils # (Auto) 5.0 1.6-8.6 10 ^3/uL Lymphocytes # (Auto) 0.9 0.4-5.4 10 ^3/uL Monocytes # (Auto) 0.5 0-1.3 10 ^3/uL Eosinophils # (Auto) 0.1 0-0.8 10 ^3/uL Basophils # (Auto) 0 0-0.2 10 ^3/uL Nucleated Red Blood Cells 0.1 % Lactic Acid Level 1.3 0.4-2.0 mmol/L Assessment ESRD on HD via left arm AVF Hyperkalemia acute hypoxic respiratory failure s/p intubation on mechanical ventilator Septic shock Multifocal pneumonia h/o HTN CAD s/p CABG Acute on chronic systolic CHF (EF: 25%) Anemia of CKD Hyperphosphatemia Secondary hyperparathyroidism Metabolic acidosis Plan: s/p HD today. net UF 1L Next HD on . will aim for 3 -3.5 L UF as tolerated IV antibiotics per primary team BETTIE post HD as needed vasopressors as needed to maintain MAP > 65 mmHg. currently on low dose Levophed f/u blood cultures Vent management per pulmonary Plan discussed with: Other NANCI KENYON MD Jun 06, 2025 16:50
[2025-06-06] MEDS ORDERED: MORPHINE SULFATE 4 MG/ML SYR/VIAL IV PRN (17:30)
--- NOTE | 2025-06-06 18:05 | DVHPNRES ---
Progress Note Date Seen: Jun 06, 2025 Resident Creating Document: NELSON ARIAS RESIDENT Medical Necessity Reason Pt with a Central, PICC or Fol: Yes The following are medically ne: Central Line, Latham Catheter Subjective Review of Systems 69-year-old male presents for evaluation of altered mental status. Patient is currently sedated and intubated. Per ED records and personnel patient woke up yesterday complaining of chest pain. Subsequently he went back to sleep and did not wake up till the afternoon around 8:00 p.m.. He woke up altered and was brought in for evaluation. Patient in the emergency department became obtunded and hypoxic. Patient was emergently intubated for airway protection. Past medical history: Heart failure with reduced ejection fraction, ESRD, dyslipidemia, hypertension, PA, CAD Past surgical history: CABG, dialysis fistula in the left upper extremity 06/06/2025: Patient seen and examined at bedside, underwent dialysis with 1 L fluid removed. Resumed home medication aspirin and Plavix. Added Zosyn to vancomycin. Objective vital signs Vital Sign Date Time Temp Pulse Resp B/P (MAP) Pulse Ox O2 Delivery O2 Flow Rate FiO2 06/06/25 16:30 75 16 122/61 (81) 100 35 06/06/25 16:00 99.1 99.1 06/06/25 16:00 Mechanical Ventilator+ 06/05/25 23:19 4 Total Intake and Output 06/05/25 06/05/25 06/06/25 15:00 23:00 07:00 Intake Total 237.731 ml Balance 237.731 ml medications Current Medications Medications Dose Ordered Sig/Basim Route Start Time Stop Time Status Last Admin Dose Admin Propofol 100 ml @ 2.199 mls/ hr Q24H IV 06/06/25 03:00 06/06/25 13:30 4.398 MLS/HR Vancomycin HCl 0 ml @ 0 mls/hr PER PHARMACY IV 06/06/25 05:00 Albuterol 2.5 mg Q6HR NEB 06/06/25 06:00 06/06/25 12:40 2.5 MG Acetaminophen 650 mg Q6HP PRN PO 06/06/25 05:00 Nitroglycerin 0.4 mg Q5MINP PRN SL 06/06/25 05:00 Hydralazine HCl 10 mg Q6HP PRN IV 06/06/25 05:00 Midazolam HCl 100 ml @ 1 mls/hr Q24H IV 06/06/25 06:15 06/06/25 06:15 1 MLS/HR Fentanyl Citrate 250 ml @ 2.5 mls/hr Q24H IV 06/06/25 06:15 06/06/25 06:15 2.5 MLS/HR Norepinephrine Bitartrate 250 ml @ 3.75 mls/hr Q24H IV 06/06/25 09:45 06/06/25 10:21 3.75 MLS/HR Aspirin 81 mg DAILY PO 06/07/25 10:00 Clopidogrel Bisulfate 75 mg DAILY PO 06/07/25 10:00 Heparin Sodium (Porcine) 5,000 units Q12HR SC 06/06/25 22:00 Piperacillin Sod/ Tazobactam Sod 50 ml @ 12.5 mls/hr Q8HR IV 06/06/25 22:00 Morphine Sulfate 2 mg Q30M PRN IV 06/06/25 17:30 Examination Gen: 69-year-old male in mild distress Skin: Warm, dry, normal color and texture, no rash. HEENT: Normocephalic atraumatic, mucous membranes moist and pink. Neck: Cervical and supraclavicular nodes normal without enlargement, trachea is midline, thyroid gland is normal without masses. Pulmonary: Intubated, diminished breath sounds bilaterally Cardiac: Regular rate and rhythm. No murmur Abdomen: Soft, nontender, nondistended, bowel sounds present all 4 quadrants, no guarding, no rigidity, no organomegaly. Extremities: No cyanosis, clubbing, no edema Neuro: Sedated laboratory and microbiology Laboratory Tests 06/06/25 00:45 06/05/25 22:24 Test 06/06/25 00:45 Range/Units Serum Glucose 94 74-106 mg/dL Microbiology Date/Time Source Procedure Growth Status 06/06/25 02:51 Trachea Gram Stain - Final Resulted 06/06/25 02:51 Trachea Respiratory Culture Pending Resulted Labs and/or images reviewed: Labs reviewed by me, Image(s) reviewed by me Problem List/Assessment/Plan Problem List/Assessment/Plan Neurology # acute metabolic encephalopathy - Head CT : No acute intracranial abnormality. 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 Chronic sequelae of microangiopathy and atrophic cortical volume loss. # Sedated Cardiovascular # Acute on chronic systolic heart failure with reduced ejection fraction 25% # pulmonary edema due to above # septic vs cardiogenic shock # coronary artery disease s/p CABG # essential hypertension - Echo from apr 2025: lvef 25%. restrictive LV filling pattern. severe chf . mild LVH aortic sclerosis. RV enlarged and dysfunction. biatrial enlargement. mild mitral regurgitation - resumed home medication aspirin, Plavix - IV hydralazine 10 mg p.r.n. Respiratory # Ventilator -intubated -on [facility] vent : VCAC Mode RR 16 TV 500ml, PEEP Of 5 and FiO2 of 30% # Acute hypoxic hypercapnic respiratory failure # Pulmonary edema # ?CAP, gram + vs gram -ve - CXR: Interval progression in diffuse multifocal bilateral pulmonary airspace disease. Cardiomegaly. - IV vancomycin, zosyn GI # Peptic ulcer prophylaxis -Pantoprazole 40 mg IV daily # Latham catheter Nephrology # ESRD on HD T,T,S # hyperkalemia # Hyperphosphatemia # Secondary hyperparathyroidism # Metabolic acidosis - received dialysis today with 1 L removed Infectious disease # ?CAP, gram + vs gram -ve # septic shock - bradley cultures - IV vancomycin, zosyn Hem/onc # anemia, likely of chronic disease, MCV 94.8 # thrombocytopenia - monitor DVT prophylaxis Heparin 5000 units subcutaneous b.i.d. Lines -PICC line -Central line -Latham catheter Drips during [facility] ventilation fentanyl 50 Versed 2 Levophed 2 Propofol 10 Critical care time 82 minutes excluding procedure. Code status discussed greater than 20 minutes: Full CODE STATUS. Granddaughters at bedside explained about the condition of the patient, patient's daughter earlier had a rapid response and is currently in the ER Plan discussed with Dr. Bateman Plan discussed with: Other (Patient's granddaughters) My Orders My Orders Orders - NELSON ARIAS RESIDENT Procedure Category Date Status Time Norepinephrine 8 PHA 06/06/25 In Process Mg/250ml Kit 09:45 Chest Portable XY 06/06/25 Resulted 09:40 Urine Bacterial GEOVANNY 06/06/25 In Process Culture 14:35 Aspirin Enteric PHA 06/07/25 In Process Coated Tablet 10:00 Clopidogrel Bisulfate PHA 06/07/25 In Process (Plavix) 10:00 Heparin Sodium PHA 06/06/25 In Process (Porcine) 22:00 Piperacillin-Tazob PHA 06/06/25 In Process 2.25gm (Zosyn 2.25gm) 22:00 Visit Coding STANDARD RES Billing Provider: RODNEY BATEMAN MD Date of Service if different f: Jun 06, 2025 Common Visit Codes: 62026-SASGXWEF CARE 30-74 MIN, 50500-IIKSAZWH CARE-EACH +30MIN NELSON ARIAS Jun 06, 2025 18:05 RODNEY BATEMAN MD Jun 07, 2025 13:28
--- NOTE | 2025-06-06 18:58 | DVH ---
CHEST RADIOGRAPH Indication: S/P CENTRAL LINE PLACEMENT Technique: Single frontal view of the chest was obtained COMPARISON: XY CHEST PORTABLE on DOS: 06/06/25, XY CHEST PORTABLE on DOS: 06/06/25, XY CHEST XRAY 1 VIEW on DOS: 06/06/25, XY CHEST PORTABLE on DOS: 06/05/25, XY CHEST PORTABLE on DOS: 05/20/25 FINDINGS: Lines and Tubes: Median sternotomy. Left central venous catheter in satisfactory position. Endotracheal tube and enteric catheter in satisfactory position. Lungs: Unchanged pulmonary edema. Pleura: Small bilateral pleural effusions, [id number]-left. No pneumothorax. Cardiomediastinal contours: Cardiomegaly. Bones: Unremarkable IMPRESSION: Left central venous catheter in satisfactory position. Unchanged pulmonary edema.
--- NOTE | 2025-06-06 19:09 | DVHNC2 ---
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: Other (Resident) Indication: Hypotension Room prepared for procedure: Yes Felt Coverer performed hand hygien: Yes Maximal sterile barrier precau: Mask/Eye shield, Sterile gown, Cap, Sterlie gloves, Large sterlie drape Skin Preparation: Chlorhexidine gluconate Skin preparation completely dr: Yes Insertion site: Left, Internal jugular Central line catheter type: [id number] dialysis Number of lumens: 3 Central line exchanged over a: No Antiseptic ointment applied to: Yes Post Assessment: Chest X-Ray, Proper placement Notes Completed central line placement with ultrasound guidance, procedure was completed with Dr Horn (Resident), under the supervision of Dr Mathews. Date of Service: Jun 06, 2025 Billing Provider: LIU MATHEWS MD Common Visit Codes: PROCEDURE ONLY Procedure Codes: [id number] NON-TUNNEL CV CATH DOLLY MCCRAY Jun 06, 2025 19:09 LIU MATHEWS MD Jun 07, 2025 09:46
[2025-06-06] MEDS: PANTOPRAZOLE 40 MG/10 ML VIAL INJ IV SCH (21:44)
[2025-06-06] MEDS: PIPERACILLIN-TAZOB 2.25GM 50 ML IV SCH (21:47)
[2025-06-06] MEDS: HEPARIN SODIUM (PORCINE) 5000 UNITS/ML 1ML VIAL SC SCH (21:54)
[2025-06-06] MEDS ORDERED: PIPERACILLIN-TAZOB 3.375GM 100 ML IV SCH (22:00)
[2025-06-07] VITALS (108 sets, daily range): BP systolic 84–200; BP diastolic 44–85; PULSE 65–100; RESP 14–23; TEMP 98.4–100.6; O2SAT 93–100
[2025-06-07 04:03] LABS: Nucleated Red Blood Cells % 0.1 %
[2025-06-07 04:04] LABS: Hematocrit 24.6 % (41.0-53.0); Hemoglobin 8.4 g/dL (13.5-17.5); Mean Corpuscular Hemoglobin 32.4 pg (28.0-32.0); Mean Corpuscular Volume 94.8 fL (80.0-100.0)
[2025-06-07 04:23] LABS: Anion Gap 9 (5-15); Chloride 98 mmol/L (98-107); Potassium 4.7 mmol/L (3.5-5.1); Sodium 141 mmol/L (136-145)
[2025-06-07 04:24] LABS: Calcium 9.7 mg/dL (8.7-10.4)
[2025-06-07 04:29] LABS: BUN/Creatinine Ratio 4.1 (10.0-20.0); Glucose 94 mg/dL (74-106)
[2025-06-07 04:44] LABS: Blood Urea Nitrogen 26 mg/dL (9-23); Carbon Dioxide 34 mmol/L (20-31)
--- NOTE | 2025-06-07 05:00 | DVH ---
CHEST RADIOGRAPH Indication: pna Technique: Single frontal view of the chest was obtained COMPARISON: XY CHEST PORTABLE on DOS: 06/06/25, XY CHEST PORTABLE on DOS: 06/06/25, XY CHEST PORTABLE on DOS: 06/06/25, XY CHEST XRAY 1 VIEW on DOS: 06/06/25, XY CHEST PORTABLE on DOS: 06/05/25 FINDINGS: Lines and Tubes: Endotracheal tube, enteric catheter and left central venous catheter in satisfactory position. Lungs: Unchanged multifocal airspace disease. Unchanged pulmonary edema. Pleura: Unchanged small bilateral pleural effusions. No pneumothorax. Cardiomediastinal contours: Cardiomegaly. Bones: Unremarkable IMPRESSION: No significant interval change.
[2025-06-07] MEDS: NOREPINEPHRINE 8 MG/250ML KIT 250 ML IV SCH (05:45)
[2025-06-07 06:24] LABS: Base Excess 8.9 mmol/L (-2.0-3.0)
[2025-06-07] MEDS: VANCOMYCIN 750MG KIT 100 ML IV ONE (09:56)
[2025-06-07] MEDS: ASPirin-EC 81 mg tab PO SCH (09:57)
[2025-06-07] MEDS: CLOPIDOGREL BISULFATE 75 MG TAB PO SCH (09:57)
[2025-06-07 13:08] LABS: Hepatitis B Surface Antigen Negative (Negative); Hepatitis C Antibody Negative (Negative)
--- NOTE | 2025-06-07 14:41 | DVHPN2 ---
Progress Note - Dictate Date Seen: Jun 07, 2025 Medical Necessity Reason Pt with a Central, PICC or Fol: Yes The following are medically ne: Central Line, Latham Catheter Subjective remains intubated vital signs Vital Sign Date Time Temp Pulse Resp B/P (MAP) Pulse Ox O2 Delivery O2 Flow Rate FiO2 06/07/25 14:15 70 16 115/62 (79) 97 06/07/25 14:00 30 06/07/25 14:00 Mechanical Ventilator+ 06/07/25 12:00 98.4 98.4 06/05/25 23:19 4 Total Intake and Output 06/06/25 06/06/25 06/07/25 15:00 23:00 07:00 Intake Total 141.423 ml 117.434 ml 156.184 ml Output Total 20 ml 15 ml Balance 141.423 ml 97.434 ml 141.184 ml medications Current Medications Medications Dose Ordered Sig/Basim Route Start Time Stop Time Status Last Admin Dose Admin Propofol 100 ml @ 2.199 mls/ hr Q24H IV 06/06/25 03:00 06/07/25 05:46 4.398 MLS/HR Vancomycin HCl 0 ml @ 0 mls/hr PER PHARMACY IV 06/06/25 05:00 Albuterol 2.5 mg Q6HR NEB 06/06/25 06:00 06/07/25 12:21 2.5 MG Acetaminophen 650 mg Q6HP PRN PO 06/06/25 05:00 Hydralazine HCl 10 mg Q6HP PRN IV 06/06/25 05:00 Midazolam HCl 100 ml @ 1 mls/hr Q24H IV 06/06/25 06:15 06/06/25 06:15 1 MLS/HR Fentanyl Citrate 250 ml @ 2.5 mls/hr Q24H IV 06/06/25 06:15 06/06/25 06:15 2.5 MLS/HR Aspirin 81 mg DAILY PO 06/07/25 10:00 06/07/25 09:57 81 MG Clopidogrel Bisulfate 75 mg DAILY PO 06/07/25 10:00 06/07/25 09:57 75 MG Heparin Sodium (Porcine) 5,000 units Q12HR SC 06/06/25 22:00 06/07/25 10:00 5,000 UNITS Piperacillin Sod/ Tazobactam Sod 50 ml @ 12.5 mls/hr Q8HR IV 06/06/25 22:00 06/07/25 05:42 12.5 MLS/HR Pantoprazole Sodium 40 mg DAILY IV 06/06/25 19:53 06/07/25 09:56 40 MG Norepinephrine Bitartrate 250 ml @ 1.875 mls/ hr Q24H IV 06/07/25 05:45 objective Gen: sedated, and intubated HEENT: RT tube in place Cardiac: RRR, no murmur Lungs: crackles Abd: soft, no distention Ext: no edema Neuro: sedated + Lt arm AVF laboratory and microbiology Laboratory Tests 06/07/25 03:21 Test 06/07/25 03:21 Range/Units Serum Glucose 94 74-106 mg/dL Assessment/Plan ESRD on HD via left arm AVF Hyperkalemia, resolved post HD Acute hypoxic respiratory failure s/p intubation on mechanical ventilator Septic shock Multifocal pneumonia h/o HTN CAD s/p CABG Acute on chronic systolic CHF (EF: 25%) Anemia of CKD Hyperphosphatemia Secondary hyperparathyroidism Metabolic acidosis Plan: s/p HD Thursday. net UF 1L repeat HD today: goal 3 L UF as tolerated IV antibiotics per primary team BETTIE post HD as needed off vasopressors f/u blood cultures Vent management per pulmonary , currently on FiO2 35 %, and PEEP of 5. plan for possible CPAP trail tomorrow. Plan discussed with: Other NANCI KENYON MD Jun 07, 2025 14:41
--- NOTE | 2025-06-07 16:36 | DVHPNRES ---
Progress Note Date Seen: Jun 07, 2025 Resident Creating Document: NELSON ARIAS RESIDENT Medical Necessity Reason Pt with a Central, PICC or Fol: Yes The following are medically ne: Central Line, [place] Catheter Subjective Review of Systems 69-year-old male presents for evaluation of altered mental status. Patient is currently sedated and intubated. Per ED records and personnel patient woke up yesterday complaining of chest pain. Subsequently he went back to sleep and did not wake up till the afternoon around 8:00 p.m.. He woke up altered and was brought in for evaluation. Patient in the emergency department became obtunded and hypoxic. Patient was emergently intubated for airway protection. Past medical history: Heart failure with reduced ejection fraction, ESRD, dyslipidemia, hypertension, [place], CAD Past surgical history: CABG, dialysis fistula in the left upper extremity 06/06/2025: Patient seen and examined at bedside, underwent dialysis with 1 L fluid removed. Resumed home medication aspirin and Plavix. Added Zosyn to vancomycin. 06/07/2025: Patient seen and examined at bedside, continues to remain on fentanyl 50, Versed 2, propofol 10. Respiratory rate on ventilator 16, tidal volume 500, peep of 5, FiO2 30%. Started tube feedings Nepro. Objective vital signs Vital Sign Date Time Temp Pulse Resp B/P (MAP) Pulse Ox O2 Delivery O2 Flow Rate FiO2 06/07/25 16:15 70 16 142/67 (92) 97 30 06/07/25 16:00 98.4 98.4 06/07/25 16:00 Mechanical Ventilator+ 06/05/25 23:19 4 Total Intake and Output 06/06/25 06/06/25 06/07/25 15:00 23:00 07:00 Intake Total 141.423 ml 117.434 ml 156.184 ml Output Total 20 ml 15 ml Balance 141.423 ml 97.434 ml 141.184 ml medications Current Medications Medications Dose Ordered Sig/Basim Route Start Time Stop Time Status Last Admin Dose Admin Propofol 100 ml @ 2.199 mls/ hr Q24H IV 06/06/25 03:00 06/07/25 14:48 4.398 MLS/HR Vancomycin HCl 0 ml @ 0 mls/hr PER PHARMACY IV 06/06/25 05:00 Albuterol 2.5 mg Q6HR NEB 06/06/25 06:00 06/07/25 12:21 2.5 MG Acetaminophen 650 mg Q6HP PRN PO 06/06/25 05:00 Hydralazine HCl 10 mg Q6HP PRN IV 06/06/25 05:00 Midazolam HCl 100 ml @ 1 mls/hr Q24H IV 06/06/25 06:15 06/07/25 15:04 1 MLS/HR Fentanyl Citrate 250 ml @ 2.5 mls/hr Q24H IV 06/06/25 06:15 06/07/25 14:53 2.5 MLS/HR Aspirin 81 mg DAILY PO 06/07/25 10:00 06/07/25 09:57 81 MG Clopidogrel Bisulfate 75 mg DAILY PO 06/07/25 10:00 06/07/25 09:57 75 MG Heparin Sodium (Porcine) 5,000 units Q12HR SC 06/06/25 22:00 06/07/25 10:00 5,000 UNITS Piperacillin Sod/ Tazobactam Sod 50 ml @ 12.5 mls/hr Q8HR IV 06/06/25 22:00 06/07/25 14:47 12.5 MLS/HR Pantoprazole Sodium 40 mg DAILY IV 06/06/25 19:53 06/07/25 09:56 40 MG Norepinephrine Bitartrate 250 ml @ 1.875 mls/ hr Q24H IV 06/07/25 05:45 Examination Skin: Warm, dry, normal color and texture, no rash. HEENT: Normocephalic atraumatic, mucous membranes moist and pink. Neck: Cervical and supraclavicular nodes normal without enlargement, trachea is midline, thyroid gland is normal without masses. Pulmonary: Intubated, diminished breath sounds bilaterally Cardiac: Regular rate and rhythm. No murmur Abdomen: Soft, nontender, nondistended, bowel sounds present all 4 quadrants, no guarding, no rigidity, no organomegaly. Extremities: No cyanosis, clubbing, no edema Neuro: Sedated laboratory and microbiology Laboratory Tests 06/07/25 03:21 Test 06/07/25 03:21 Range/Units Serum Glucose 94 74-106 mg/dL Microbiology Date/Time Source Procedure Growth Status 06/06/25 14:37 Urine - [place] Urine Culture - Preliminary No growth Resulted 06/06/25 12:11 Nose MRSA Screen - Final Complete Labs and/or images reviewed: Labs reviewed by me, Image(s) reviewed by me Problem List/Assessment/Plan Problem List/Assessment/Plan Neurology # acute metabolic encephalopathy - Head CT : No acute intracranial abnormality. 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 Chronic sequelae of microangiopathy and atrophic cortical volume loss. # Sedated Cardiovascular # Acute on chronic systolic heart failure with reduced ejection fraction 25% # pulmonary edema due to above # septic vs cardiogenic shock # coronary artery disease s/p CABG # essential hypertension - Echo from apr 2025: lvef 25%. restrictive LV filling pattern. severe chf . mild LVH aortic sclerosis. RV enlarged and dysfunction. biatrial enlargement. mild mitral regurgitation - resumed home medication aspirin, Plavix - IV hydralazine 10 mg p.r.n. Respiratory # Ventilator -int[facility]ated [facility] : VCAC Mode RR 16 TV 500ml, PEEP Of 5 and FiO2 of 30% # Acute hypoxic hypercapnic respiratory failure # Pulmonary edema # ?CAP, gram + vs gram -ve - CXR: Interval progression in diffuse multifocal bilateral pulmonary airspace disease. Cardiomegaly. - IV vancomycin, zosyn GI # Peptic ulcer prophylaxis -Pantoprazole 40 mg IV daily # [place] catheter Nephrology # ESRD on HD T,T,S # hyperkalemia # Hyperphosphatemia # Secondary hyperparathyroidism # Metabolic acidosis - received dialysis today with 1 L removed Infectious disease # ?CAP, gram + vs gram -ve # sepsis due to above - bradley cultures - IV vancomycin, zosyn Hem/onc # anemia, likely of chronic disease, MCV 94.8 # thrombocytopenia - monitor DVT prophylaxis Heparin 5000 units subcutaneous b.i.d. Nutrition Tube feedings Nepro Left IJ placed on 06/06/2025 [facility]rips [facility] fentanyl 50 Versed 2 Levophed 2 Propofol 10 Critical care time 83 minutes excluding procedure. Code status discussed greater than 20 minutes: Full CODE STATUS. Granddaughters at bedside explained about the condition of the patient, patient's daughter earlier had a rapid response and is currently in the ER Plan discussed with Dr. Darren Rodríguez discussed with: Other (RN, granddaughters) My Orders My Orders Orders - NELSON ARIAS RESIDENT Procedure Category Date Status Time Blood Culture GEOVANNY 06/06/25 In Process 19:28 Chest Portable XY 06/07/25 Resulted 04:00 Abg W/ Co-Ox RT 06/07/25 Logged 04:00 Pantoprazole PHA 06/06/25 In Process (Protonix) 19:53 Visit Coding STANDARD RES Billing Provider: RODNEY BATEMAN MD Date of Service if different f: Jun 07, 2025 Common Visit Codes: 46191-EBIEAFHR CARE 30-74 MIN, 45901-YVYJUDCV CARE-EACH +30MIN NELSON ARIAS RESIDENT Jun 07, 2025 16:36 RODNEY BATEMAN MD Jun 08, 2025 11:49
[2025-06-07] MEDS: EPOETIN ALFA-EPBX 4,000 UNIT/ML VIAL SC ONE (21:46)
[2025-06-07] MEDS: Nepro With Carb Steady 1 Liter Bottle GT SCH (22:13)
[2025-06-07] MEDS: ACETAMINOPHEN 325 MG TAB PO PRN (22:21)
[2025-06-08] VITALS (110 sets, daily range): BP systolic 72–187; BP diastolic 42–96; PULSE 70–89; RESP 13–19; TEMP 98–99.5; O2SAT 95–100
[2025-06-08 03:45] LABS: Hematocrit 27.9 % (41.0-53.0); Hemoglobin 9.6 g/dL (13.5-17.5); Mean Corpuscular Hemoglobin 32.8 pg (28.0-32.0); Mean Corpuscular Volume 95.0 fL (80.0-100.0); Nucleated Red Blood Cells % 0.0 %
[2025-06-08 03:48] LABS: Anion Gap 11 (5-15); Carbon Dioxide 30 mmol/L (20-31); Chloride 98 mmol/L (98-107); Potassium 3.9 mmol/L (3.5-5.1); Sodium 139 mmol/L (136-145)
[2025-06-08 03:49] LABS: Calcium 10.3 mg/dL (8.7-10.4)
[2025-06-08 03:54] LABS: BUN/Creatinine Ratio 3.4 (10.0-20.0); Blood Urea Nitrogen 17 mg/dL (9-23)
[2025-06-08 04:02] LABS: Glucose 125 mg/dL (74-106)
--- NOTE | 2025-06-08 06:08 | DVH ---
CHEST RADIOGRAPH INDICATION: pna TECHNIQUE: Single frontal view of the chest was obtained COMPARISON: XY CHEST PORTABLE on DOS: 06/07/25, XY CHEST PORTABLE on DOS: 06/06/25, XY CHEST PORTABLE on DOS: 06/06/25, XY CHEST PORTABLE on DOS: 06/06/25, XY CHEST XRAY 1 VIEW on DOS: 06/06/25 FINDINGS: Lines and Tubes: Unchanged. Lungs: Stable appearing bibasilar pulmonary airspace disease and bilateral pleural effusions. No pneumothorax. Cardiomediastinal contours: Cardiomegaly status post median sternotomy. Bones: Unremarkable IMPRESSION: 1. Stable cardiomegaly, bibasilar pulmonary airspace disease and bilateral pleural effusions. 2. Lines and tubes unchanged.
[2025-06-08] MEDS: SODIUM CHL 0.9% 1000 ML BAG XX ONE (07:00)
[2025-06-08 08:03] LABS: Base Excess 4.3 mmol/L (-2.0-3.0)
[2025-06-08] MEDS: VANCOMYCIN 500mg/100mL 100 ML IV ONE (12:00)
--- NOTE | 2025-06-08 12:55 | DVHPNRES ---
Progress Note Date Seen: Jun 08, 2025 Resident Creating Document: NELSON ARIAS RESIDENT Medical Necessity Reason Pt with a Central, PICC or Fol: Yes The following are medically ne: Central Line, [place] Catheter Subjective Review of Systems 69-year-old male presents for evaluation of altered mental status. Patient is currently sedated and intubated. Per ED records and personnel patient woke up yesterday complaining of chest pain. Subsequently he went back to sleep and did not wake up till the afternoon around 8:00 p.m.. He woke up altered and was brought in for evaluation. Patient in the emergency department became obtunded and hypoxic. Patient was emergently intubated for airway protection. Past medical history: Heart failure with reduced ejection fraction, ESRD, dyslipidemia, hypertension, [place], CAD Past surgical history: CABG, dialysis fistula in the left upper extremity 06/06/2025: Patient seen and examined at bedside, underwent dialysis with 1 L fluid removed. Resumed home medication aspirin and Plavix. Added Zosyn to vancomycin. 06/07/2025: Patient seen and examined at bedside, continues to remain on fentanyl 50, Versed 2, propofol 10. Respiratory rate on ventilator 16, tidal volume 500, peep of 5, FiO2 30%. Started tube feedings Nepro. 06/08/2025: Patient seen and examined at bedside, plan to undergo hemodialysis tomorrow. Chest x-ray continues to show multifocal airspace disease. Resumed home antihypertensive medications. Objective vital signs Vital Sign Date Time Temp Pulse Resp B/P (MAP) Pulse Ox O2 Delivery O2 Flow Rate FiO2 06/08/25 12:40 86 16 155/75 (101) 99 30 06/08/25 12:00 Mechanical Ventilator+ 06/08/25 08:00 99.3 99.3 Total Intake and Output 06/07/25 06/07/25 06/08/25 15:00 23:00 07:00 Intake Total 197.684 ml 299.572 ml 312.863 ml Output Total 30 ml 10 ml Balance 197.684 ml 269.572 ml 302.863 ml medications Current Medications Medications Dose Ordered Sig/Basim Route Start Time Stop Time Status Last Admin Dose Admin Propofol 100 ml @ 2.199 mls/ hr Q24H IV 06/06/25 03:00 06/08/25 08:12 4.398 MLS/HR Vancomycin HCl 0 ml @ 0 mls/hr PER PHARMACY IV 06/06/25 05:00 Albuterol 2.5 mg Q6HR NEB 06/06/25 06:00 06/08/25 12:40 2.5 MG Acetaminophen 650 mg Q6HP PRN PO 06/06/25 05:00 06/07/25 22:21 650 MG Hydralazine HCl 10 mg Q6HP PRN IV 06/06/25 05:00 Midazolam HCl 100 ml @ 1 mls/hr Q24H IV 06/06/25 06:15 06/07/25 15:04 1 MLS/HR Fentanyl Citrate 250 ml @ 2.5 mls/hr Q24H IV 06/06/25 06:15 06/07/25 14:53 2.5 MLS/HR Aspirin 81 mg DAILY PO 06/07/25 10:00 06/08/25 10:40 81 MG Clopidogrel Bisulfate 75 mg DAILY PO 06/07/25 10:00 06/08/25 10:41 75 MG Heparin Sodium (Porcine) 5,000 units Q12HR SC 06/06/25 22:00 06/08/25 10:41 5,000 UNITS Piperacillin Sod/ Tazobactam Sod 50 ml @ 12.5 mls/hr Q8HR IV 06/06/25 22:00 06/08/25 05:49 12.5 MLS/HR Pantoprazole Sodium 40 mg DAILY IV 06/06/25 19:53 06/08/25 10:40 40 MG Norepinephrine Bitartrate 250 ml @ 1.875 mls/ hr Q24H IV 06/07/25 05:45 06/07/25 18:22 1.875 MLS/HR Enteral Nutritional Formula 1,000 ml 30ML/HR GT 06/07/25 16:45 06/07/25 22:13 1,000 ML Examination Skin: Warm, dry, normal color and texture, no rash. HEENT: Normocephalic atraumatic, mucous membranes moist and pink. Neck: Cervical and supraclavicular nodes normal without enlargement, trachea is midline, thyroid gland is normal without masses. Pulmonary: Intubated, diminished breath sounds bilaterally Cardiac: Regular rate and rhythm. No murmur Abdomen: Soft, nontender, nondistended, bowel sounds present all 4 quadrants, no guarding, no rigidity, no organomegaly. Extremities: No cyanosis, clubbing, no edema Neuro: Sedated laboratory and microbiology Laboratory Tests 06/08/25 02:55 Test 06/08/25 02:55 Range/Units Serum Glucose 125 H 74-106 mg/dL Microbiology Date/Time Source Procedure Growth Status 06/06/25 20:02 Blood Blood Culture - Preliminary NO GROWTH AFTER 24 HOURS OF INCUBATION. Resulted 06/06/25 14:37 Urine - [place] Urine Culture - Preliminary No growth Resulted 06/06/25 12:11 Nose MRSA Screen - Final Complete Labs and/or images reviewed: Labs reviewed by me, Image(s) reviewed by me Problem List/Assessment/Plan Problem List/Assessment/Plan Neurology # acute metabolic encephalopathy - Head CT : No acute intracranial abnormality. 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 Chronic sequelae of microangiopathy and atrophic cortical volume loss. # Sedated Cardiovascular # Acute on chronic systolic heart failure with reduced ejection fraction 25% # pulmonary edema due to above # septic vs cardiogenic shock # coronary artery disease s/p CABG # essential hypertension - Echo from apr 2025: lvef 25%. restrictive LV filling pattern. severe chf . mild LVH aortic sclerosis. RV enlarged and dysfunction. biatrial enlargement. mild mitral regurgitation - resumed home medication aspirin, Plavix - IV hydralazine 10 mg p.r.n. Resumed home medication Coreg 3.125 b.i.d. and nifedipine 30 mg. Respiratory # Ventilator -intubated -on [facility] vent : VCAC Mode RR 16 TV 500ml, PEEP Of 5 and FiO2 of 30% # Acute hypoxic hypercapnic respiratory failure # Pulmonary edema # ?CAP, gram + vs gram -ve - CXR: Interval progression in diffuse multifocal bilateral pulmonary airspace disease. Cardiomegaly. - IV vancomycin, zosyn GI # Peptic ulcer prophylaxis -Pantoprazole 40 mg IV daily # [place] catheter Nephrology # ESRD on HD T,T,S # hyperkalemia # Hyperphosphatemia # Secondary hyperparathyroidism # Metabolic acidosis - received dialysis today with 1 L removed Infectious disease # ?CAP, gram + vs gram -ve # sepsis due to above - bradley cultures - IV vancomycin, zosyn Hem/onc # anemia, likely of chronic disease, MCV 94.8 # thrombocytopenia - monitor DVT prophylaxis Heparin 5000 units subcutaneous b.i.d. Nutrition Tube feedings Nepro Left IJ [facility]06[facility] [facility] fentanyl 50 Versed 2 Levophed 2 Propofol 10 Critical care time 53 minutes excluding procedure. Code status discussed greater than 20 minutes: Full CODE STATUS. Granddaughters at bedside explained about the condition of the patient, patient's daughter earlier had a rapid response and is currently in the ER Plan discussed with Dr. Bateman Plan discussed with: Other (RN) My Orders My Orders Orders - NELSON ARIAS RESIDENT Procedure Category Date Status Time Chest Portable XY 06/08/25 Resulted 04:00 Abg W/ Co-Ox RT 06/08/25 Logged 04:00 Nutritional PHA 06/07/25 In Process Supplements (Nepro 16:45 Visit Coding STANDARD RES Billing Provider: RODNEY BATEMAN MD Date of Service if different f: Jun 08, 2025 Common Visit Codes: 78074-RNHOYBSC CARE 30-74 MIN NELSON ARIAS Jun 08, 2025 12:55 RODNEY BATEMAN MD Jun 11, 2025 11:10
--- NOTE | 2025-06-08 13:03 | DVHPN2 ---
Progress Note - Dictate Date Seen: Jun 08, 2025 Medical Necessity Reason Pt with a Central, PICC or Fol: Yes The following are medically ne: Central Line, [place] Catheter Subjective remains intubated vital signs Vital Sign Date Time Temp Pulse Resp B/P (MAP) Pulse Ox O2 Delivery O2 Flow Rate FiO2 06/08/25 12:40 86 16 155/75 (101) 99 30 06/08/25 12:00 Mechanical Ventilator+ 06/08/25 08:00 99.3 99.3 Total Intake and Output 06/07/25 06/07/25 06/08/25 15:00 23:00 07:00 Intake Total 197.684 ml 299.572 ml 312.863 ml Output Total 30 ml 10 ml Balance 197.684 ml 269.572 ml 302.863 ml medications Current Medications Medications Dose Ordered Sig/Basim Route Start Time Stop Time Status Last Admin Dose Admin Propofol 100 ml @ 2.199 mls/ hr Q24H IV 06/06/25 03:00 06/08/25 08:12 4.398 MLS/HR Vancomycin HCl 0 ml @ 0 mls/hr PER PHARMACY IV 06/06/25 05:00 Albuterol 2.5 mg Q6HR NEB 06/06/25 06:00 06/08/25 12:40 2.5 MG Acetaminophen 650 mg Q6HP PRN PO 06/06/25 05:00 06/07/25 22:21 650 MG Hydralazine HCl 10 mg Q6HP PRN IV 06/06/25 05:00 Midazolam HCl 100 ml @ 1 mls/hr Q24H IV 06/06/25 06:15 06/07/25 15:04 1 MLS/HR Fentanyl Citrate 250 ml @ 2.5 mls/hr Q24H IV 06/06/25 06:15 06/07/25 14:53 2.5 MLS/HR Aspirin 81 mg DAILY PO 06/07/25 10:00 06/08/25 10:40 81 MG Clopidogrel Bisulfate 75 mg DAILY PO 06/07/25 10:00 06/08/25 10:41 75 MG Heparin Sodium (Porcine) 5,000 units Q12HR SC 06/06/25 22:00 06/08/25 10:41 5,000 UNITS Piperacillin Sod/ Tazobactam Sod 50 ml @ 12.5 mls/hr Q8HR IV 06/06/25 22:00 06/08/25 05:49 12.5 MLS/HR Pantoprazole Sodium 40 mg DAILY IV 06/06/25 19:53 06/08/25 10:40 40 MG Norepinephrine Bitartrate 250 ml @ 1.875 mls/ hr Q24H IV 06/07/25 05:45 06/07/25 18:22 1.875 MLS/HR Enteral Nutritional Formula 1,000 ml 30ML/HR GT 06/07/25 16:45 06/07/25 22:13 1,000 ML objective Gen: sedated, and intubated HEENT: RT tube in place Cardiac: RRR, no murmur Lungs: crackles Abd: soft, no distention Ext: no edema Neuro: sedated + Lt arm AVF laboratory and microbiology Laboratory Tests 06/08/25 02:55 Test 06/08/25 02:55 Range/Units Serum Glucose 125 H 74-106 mg/dL Assessment/Plan ESRD on HD via left arm AVF Hyperkalemia, resolved post HD Acute hypoxic respiratory failure s/p intubation on mechanical ventilator Septic shock Multifocal pneumonia h/o HTN CAD s/p CABG Acute on chronic systolic CHF (EF: 25%) Anemia of CKD Hyperphosphatemia Secondary hyperparathyroidism Metabolic acidosis Plan: s/p HD Thursday and Thursday. Next HD Thursday , goal 3.5 L UF IV antibiotics per primary team BETTIE post HD as needed off vasopressors f/u blood cultures Vent management per pulmonary , currently on FiO2 30 %, and PEEP of 5. Plan discussed with: Other NANCI KENYON MD Jun 08, 2025 13:03
[2025-06-09] VITALS (115 sets, daily range): BP systolic 86–169; BP diastolic 46–86; PULSE 59–89; RESP 15–20; TEMP 78.1–98.8; O2SAT 95–100
[2025-06-09 03:39] LABS: Hematocrit 26.4 % (41.0-53.0); Hemoglobin 8.7 g/dL (13.5-17.5); Mean Corpuscular Hemoglobin 31.7 pg (28.0-32.0); Mean Corpuscular Volume 96.2 fL (80.0-100.0); Nucleated Red Blood Cells % 0.1 %
[2025-06-09 03:55] LABS: Potassium 4.6 mmol/L (3.5-5.1); Sodium 138 mmol/L (136-145)
[2025-06-09 03:56] LABS: Anion Gap 12 (5-15); Calcium 10.4 mg/dL (8.7-10.4); Carbon Dioxide 29 mmol/L (20-31)
[2025-06-09 04:01] LABS: BUN/Creatinine Ratio 3.9 (10.0-20.0); Blood Urea Nitrogen 26 mg/dL (9-23); Chloride 97 mmol/L (98-107); Glucose 122 mg/dL (74-106)
[2025-06-09 04:28] LABS: Base Excess 1.6 mmol/L (-2.0-3.0)
--- NOTE | 2025-06-09 05:45 | DVH ---
CHEST RADIOGRAPH Indication: pna Technique: Single frontal view of the chest was obtained COMPARISON: XY CHEST PORTABLE on DOS: 01/12/24, XY CHEST PORTABLE on DOS: 09/08/23, XY CHEST PORTABLE on DOS: 09/02/23, CHEST TWO VIEWS ROUTINE on DOS: 07/01/22, CXR2 on DOS: 07/01/22 FINDINGS: Lines and Tubes: Endotracheal tube, enteric catheter and left central venous catheter in satisfactory position. Lungs: Unchanged to slightly increased multifocal airspace disease. Pleura: No effusion. No pneumothorax. Cardiomediastinal contours: Cardiomegaly. Bones: Unremarkable IMPRESSION: Unchanged to slightly increased multifocal airspace disease.
[2025-06-09] MEDS: SODIUM CHL 0.9% 1000 ML BAG XX ONE (07:00)
--- NOTE | 2025-06-09 11:33 | DVHPNRES ---
Progress Note Date Seen: Jun 09, 2025 Resident Creating Document: NELSON ARIAS RESIDENT Medical Necessity Reason Pt with a Central, PICC or Fol: Yes The following are medically ne: Central Line, [place] Catheter Subjective Review of Systems 69-year-old male presents for evaluation of altered mental status. Patient is currently sedated and intubated. Per ED records and personnel patient woke up yesterday complaining of chest pain. Subsequently he went back to sleep and did not wake up till the afternoon around 8:00 p.m.. He woke up altered and was brought in for evaluation. Patient in the emergency department became obtunded and hypoxic. Patient was emergently intubated for airway protection. Past medical history: Heart failure with reduced ejection fraction, ESRD, dyslipidemia, hypertension, [place], CAD Past surgical history: CABG, dialysis fistula in the left upper extremity 06/06/2025: Patient seen and examined at bedside, underwent dialysis with 1 L fluid removed. Resumed home medication aspirin and Plavix. Added Zosyn to vancomycin. 06/07/2025: Patient seen and examined at bedside, continues to remain on fentanyl 50, Versed 2, propofol 10. Respiratory rate on ventilator 16, tidal volume 500, peep of 5, FiO2 30%. Started tube feedings Nepro. 06/08/2025: Patient seen and examined at bedside, plan to undergo hemodialysis tomorrow. Chest x-ray continues to show multifocal airspace disease. Resumed home antihypertensive medications 06/09/2025: Patient seen and examined at bedside, currently undergoing dialysis with goal to remove 3 L. chest x-ray showing unchanged to slightly increased multifocal disease, continuing on vancomycin and Zosyn. Blood pressure on the softer side, requiring 1 mcg of Levophed during dialysis. Plan for CPAP trial in the a.m.. Objective vital signs Vital Sign Date Time Temp Pulse Resp B/P (MAP) Pulse Ox O2 Delivery O2 Flow Rate FiO2 06/09/25 10:21 67 16 95/54 (68) 99 30 06/09/25 10:00 Mechanical Ventilator 06/09/25 07:00 96.1 96.1 Total Intake and Output 06/08/25 06/08/25 06/09/25 15:00 23:00 07:00 Intake Total 27.893 ml 278.2878 ml 516.480 ml Balance 27.893 ml 278.2878 ml 516.480 ml medications Current Medications Medications Dose Ordered Sig/Basim Route Start Time Stop Time Status Last Admin Dose Admin Propofol 100 ml @ 2.199 mls/ hr Q24H IV 06/06/25 03:00 06/09/25 10:06 4.398 MLS/HR Vancomycin HCl 0 ml @ 0 mls/hr PER PHARMACY IV 06/06/25 05:00 Albuterol 2.5 mg Q6HR NEB 06/06/25 06:00 06/09/25 06:59 2.5 MG Acetaminophen 650 mg Q6HP PRN PO 06/06/25 05:00 06/07/25 22:21 650 MG Hydralazine HCl 10 mg Q6HP PRN IV 06/06/25 05:00 Midazolam HCl 100 ml @ 1 mls/hr Q24H IV 06/06/25 06:15 06/07/25 15:04 1 MLS/HR Fentanyl Citrate 250 ml @ 2.5 mls/hr Q24H IV 06/06/25 06:15 06/09/25 02:52 5 MLS/HR Aspirin 81 mg DAILY PO 06/07/25 10:00 06/08/25 10:40 81 MG Clopidogrel Bisulfate 75 mg DAILY PO 06/07/25 10:00 06/08/25 10:41 75 MG Heparin Sodium (Porcine) 5,000 units Q12HR SC 06/06/25 22:00 06/08/25 21:02 5,000 UNITS Piperacillin Sod/ Tazobactam Sod 50 ml @ 12.5 mls/hr Q8HR IV 06/06/25 22:00 06/09/25 04:57 12.5 MLS/HR Pantoprazole Sodium 40 mg DAILY IV 06/06/25 19:53 06/08/25 10:40 40 MG Norepinephrine Bitartrate 250 ml @ 1.875 mls/ hr Q24H IV 06/07/25 05:45 06/07/25 18:22 1.875 MLS/HR Enteral Nutritional Formula 1,000 ml 30ML/HR GT 06/07/25 16:45 06/08/25 20:51 1,000 ML Examination Skin: Warm, dry, normal color and texture, no rash. HEENT: Normocephalic atraumatic, mucous membranes moist and pink. Neck: Cervical and supraclavicular nodes normal without enlargement, trachea is midline, thyroid gland is normal without masses. Pulmonary: Intubated, diminished breath sounds bilaterally Cardiac: Regular rate and rhythm. No murmur Abdomen: Soft, nontender, nondistended, bowel sounds present all 4 quadrants, no guarding, no rigidity, no organomegaly. Extremities: No cyanosis, clubbing, no edema Neuro: Sedated laboratory and microbiology Laboratory Tests 06/09/25 03:10 Test 06/09/25 03:10 Range/Units Serum Glucose 122 H 74-106 mg/dL Microbiology Date/Time Source Procedure Growth Status 06/06/25 20:02 Blood Blood Culture - Preliminary NO GROWTH AFTER 48 HOURS OF INCUBATION. Resulted 06/06/25 14:37 Urine - [place] Urine Culture - Final Complete 06/06/25 12:11 Nose MRSA Screen - Final Complete Labs and/or images reviewed: Labs reviewed by me, Image(s) reviewed by me Problem List/Assessment/Plan Problem List/Assessment/Plan Neurology # acute metabolic encephalopathy - Head CT : No acute intracranial abnormality. 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 Chronic sequelae of microangiopathy and atrophic cortical volume loss. # Sedated Cardiovascular # Acute on chronic systolic heart failure with reduced ejection fraction 25% # pulmonary edema due to above # septic vs cardiogenic shock # coronary artery disease s/p CABG # essential hypertension - Echo from apr 2025: lvef 25%. restrictive LV filling pattern. severe chf . mild LVH aortic sclerosis. RV enlarged and dysfunction. biatrial enlargement. mild mitral regurgitation - resumed home medication aspirin, Plavix - IV hydralazine 10 mg p.r.n. Resumed home medication Coreg 3.125 b.i.d. and nifedipine 30 mg. Respiratory # Ventilator -intubated -on [facility] vent : VCAC Mode RR 16 TV 500ml, PEEP Of 5 and FiO2 of 30% # Acute hypoxic hypercapnic respiratory failure # Pulmonary edema # ?CAP, gram + vs gram -ve - CXR: Interval progression in diffuse multifocal bilateral pulmonary airspace disease. Cardiomegaly. - IV vancomycin, zosyn GI # Peptic ulcer prophylaxis -Pantoprazole 40 mg IV daily # [place] catheter Nephrology # ESRD on HD T,T,S # hyperkalemia # Hyperphosphatemia # Secondary hyperparathyroidism # Metabolic acidosis - received dialysis today with 1 L removed Infectious disease # ?CAP, gram + vs gram -ve # sepsis due to above - bradley cultures - IV vancomycin, zosyn Hem/onc # anemia, likely of chronic disease, MCV 94.8 # thrombocytopenia - monitor DVT prophylaxis Heparin 5000 units subcutaneous b.i.d. Nutrition Tube feedings Nepro Left IJ placed on 06/06/2025 Drips during mech ventilation fentanyl 50 Versed 2 Levophed 2 Propofol 10 Critical care time 83 minutes excluding procedure. Code status discussed greater than 20 minutes: Full CODE STATUS. Granddaughters at bedside explained about the condition of the patient, patient's daughter earlier had a rapid response and is currently in the ER Plan discussed with Dr. [place] Plan discussed with: Other (RN) My Orders My Orders Orders - NELSON ARIAS Procedure Category Date Status Time Chest Portable XY 06/09/25 Resulted 04:00 Abg W/ Co-Ox RT 06/09/25 Logged 04:00 Visit Coding STANDARD RES Billing Provider: JOE MONTANA MD Date of Service if different f: Jun 09, 2025 Common Visit Codes: 01251-[id number] CARE 30-74 MIN, [id number] CARE-EACH +30MIN NELSON ARIAS Jun 09, 2025 11:33
--- NOTE | 2025-06-09 14:32 | DVHPN2 ---
Progress Note - Dictate Date Seen: Jun 09, 2025 Medical Necessity Reason Pt with a Central, PICC or Fol: Yes The following are medically ne: Central Line, [place] Catheter Subjective remains intubated vital signs Vital Sign Date Time Temp Pulse Resp B/P (MAP) Pulse Ox O2 Delivery O2 Flow Rate FiO2 06/09/25 12:28 61 16 148/64 (92) 100 30 06/09/25 10:00 Mechanical Ventilator 06/09/25 07:00 96.1 96.1 Total Intake and Output 06/08/25 06/08/25 06/09/25 15:00 23:00 07:00 Intake Total 27.893 ml 278.2878 ml 516.480 ml Balance 27.893 ml 278.2878 ml 516.480 ml medications Current Medications Medications Dose Ordered Sig/Basim Route Start Time Stop Time Status Last Admin Dose Admin Propofol 100 ml @ 2.199 mls/ hr Q24H IV 06/06/25 03:00 06/09/25 10:06 4.398 MLS/HR Vancomycin HCl 0 ml @ 0 mls/hr PER PHARMACY IV 06/06/25 05:00 Albuterol 2.5 mg Q6HR NEB 06/06/25 06:00 06/09/25 12:28 2.5 MG Acetaminophen 650 mg Q6HP PRN PO 06/06/25 05:00 06/07/25 22:21 650 MG Hydralazine HCl 10 mg Q6HP PRN IV 06/06/25 05:00 Midazolam HCl 100 ml @ 1 mls/hr Q24H IV 06/06/25 06:15 06/07/25 15:04 1 MLS/HR Fentanyl Citrate 250 ml @ 2.5 mls/hr Q24H IV 06/06/25 06:15 06/09/25 02:52 5 MLS/HR Aspirin 81 mg DAILY PO 06/07/25 10:00 06/08/25 10:40 81 MG Clopidogrel Bisulfate 75 mg DAILY PO 06/07/25 10:00 06/08/25 10:41 75 MG Heparin Sodium (Porcine) 5,000 units Q12HR SC 06/06/25 22:00 06/08/25 21:02 5,000 UNITS Piperacillin Sod/ Tazobactam Sod 50 ml @ 12.5 mls/hr Q8HR IV 06/06/25 22:00 06/09/25 04:57 12.5 MLS/HR Pantoprazole Sodium 40 mg DAILY IV 06/06/25 19:53 06/08/25 10:40 40 MG Norepinephrine Bitartrate 250 ml @ 1.875 mls/ hr Q24H IV 06/07/25 05:45 06/07/25 18:22 1.875 MLS/HR Enteral Nutritional Formula 1,000 ml 30ML/HR GT 06/07/25 16:45 06/08/25 20:51 1,000 ML objective Gen: sedated, and intubated HEENT: RT tube in place Cardiac: RRR, no murmur Lungs: crackles Abd: soft, no distention Ext: no edema Neuro: sedated + Lt arm AVF laboratory and microbiology Laboratory Tests 06/09/25 03:10 Test 06/09/25 03:10 Range/Units Serum Glucose 122 H 74-106 mg/dL Assessment/Plan ESRD on HD via left arm AVF Hyperkalemia, resolved post HD Acute hypoxic respiratory failure s/p intubation on mechanical ventilator Septic shock Multifocal pneumonia h/o HTN CAD s/p CABG Acute on chronic systolic CHF (EF: 25%) Anemia of CKD Hyperphosphatemia Secondary hyperparathyroidism Metabolic acidosis Plan: s/p HD today - Thursday , net UF 3L Next HD on Thursday vs Thursday IV antibiotics per primary team BETTIE post HD as needed vasopressors resumed , currently very low dose f/u blood cultures Vent management per pulmonary , currently on FiO2 30 %, and PEEP of 5. Plan discussed with: Other NANCI KENYON MD Jun 09, 2025 14:32
[2025-06-09] MEDS ORDERED: DEXMEDETOMIDINE HCL IN D5W 100 ML IV SCH (16:00)
[2025-06-09] MEDS: VANCOMYCIN 500mg/100mL 100 ML IV ONE (17:12)
[2025-06-09] MEDS: DEXMEDETOMIDINE HCL IN D5W 100 ML IV SCH (20:23)
--- NOTE | 2025-06-09 22:10 | DVHINCON2 ---
Date of service: Jun 09, [address] Garrido Reason for Consultation Acute hypoxic respiratory failure requiring mechanical ventilator. History of Present Illness A 69-year-old man with PMHx of CHF, end-stage renal disease, dyslipidemia, hypertension, [place] and CAD who presented to ED on 06/05/25 for evaluation of altered mental status. Patient was sedated and intubated, unable to give history. Per ED records and personnel, patient woke up day prior to presentation complaining of chest pain. Subsequently he went back to sleep and did not wake up until around 8:00 p.m.. He woke up altered and was subsequently brought in for evaluation. Patient in the emergency department became obtunded and hypoxic and was emergently intubated for airway protection. He was admitted for further care. Pulmonary consultation is requested for evaluation and management of acute hypoxic respiratory failure requiring mechanical ventilator. Review of Systems: Unable to obtain d/t intubated status Past Medical History CHF, end-stage renal disease, dyslipidemia, hypertension, [place] and CAD Past Surgical History Dialysis access Medications: Reviewed. Allergies: Spironolactone Family History: Diabetes mellitus Social History: Nonsmoker. No alcohol or illicit drug use. Family History: Diabetes mellitus G8 MOTHER G8 FATHER Allergies: Coded Allergies: Spironolactone (Verified Allergy, Unknown, 01/12/24) Home Meds Active Scripts Hydrocodone-Acetaminophen (Hydrocodone Bitartrate/AC 5-325 mg) 1 Tab Tab, 1 TAB PO QID PRN, #30 TAB Prov:DEB CAMPA MD 05/25/25 Clindamycin Hcl (Clindamycin Hcl) 300 Mg Cap, 1 CAP PO TID, #30 CAP Prov:DEB CAMPA MD 05/25/25 Doxycycline (Monohydrate) (Doxycycline) 100 Mg Cap, 100 MG PO BID, #14 CAP Prov:CLIFFORD ANDERSEN MD 08/17/24 Cefdinir (Cefdinir) 300 Mg Cap, 1 CAP PO BID, #14 CAP Prov:CLIFFORD ANDERSEN MD 08/17/24 Aspirin (Aspir-Low) 81 Mg Tab, 81 MG PO DAILY, #30 TAB Prov:CLIFFORD ANDERSEN MD 08/17/24 Ciprofloxacin Hcl (Ciprofloxacin Hcl) 500 Mg Tab, 1 TAB PO BID for 5 Days, #10 TAB Prov:FLAVIO CHINO RESIDENT 2/4/25 Isosorbide Mononitrate (Isosorbide Mononitrate Er) 30 Mg Tab, 1 TAB PO DAILY for 30 Days, #30 TAB 5 Refills Prov:FLAVIO CHINO [facility] 07/26/24 Carvedilol (Carvedilol) 12.5 Mg Tab, 1 TAB PO BID for 30 Days, #60 TAB 1 Refill Prov:SITAFLAVIO LINARES [facility] 07/26/24 Hydralazine Hcl (Hydralazine Hcl) 25 Mg Tab, 25 MG PO TID for 30 Days, #90 TAB Prov:FLAVIO CHINO [facility] 07/26/24 Levofloxacin Hemihydrate (LEVAQUIN 500 MG) 500 Mg Tab, 1 TAB PO DAILY, #7 TAB Prov:SALEEM ARIAS MD 01/12/24 Nifedipine (Nifedipine Er) 30 Mg Tab, 90 MG PO DAILY for 30 Days, #90 TAB Prov:JOHNATHAN RUEDA [facility] 09/08/23 Cyanocobalamin (Gnp Vitamin B12) 500 Mcg Tab, 500 MCG PO DAILY for 30 Days, #30 TAB 2 Refills Prov:JOHNATHAN RUEDA [facility] 09/08/23 Carvedilol (COREG) 3.125 Mg Tab, 6.25 MG PO Q12HR for 30 Days, #120 TAB 1 Refill Prov:JOHNATHAN RUEDA [facility] 09/08/23 Aspirin (Aspirin Low Dose) 81 Mg Tab, 81 MG PO DAILY for 21 Days, #21 TAB Prov:JOHNATHAN RUEDA [facility] 09/08/23 Acetaminophen (Acetaminophen) 500 Mg Tab, 500 MG PO Q4HPRN PRN, #30 TAB Prov:ANCA JEREZ [facility] 07/01/22 Reported Medications Clopidogrel Bisulfate (CLOPIDOGREL) 75 Mg Tab, 75 MG PO DAILY for 30 Days, MG 07/22/24 Allopurinol (Allopurinol) 100 Mg Tab, 100 MG PO DAILY for 30 Days, MG 07/22/24 B-Complex W/ C & Folic Acid (Jeanine-Krystle) Tab, 60 MG OR DAILY, TAB 07/22/24 Ferric Citrate (Auryxia) 210 Mg Tab, 210 MG PO BID, TAB 07/22/24 Ropinirole Hydrochloride (Ropinirole Hcl) 2 Mg Tab, 2 MG PO DAILY, TAB 07/22/24 Cholecalciferol (VITAMIN D3) 2,000 Unit Tab, 5000 UNIT OR DAILY, TAB 07/22/24 Sevelamer Carbonate (Sevelamer Carbonate) 800 Mg Tab, 800 MG PO TID, TAB 07/22/24 Gabapentin (Gabapentin) 300 Mg Cap, 300 MG PO BID for 30 Days, MG 07/22/24 Losartan Potassium (Losartan Potassium) 50 Mg Tab, 1 TAB PO DAILY 09/03/23 Gabapentin (Gabapentin) 300 Mg Cap, 1 CAP PO DAILY 09/02/23 Atorvastatin Calcium (ATORVASTATIN CALCIUM) 40 Mg Tab, 1 TAB PO DAILY 09/02/23 Furosemide (Furosemide) 80 Mg Tab, 1 TAB PO DAILY 09/02/23 Clopidogrel Bisulfate (CLOPIDOGREL) 75 Mg Tab, 1 TAB PO DAILY 09/02/23 Cholecalciferol (VITAMIN D3) 5,000 Unit Cap, 1 CAP PO DAILY 09/02/23 B-Complex W/ C & Folic Acid (Jeanine-Krystle Rx) Tab, 1 TAB PO DAILY 09/02/23 Ropinirole Hydrochloride (Ropinirole Hcl) 0.5 Mg Tab, 1 TAB PO DAILY 09/02/23 Allopurinol (Allopurinol) 100 Mg Tab, 1 TAB PO DAILY 09/02/23 Sevelamer Hydrochloride (Sevelamer Hydrochloride) 800 Mg Tab, 1 TAB PO TID 09/02/23 Ferric Citrate (Auryxia) 210 Mg Tab, 2 TAB PO TID 09/02/23 Cinacalcet HCl (Cinacalcet Hydrochloride) 90 Mg Tab, 1 TAB PO DAILY 09/02/23 Vital Signs Vital Signs Date Time Temp Pulse Resp B/P (MAP) Pulse Ox O2 Delivery O2 Flow Rate FiO2 06/09/25 22:05 71 16 102/53 (69) 96 30 06/09/25 18:00 Mechanical Ventilator+ 06/09/25 11:30 96.6 205.9 Physical Exam Gen.: Patient lying in bed in medical ICU. Sedated, intubated on mechanical ventilator. Head: Normocephalic, atraumatic. Eyes: PERRLA. Ears: Normal external anatomy. Throat: Endotracheal tube and orogastric tube in place. Neck: Supple, trachea midline. Chest: Transmitted breath sounds bilaterally. Decreased air entry bilaterally. No wheezing. Bibasilar crackles. Cardiovascular: Positive S1, positive S2. Regular rate and rhythm. Abdomen: Positive bowel sounds in all 4 quadrants. Soft, nontender, nondistended. : Latham in place. Normal external genitalia. Rectal: Deferred. Skin: Warm, dry. Intact. Extremities: 2+ radial pulses bilaterally. No lower extremity edema. Neuro: Sedated. Labs/Diagnostic Data Labs Test 06/09/25 04:15 06/09/25 03:10 06/06/25 12:57 06/06/25 08:43 Range/Units Blood Gas Specimen Type Arterial Blood Gas Sample Site Right radial Blood Gas Patient Temperature 37.0 Arterial Blood Date Drawn [id number] Arterial Blood pH 7.449 7.350-7.450 Arterial Blood Partial Pressure CO2 37.7 35.0-48.0 mmHg Arterial Blood Partial Pressure O2 75.5 L 83.0-108.0 mmHg Arterial Blood HCO3 25.6 21.0-28.0 mmol/L Arterial Blood Oxygen Saturation 93.8 L 94.0-98.0 % Arterial Blood Base Excess 1.6 -2.0-3.0 mmol/L Arterial Blood Oxyhemoglobin 93.2 L 94.0-98.0 % Arterial Blood Carboxyhemoglobin 0.3 L 0.5-1.5 % Arterial Blood Methemoglobin 0.3 0.0-1.5 % Arterial Blood Deoxyhemoglobin 6.2 H 0.0-5.0 % Cam Test Yes Blood Gas Total Hemoglobin 9.30 L 13.5-17.5 g/dL Blood Gas Set Respiration Rate 16.0 Blood Gas Modality Vent - ac FiO2 % 30.0 Blood Gas Tidal Volume 500.0 Blood Gas PEEP or CPAP 5.0 White Blood Count 4.5 # 4.4-10.8 10^3/uL Red Blood Count 2.75 L 4.5-5.90 10^6/uL Hemoglobin 8.7 L 13.5-17.5 g/dL Hematocrit 26.4 L 41.0-53.0 % Mean Corpuscular Volume 96.2 80.0-100.0 fL Mean Corpuscular Hemoglobin 31.7 28.0-32.0 pg Mean Corpuscular Hemoglobin Concent 33.0 32.0-36.0 g/dL Red Cell Distribution Width 18.2 H 11.8-14.3 % Platelet Count 176 140-450 10^3/uL Mean Platelet Volume 9.6 6.9-10.8 fL Neutrophils (%) (Auto) 70.9 37.0-80.0 % Lymphocytes (%) (Auto) 12.6 10.0-50.0 % Monocytes (%) (Auto) 12.1 H 0.0-12.0 % Eosinophils (%) (Auto) 3.8 0.0-7.0 % Basophils (%) (Auto) 0.6 0.0-2.0 % Neutrophils # (Auto) 3.2 1.6-8.6 10 ^3/uL Lymphocytes # (Auto) 0.6 0.4-5.4 10 ^3/uL Monocytes # (Auto) 0.5 0-1.3 10 ^3/uL Eosinophils # (Auto) 0.2 0-0.8 10 ^3/uL Basophils # (Auto) 0 0-0.2 10 ^3/uL Nucleated Red Blood Cells 0.1 % Sodium Level 138 136-145 mmol/L Potassium Level 4.6 3.5-5.1 mmol/L Chloride Level 97 L 98-107 mmol/L Carbon Dioxide Level 29 20-31 mmol/L Anion Gap 12 5-15 Blood Urea Nitrogen 26 H 9-23 mg/dL Creatinine 6.74 H 0.700-1.30 mg/dL Glomerular Filtration Rate Calc 8 >90 mL/min BUN/Creatinine Ratio 3.9 L 10.0-20.0 Serum Glucose 122 H 74-106 mg/dL Calcium Level 10.4 8.7-10.4 mg/dL Random Vancomycin Level 19.2 H 5-10 ug/mL Hepatitis A IgM Antibody Negative Hepatitis B Surface Antigen Negative Negative Hepatitis B Core IgM Antibody Negative Negative Hepatitis C Antibody Negative Negative POC Glucose 121 H 70-106 mg/dl Test 06/06/25 07:16 06/06/25 04:51 06/06/25 03:40 06/06/25 01:05 Range/Units D-Dimer, Quantitative 1.19 H 0.0-0.49 mg/L FEU B-Type Natriuretic Peptide 1419.97 0-100 pg/mL Blood Gas Spontaneous Rate 19 Blood Gas Spontaneous Tidal Volume 519 Blood Gas Critical Value Read Back Yes Blood Gas Notified Time [id number] Urine Color Colorless Yellow Urine Clarity Turbid H Clear Urine pH 8.5 5.0-9.0 Urine Specific Avery 1.009 1.001-1.035 Urine Protein 3+ H Negative Urine Ketones Negative Negative Urine Blood 1+ H Negative /uL Urine Nitrite Negative Negative Urine Bilirubin Negative Negative Urine Urobilinogen Normal Negative mg/dL Urine Leukocyte Esterase Negative Negative /uL Urine RBC 50 0 - 3 /hpf Urine Microscopic WBC 26 H 0-3 /HPF Urine Squamous Epithelial Cells None seen <5 /hpf Urine Bacteria None seen None Seen /hpf Urine Mucus Few None Seen Urine Sperm Present None Seen /hpf Urine Glucose 3+ H Normal mg/dL Urine Opiates Screen Neg NEGATIVE Urine Fentanyl Screen Neg NEGATIVE Urine Barbiturates Screen Neg NEGATIVE Urine Phencyclidine Screen Neg NEGATIVE Urine Amphetamines Screen Neg NEGATIVE Urine Benzodiazepines Screen Neg NEGATIVE Urine Cocaine Screen Neg NEGATIVE Urine Cannabinoids Screen Neg NEGATIVE Test 06/06/25 00:45 06/06/25 00:10 06/05/25 22:44 06/05/25 22:24 Range/Units Total Bilirubin 0.7 0.2-1.0 mg/dL Aspartate Amino Transferase (AST) 21 13-40 U/L Alanine Aminotransferase (ALT) 13 7-40 U/L Alkaline Phosphatase 77 46-116 U/L Ammonia < 10 L 11-32 umol/L Troponin I High Sensitivity 46 </=54 ng/L Blood Gas Liter Flow 4.00 Plasma/Serum Blood Alcohol < 3.0 <10 mg/dL Lactic Acid Level 1.3 0.4-2.0 mmol/L Microbiology Date/Time Source Procedure Growth Status 06/06/25 20:02 Blood Blood Culture - Preliminary NO GROWTH AFTER 72 HOURS OF INCUBATION. Resulted 06/06/25 14:37 Urine - [place] Urine Culture - Final Complete 06/06/25 12:11 Nose MRSA Screen - Final Complete Assessment Impression: Acute hypoxic respiratory failure Acute hypercarbic respiratory failure On mechanical ventilator Septic shock Acute metabolic encephalopathy Multifocal pneumonia Pulmonary edema Acute on chronic systolic CHF with reduced EF (25%) Coronary artery disease, s/p CABG End-stage renal disease, on hemodialysis Anemia Obesity Plan: s/p intubation on mechanical ventilator. CXR image and report reviewed. Devices in place. Unchanged to slightly increased multifocal airspace disease. ABG reviewed, compensated. On AC mode; RR 16, VT 500, PEEP 5, FiO2 30% Titrate FIO2 to keep O2 saturation above 90%. VAP bundle. Daily ABG and CXR while intubated Sedate for ventilator synchrony On Fentanyl drip. Continue antibiotics. Pressors for hemodynamic support Levophed 1 mcg/min Titrate to keep mean arterial pressure greater than 65 mmHg. Requiring Levophed for HD Follow up Cardiology recs Follow up Nephrology recs Hemodialysis per Nephrology Monitor renal function Monitor electrolytes. Supplement as necessary. Monitor ins and outs. Maintain euvolemia. Monitor hemoglobin Transfuse if less than 7.0 g/dL. Recommend diet and lifestyle modifications for weight reduction Obesity complicates all care GI prophylaxis. DVT prophylaxis. Prognosis: Guarded/Poor given patient's multiple co-morbidities. Condition: Critical Rest of plan per hospitalist and other consultants. A total of 35 minutes of critical care time was spent reviewing the patient record, examining the patient, making a diagnostic and therapeutic plan, discussing this plan with the medical personnel, following up on diagnostic studies and following the patient for clinical stability excluding any and all procedures. At least 50% of this time was spent in direct, [id number] contact. Thank you, Dr. Garrido, for allowing me to participate in this patient's care. Further recommendations will depend on the patient's clinical course. Please do not hesitate to contact me if you have any questions or concerns. This medical document was created using an electronic medical record system with [employer] dictation system. Although these documentations are being carefully reviewed, there may still be some phonetic and typographical changes. The errors are purely typographical, due to imperfection on the software program, and do not reflect any compromise in the patient's medical care. Plan discussed with: Other (RN/MD) Visit Coding Pulmonary Billing Provider: JOE BURKS MD Date of Service if different f: Jun 09, 2025 Common Visit Codes: [id number] INP/OBS CARE (HIGH), [id number] CARE 30- 74 MIN JOE BURKS MD Jun 09, 2025 22:10
[2025-06-10] VITALS (104 sets, daily range): BP systolic 95–194; BP diastolic 52–95; PULSE 61–94; RESP 13–21; TEMP 60.6–99; O2SAT 96–100
[2025-06-10 03:28] LABS: Hematocrit 29.4 % (41.0-53.0); Hemoglobin 9.9 g/dL (13.5-17.5); Mean Corpuscular Hemoglobin 32.1 pg (28.0-32.0); Mean Corpuscular Volume 95.6 fL (80.0-100.0); Nucleated Red Blood Cells % 0.2 %
[2025-06-10 03:39] LABS: Anion Gap 11 (5-15); Potassium 4.1 mmol/L (3.5-5.1); Sodium 140 mmol/L (136-145)
[2025-06-10 03:41] LABS: Calcium 10.8 mg/dL (8.7-10.4); Carbon Dioxide 31 mmol/L (20-31); Chloride 98 mmol/L (98-107)
[2025-06-10 03:46] LABS: BUN/Creatinine Ratio 3.4 (10.0-20.0); Blood Urea Nitrogen 18 mg/dL (9-23)
[2025-06-10 03:49] LABS: Glucose 133 mg/dL (74-106)
--- NOTE | 2025-06-10 05:43 | DVH ---
CHEST RADIOGRAPH Indication: pna Technique: Single frontal view of the chest was obtained COMPARISON: XY CHEST PORTABLE on DOS: 06/09/25, XY CHEST PORTABLE on DOS: 01/12/24, XY CHEST PORTABLE on DOS: 09/08/23, XY CHEST PORTABLE on DOS: 09/02/23, CHEST TWO VIEWS ROUTINE on DOS: 07/01/22 FINDINGS: Lines and Tubes: Median sternotomy. Endotracheal tube and enteric catheter in satisfactory position. Left central venous catheter in satisfactory position. Lungs: Unchanged multifocal airspace disease. Pleura: No effusion.No pneumothorax. Cardiomediastinal contours: Unchanged cardiomegaly. Bones: Unremarkable IMPRESSION: Lines and tubes in satisfactory position. No significant interval change.
[2025-06-10 07:09] LABS: Base Excess 4.2 mmol/L (-2.0-3.0)
--- NOTE | 2025-06-10 14:35 | DVHPNRES ---
Progress Note Date Seen: Jun 10, 2025 Resident Creating Document: NELSON ARIAS RESIDENT Medical Necessity Reason Pt with a Central, PICC or Fol: Yes The following are medically ne: Central Line, [place] Catheter Subjective Review of Systems 69-year-old male presents for evaluation of altered mental status. Patient is currently sedated and intubated. Per ED records and personnel patient woke up yesterday complaining of chest pain. Subsequently he went back to sleep and did not wake up till the afternoon around 8:00 p.m.. He woke up altered and was brought in for evaluation. Patient in the emergency department became obtunded and hypoxic. Patient was emergently intubated for airway protection. Past medical history: Heart failure with reduced ejection fraction, ESRD, dyslipidemia, hypertension, HI, CAD Past surgical history: CABG, dialysis fistula in the left upper extremity 06/10/2025: Patient seen and examined at bedside, undergoing CPAP trial today, remains off sedation since 4:00 a.m., plan to CPAP trial again tomorrow. Chest x-ray continues to show bibasilar airspace disease, continues on vancomycin and Zosyn. Scheduled for dialysis tomorrow. Objective vital signs Vital Sign Date Time Temp Pulse Resp B/P (MAP) Pulse Ox O2 Delivery O2 Flow Rate FiO2 06/10/25 12:00 16 98 Mechanical Ventilator+ 30 30 06/10/25 12:00 97.9 69 208.2 Total Intake and Output 06/09/25 06/09/25 06/10/25 15:00 23:00 07:00 Intake Total 74.304 ml 291.830 ml 421.595 ml Output Total 0 ml Balance 74.304 ml 291.830 ml 421.595 ml medications Current Medications Medications Dose Ordered Sig/Basim Route Start Time Stop Time Status Last Admin Dose Admin Propofol 100 ml @ 2.199 mls/ hr Q24H IV 06/06/25 03:00 06/09/25 10:06 4.398 MLS/HR Vancomycin HCl 0 ml @ 0 mls/hr PER PHARMACY IV 06/06/25 05:00 Albuterol 2.5 mg Q6HR NEB 06/06/25 06:00 06/10/25 06:38 2.5 MG Acetaminophen 650 mg Q6HP PRN PO 06/06/25 05:00 06/07/25 22:21 650 MG Hydralazine HCl 10 mg Q6HP PRN IV 06/06/25 05:00 Midazolam HCl 100 ml @ 1 mls/hr Q24H IV 06/06/25 06:15 06/07/25 15:04 1 MLS/HR Fentanyl Citrate 250 ml @ 2.5 mls/hr Q24H IV 06/06/25 06:15 06/09/25 02:52 5 MLS/HR Aspirin 81 mg DAILY PO 06/07/25 10:00 06/10/25 09:03 81 MG Clopidogrel Bisulfate 75 mg DAILY PO 06/07/25 10:00 06/10/25 09:03 75 MG Heparin Sodium (Porcine) 5,000 units Q12HR SC 06/06/25 22:00 06/10/25 09:04 5,000 UNITS Piperacillin Sod/ Tazobactam Sod 50 ml @ 12.5 mls/hr Q8HR IV 06/06/25 22:00 06/10/25 05:28 12.5 MLS/HR Pantoprazole Sodium 40 mg DAILY IV 06/06/25 19:53 06/10/25 09:03 40 MG Norepinephrine Bitartrate 250 ml @ 1.875 mls/ hr Q24H IV 06/07/25 05:45 06/07/25 18:22 1.875 MLS/HR Enteral Nutritional Formula 1,000 ml 30ML/HR GT 06/07/25 16:45 06/09/25 21:03 1,000 ML Examination Skin: Warm, dry, normal color and texture, no rash. HEENT: Normocephalic atraumatic, mucous membranes moist and pink. Neck: Cervical and supraclavicular nodes normal without enlargement, trachea is midline, thyroid gland is normal without masses. Pulmonary: Intubated, diminished breath sounds bilaterally Cardiac: Regular rate and rhythm. No murmur Abdomen: Soft, nontender, nondistended, bowel sounds present all 4 quadrants, no guarding, no rigidity, no organomegaly. Extremities: No cyanosis, clubbing, no edema Neuro: Sedated laboratory and microbiology Laboratory Tests 06/10/25 03:06 Test 06/10/25 03:06 Range/Units Serum Glucose 133 H 74-106 mg/dL Microbiology Date/Time Source Procedure Growth Status 06/06/25 20:02 Blood Blood Culture - Preliminary NO GROWTH AFTER 72 HOURS OF INCUBATION. Resulted 06/06/25 14:37 Urine - [place] Urine Culture - Final Complete 06/06/25 12:11 Nose MRSA Screen - Final Complete Labs and/or images reviewed: Labs reviewed by me, Image(s) reviewed by me Problem List/Assessment/Plan Problem List/Assessment/Plan Neurology # acute metabolic encephalopathy - Head CT : No acute intracranial abnormality. 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 Chronic sequelae of microangiopathy and atrophic cortical volume loss. # Sedated Cardiovascular # Acute on chronic systolic heart failure with reduced ejection fraction 25% # pulmonary edema due to above # septic vs cardiogenic shock # coronary artery disease s/p CABG # essential hypertension - Echo from apr 2025: lvef 25%. restrictive LV filling pattern. severe chf . mild LVH aortic sclerosis. RV enlarged and dysfunction. biatrial enlargement. mild mitral regurgitation - resumed home medication aspirin, Plavix - IV hydralazine 10 mg p.r.n. Resumed home medication Coreg 3.125 b.i.d. and nifedipine 30 mg. Respiratory # Ventilator -intubated -on [facility] vent : VCAC Mode RR 16 TV 500ml, PEEP Of 5 and FiO2 of 30% -CPAP trial in the a.m. # Acute hypoxic hypercapnic respiratory failure # Pulmonary edema # ?CAP, gram + vs gram -ve - CXR: Interval progression in diffuse multifocal bilateral pulmonary airspace disease. Cardiomegaly. - IV vancomycin, zosyn GI # Peptic ulcer prophylaxis -Pantoprazole 40 mg IV daily # Latham catheter Nephrology # ESRD on HD T,T,S # hyperkalemia # Hyperphosphatemia # Secondary hyperparathyroidism # Metabolic acidosis - received dialysis today with 1 L removed Infectious disease # ?CAP, gram + vs gram -ve # sepsis due to above - bradley cultures - IV vancomycin, zosyn Hem/onc # anemia, likely of chronic disease, MCV 94.8 # thrombocytopenia - monitor DVT prophylaxis Heparin 5000 units subcutaneous b.i.d. Nutrition Tube feedings Nepro Left IJ placed on 06/06/2025 Drips during [facility] ventilation fentanyl 50 Versed 2 Levophed 2 Propofol 10 Critical care time 83 minutes excluding procedure. Code status discussed greater than 20 minutes: Full CODE STATUS. Granddaughters at bedside explained about the condition of the patient, patient's daughter earlier had a rapid response and is currently in the ER Plan discussed with Dr. [place] Plan discussed with: Other (RN) My Orders My Orders Orders - NELSON ARIAS RESIDENT Procedure Category Date Status Time Cpap Trial For Am ORDERS 06/09/25 Transmitted 15:52 Dexmedetomidine Hcl PHA 06/09/25 In Process In D5w (Precedex) 16:00 Chest Portable XY 06/10/25 Resulted 04:00 Abg W/ Co-Ox RT 06/10/25 Logged 07:00 Visit Coding STANDARD RES Billing Provider: JOE MONTANA MD Date of Service if different f: Jun 10, 2025 Common Visit Codes: 19304-NCLVPCMM CARE 30-74 MIN, 39846-[id number] CARE-EACH +30MIN NELSON ARIAS RESIDENT Jun 10, 2025 14:35
--- NOTE | 2025-06-10 22:48 | DVHPN2 ---
Subjective DOS: 06/10/2025 Patient seen and examined at bedside. intubated on mechanical ventilator. Overnight events reviewed. Changes from previous H/P or p: No Changes Objective Vitals Vital Signs Date Time Temp Pulse Resp B/P (MAP) Pulse Ox O2 Delivery O2 Flow Rate FiO2 06/10/25 22:07 78 18 133/67 (89) 100 30 06/10/25 18:45 99.0 210.2 06/10/25 18:00 Mechanical Ventilator+ Intake/Output Intake and Output 06/10/25 07:00 Intake Total 787.729 ml Output Total 0 ml Balance 787.729 ml Intake Oral 150 ml IV Total 324.729 ml Tube Feeding 313 ml Output Urine Total 0 ml Exam Gen.: Patient lying in bed in medical ICU. Intubated on mechanical ventilator. Head: Normocephalic, atraumatic. Eyes: PERRLA. Ears: Normal external anatomy. Throat: Endotracheal tube and orogastric tube in place. Neck: Supple, trachea midline. Chest: Transmitted breath sounds bilaterally. Decreased air entry bilaterally. No wheezing. Bibasilar crackles. Cardiovascular: Positive S1, positive S2. Regular rate and rhythm. Abdomen: Positive bowel sounds in all 4 quadrants. Soft, nontender, nondistended. : Latham in place. Normal external genitalia. Rectal: Deferred. Skin: Warm, dry. Intact. Extremities: 2+ radial pulses bilaterally. No lower extremity edema. Neuro: Off sedation Medications Current Medications Medications Dose Ordered Sig/Basim Route Start Time Stop Time Status Last Admin Dose Admin Propofol 100 ml @ 2.199 mls/ hr Q24H IV 06/06/25 03:00 06/09/25 10:06 4.398 MLS/HR Vancomycin HCl 0 ml @ 0 mls/hr PER PHARMACY IV 06/06/25 05:00 Albuterol 2.5 mg Q6HR NEB 06/06/25 06:00 06/10/25 18:58 2.5 MG Acetaminophen 650 mg Q6HP PRN PO 06/06/25 05:00 06/07/25 22:21 650 MG Hydralazine HCl 10 mg Q6HP PRN IV 06/06/25 05:00 Midazolam HCl 100 ml @ 1 mls/hr Q24H IV 06/06/25 06:15 06/07/25 15:04 1 MLS/HR Fentanyl Citrate 250 ml @ 2.5 mls/hr Q24H IV 06/06/25 06:15 06/10/25 21:27 7.5 MLS/HR Aspirin 81 mg DAILY PO 06/07/25 10:00 06/10/25 09:03 81 MG Clopidogrel Bisulfate 75 mg DAILY PO 06/07/25 10:00 06/10/25 09:03 75 MG Heparin Sodium (Porcine) 5,000 units Q12HR SC 06/06/25 22:00 06/10/25 21:26 5,000 UNITS Piperacillin Sod/ Tazobactam Sod 50 ml @ 12.5 mls/hr Q8HR IV 06/06/25 22:00 06/10/25 21:23 12.5 MLS/HR Pantoprazole Sodium 40 mg DAILY IV 06/06/25 19:53 06/10/25 09:03 40 MG Norepinephrine Bitartrate 250 ml @ 1.875 mls/ hr Q24H IV 06/07/25 05:45 06/07/25 18:22 1.875 MLS/HR Enteral Nutritional Formula 1,000 ml 30ML/HR GT 06/07/25 16:45 06/09/25 21:03 1,000 ML Laboratory Results Laboratory Tests 06/10/25 03:06 Chemistry Test 06/10/25 03:06 Calcium Level 10.8 mg/dL (8.7-10.4) H Urinalysis Test 06/06/25 01:05 Urine Color Colorless (Yellow) Urine Clarity Turbid (Clear) H Urine pH 8.5 (5.0-9.0) Urine Specific Wil[place] 1.009 (1.001-1.035) Urine Protein 3+ (Negative) H Urine Ketones Negative (Negative) Urine Blood 1+ /uL (Negative) H Urine Nitrite Negative (Negative) Urine Bilirubin Negative (Negative) Urine Urobilinogen Normal mg/dL (Negative) Urine Leukocyte Esterase Negative /uL (Negative) Urine RBC 50 /hpf (0 - 3) Urine Microscopic WBC 26 /HPF (0-3) H Urine Squamous Epithelial Cells None seen /hpf (<5) Urine Bacteria None seen /hpf (None Seen) Urine Mucus Few (None Seen) Urine Sperm Present /hpf (None Seen) Urine Glucose 3+ mg/dL (Normal) H Blood Gas Results Test 06/10/25 07:05 Arterial Blood pH 7.463 (7.350-7.450) FiO2 % 30.0 Microbiology Microbiology Date/Time Source Procedure Growth Status 06/06/25 20:02 Blood Blood Culture - Preliminary NO GROWTH AFTER 72 HOURS OF INCUBATION. Resulted 06/06/25 14:37 Urine - [place] Urine Culture - Final Complete 06/06/25 12:11 Nose MRSA Screen - Final Complete Assessment/Plan Assessment/Plan Impression: Acute hypoxic respiratory failure Acute hypercarbic respiratory failure On mechanical ventilator Septic shock Acute metabolic encephalopathy Multifocal pneumonia Pulmonary edema Acute on chronic systolic CHF with reduced EF (25%) Coronary artery disease, s/p CABG End-stage renal disease, on hemodialysis Anemia Obesity Events: Continue vent support On AC mode; RR 16, VT 500, PEEP 5, FiO2 30% CXR image and report reviewed. Devices in place. Unchanged to slightly increased multifocal airspace disease. ABG reviewed, alkalemia Off sedation On Precedex drip On CPAP - PS of 8, PEEP 5. Continue antibiotics Continue bronchodilators On Plavix Protonix for GI ppx Consider extubation if weaning parameters acceptable. Labs and imaging reviewed. Rest of plan as noted below. Plan: s/p intubation on mechanical ventilator. On AC mode; RR 16, VT 500, PEEP 5, FiO2 30% Titrate FIO2 to keep O2 saturation above 90%. VAP bundle. Daily ABG and CXR while intubated Continue antibiotics. Pressors for hemodynamic support Titrate to keep mean arterial pressure greater than 65 mmHg. Requiring Levophed for HD Follow up Cardiology recs Follow up Nephrology recs Hemodialysis per Nephrology Monitor renal function Monitor electrolytes. Supplement as necessary. Monitor ins and outs. Maintain euvolemia. Monitor hemoglobin Transfuse if less than 7.0 g/dL. Recommend diet and lifestyle modifications for weight reduction Obesity complicates all care GI prophylaxis. DVT prophylaxis. Prognosis: Poor given patient's multiple co-morbidities. Condition: Critical Rest of plan per hospitalist and other consultants. A total of 35 minutes of critical care time was spent reviewing the patient record, examining the patient, making a diagnostic and therapeutic plan, discussing this plan with the medical personnel, following up on diagnostic studies and following the patient for clinical stability excluding any and all procedures. At least 50% of this time was spent in direct, [id number] contact. Thank you, Dr. Garrido, for allowing me to participate in this patient's care. Further recommendations will depend on the patient's clinical course. Please do not hesitate to contact me if you have any questions or concerns. This medical document was created using an electronic medical record system with [employer] dictation system. Although these documentations are being carefully reviewed, there may still be some phonetic and typographical changes. The errors are purely typographical, due to imperfection on the software program, and do not reflect any compromise in the patient's medical care. Plan discussed with: Other (LA Lujan) Visit Coding Pulmonary Billing Provider: JOE BURKS MD Date of Service if different f: Jun 10, 2025 Common Visit Codes: 63330-[id number] INP/OBS CARE(HIGH), 81622-[id number] CARE 30-74 MIN JOE BURKS MD Jun 10, 2025 22:48
[2025-06-11] VITALS (109 sets, daily range): BP systolic 80–179; BP diastolic 49–89; PULSE 56–75; RESP 11–24; TEMP 96.6–98.8; O2SAT 96–100
[2025-06-11 04:05] LABS: Hematocrit 30.6 % (41.0-53.0); Hemoglobin 10.1 g/dL (13.5-17.5); Mean Corpuscular Hemoglobin 31.6 pg (28.0-32.0); Mean Corpuscular Volume 95.8 fL (80.0-100.0); Nucleated Red Blood Cells % 0.2 %
[2025-06-11 04:19] LABS: Albumin 3.9 g/dL (3.2-4.8); Alkaline Phosphatase 76 U/L (46-116); Anion Gap 14 (5-15); BUN/Creatinine Ratio 3.7 (10.0-20.0); Blood Urea Nitrogen 26 mg/dL (9-23); Carbon Dioxide 30 mmol/L (20-31); Chloride 98 mmol/L (98-107); Glucose 110 mg/dL (74-106); Potassium 4.3 mmol/L (3.5-5.1); Sodium 142 mmol/L (136-145); Total Protein 6.8 g/dL (5.7-8.2)
[2025-06-11 04:20] LABS: Alanine Aminotransferase < 9 U/L (7-40); Bilirubin, Total 0.5 mg/dL (0.2-1.0); Calcium 11.2 mg/dL (8.7-10.4)
--- NOTE | 2025-06-11 06:25 | DVH ---
CHEST RADIOGRAPH INDICATION: pna TECHNIQUE: Single frontal view of the chest was obtained COMPARISON: XY CHEST PORTABLE on DOS: 06/10/25, XY CHEST PORTABLE on DOS: 06/09/25, XY CHEST PORTABLE on DOS: 06/08/25, XY CHEST PORTABLE on DOS: 06/07/25, XY CHEST PORTABLE on DOS: 06/06/25, XY CHEST PORTABLE on DOS: 06/10/25 FINDINGS: Lines and Tubes: Median sternotomy. Endotracheal tube and enteric catheter in satisfactory position. Left central venous catheter in satisfactory position. Lungs: Unchanged multifocal airspace disease. Pleura: No effusion.No pneumothorax. Cardiomediastinal contours: Unchanged cardiomegaly. Bones: Unremarkable IMPRESSION: Lines and tubes in satisfactory position. No significant interval change.
[2025-06-11 06:50] LABS: Base Excess 5.3 mmol/L (-2.0-3.0)
--- NOTE | 2025-06-11 10:34 | MEDREC ---
[facility] ASP Intervention Section I [facility] ASP Intervention: Deescalate AB based on CS (PLEASE CONSIDER D/C VANCOMYCIN - NARES SCREENING FOR MRSA HAS A HIGH SPECIFICITY AND NEGATIVE PREDICTIVE VALUE FOR RULING OUT MRSA PNEUMONIA) ASTRID CARSON PHARMACIST Jun 11, 2025 10:34
--- NOTE | 2025-06-11 11:21 | DVHPN2 ---
Progress Note - Dictate Date Seen: Jun 11, 2025 Medical Necessity Reason Pt with a Central, PICC or Fol: Yes The following are medically ne: Central Line, [place] Catheter Subjective remains intubated vital signs Vital Sign Date Time Temp Pulse Resp B/P (MAP) Pulse Ox O2 Delivery O2 Flow Rate FiO2 06/11/25 10:16 60 16 152/71 (98) 98 30 06/11/25 06:45 97.0 206.6 06/11/25 06:14 Mechanical Ventilator+ Total Intake and Output 06/10/25 06/10/25 06/11/25 15:00 23:00 07:00 Intake Total 19.7215 ml 245.393 ml 464.8 ml Output Total 0 ml 0 ml Balance 19.7215 ml 245.393 ml 464.8 ml medications Current Medications Medications Dose Ordered Sig/Basim Route Start Time Stop Time Status Last Admin Dose Admin Propofol 100 ml @ 2.199 mls/ hr Q24H IV 06/06/25 03:00 06/11/25 03:28 6.597 MLS/HR Vancomycin HCl 0 ml @ 0 mls/hr PER PHARMACY IV 06/06/25 05:00 Albuterol 2.5 mg Q6HR NEB 06/06/25 06:00 06/11/25 06:29 2.5 MG Acetaminophen 650 mg Q6HP PRN PO 06/06/25 05:00 06/07/25 22:21 650 MG Hydralazine HCl 10 mg Q6HP PRN IV 06/06/25 05:00 Midazolam HCl 100 ml @ 1 mls/hr Q24H IV 06/06/25 06:15 06/07/25 15:04 1 MLS/HR Fentanyl Citrate 250 ml @ 2.5 mls/hr Q24H IV 06/06/25 06:15 06/10/25 21:27 7.5 MLS/HR Aspirin 81 mg DAILY PO 06/07/25 10:00 06/11/25 10:21 81 MG Clopidogrel Bisulfate 75 mg DAILY PO 06/07/25 10:00 06/11/25 10:22 75 MG Heparin Sodium (Porcine) 5,000 units Q12HR SC 06/06/25 22:00 06/11/25 10:25 5,000 UNITS Piperacillin Sod/ Tazobactam Sod 50 ml @ 12.5 mls/hr Q8HR IV 06/06/25 22:00 06/11/25 05:45 12.5 MLS/HR Pantoprazole Sodium 40 mg DAILY IV 06/06/25 19:53 06/11/25 10:21 40 MG Norepinephrine Bitartrate 250 ml @ 1.875 mls/ hr Q24H IV 06/07/25 05:45 06/07/25 18:22 1.875 MLS/HR Enteral Nutritional Formula 1,000 ml 30ML/HR GT 06/07/25 16:45 06/09/25 21:03 1,000 ML objective Gen: sedated, and intubated HEENT: RT tube in place Cardiac: RRR, no murmur Lungs: crackles Abd: soft, no distention Ext: no edema Neuro: sedated + Lt arm AVF laboratory and microbiology Laboratory Tests 06/11/25 03:16 Test 06/11/25 03:16 Range/Units Serum Glucose 110 H 74-106 mg/dL Assessment/Plan ESRD on HD via left arm AVF Hyperkalemia, resolved post HD Acute hypoxic respiratory failure s/p intubation on mechanical ventilator Septic shock Multifocal pneumonia h/o HTN CAD s/p CABG Acute on chronic systolic CHF (EF: 25%) Anemia of CKD Hyperphosphatemia Secondary hyperparathyroidism Metabolic acidosis Plan: scheduled for HD today. goal 3 L UF IV antibiotics per primary team BETTIE post HD as needed vasopressors resumed , currently very low dose f/u blood cultures Vent management per pulmonary , currently on FiO2 30 %, and PEEP of 5. Plan discussed with: Other NANCI KENYON MD Jun 11, 2025 11:21
--- NOTE | 2025-06-11 11:23 | DVHPN2 ---
Progress Note - Dictate Date Seen: Jun 10, 2025 Medical Necessity Reason Pt with a Central, PICC or Fol: Yes The following are medically ne: Central Line, [place] Catheter Subjective remains intubated vital signs Vital Sign Date Time Temp Pulse Resp B/P (MAP) Pulse Ox O2 Delivery O2 Flow Rate FiO2 06/11/25 10:16 60 16 152/71 (98) 98 30 06/11/25 06:45 97.0 206.6 06/11/25 06:14 Mechanical Ventilator+ Total Intake and Output 06/10/25 06/10/25 06/11/25 15:00 23:00 07:00 Intake Total 19.7215 ml 245.393 ml 464.8 ml Output Total 0 ml 0 ml Balance 19.7215 ml 245.393 ml 464.8 ml medications Current Medications Medications Dose Ordered Sig/Basim Route Start Time Stop Time Status Last Admin Dose Admin Propofol 100 ml @ 2.199 mls/ hr Q24H IV 06/06/25 03:00 06/11/25 03:28 6.597 MLS/HR Vancomycin HCl 0 ml @ 0 mls/hr PER PHARMACY IV 06/06/25 05:00 Albuterol 2.5 mg Q6HR NEB 06/06/25 06:00 06/11/25 06:29 2.5 MG Acetaminophen 650 mg Q6HP PRN PO 06/06/25 05:00 06/07/25 22:21 650 MG Hydralazine HCl 10 mg Q6HP PRN IV 06/06/25 05:00 Midazolam HCl 100 ml @ 1 mls/hr Q24H IV 06/06/25 06:15 06/07/25 15:04 1 MLS/HR Fentanyl Citrate 250 ml @ 2.5 mls/hr Q24H IV 06/06/25 06:15 06/10/25 21:27 7.5 MLS/HR Aspirin 81 mg DAILY PO 06/07/25 10:00 06/11/25 10:21 81 MG Clopidogrel Bisulfate 75 mg DAILY PO 06/07/25 10:00 06/11/25 10:22 75 MG Heparin Sodium (Porcine) 5,000 units Q12HR SC 06/06/25 22:00 06/11/25 10:25 5,000 UNITS Piperacillin Sod/ Tazobactam Sod 50 ml @ 12.5 mls/hr Q8HR IV 06/06/25 22:00 06/11/25 05:45 12.5 MLS/HR Pantoprazole Sodium 40 mg DAILY IV 06/06/25 19:53 06/11/25 10:21 40 MG Norepinephrine Bitartrate 250 ml @ 1.875 mls/ hr Q24H IV 06/07/25 05:45 06/07/25 18:22 1.875 MLS/HR Enteral Nutritional Formula 1,000 ml 30ML/HR GT 06/07/25 16:45 06/09/25 21:03 1,000 ML objective Gen: sedated, and intubated HEENT: RT tube in place Cardiac: RRR, no murmur Lungs: crackles Abd: soft, no distention Ext: no edema Neuro: sedated + Lt arm AVF laboratory and microbiology Laboratory Tests 06/11/25 03:16 Test 06/11/25 03:16 Range/Units Serum Glucose 110 H 74-106 mg/dL Assessment/Plan ESRD on HD via left arm AVF Hyperkalemia, resolved post HD Acute hypoxic respiratory failure s/p intubation on mechanical ventilator Septic shock Multifocal pneumonia h/o HTN CAD s/p CABG Acute on chronic systolic CHF (EF: 25%) Anemia of CKD Hyperphosphatemia Secondary hyperparathyroidism Metabolic acidosis Plan: last HD was on Thursday. net UF 3L Next HD on Thursday IV antibiotics per primary team BETTIE post HD as needed f/u blood cultures Vent management per pulmonary , currently on FiO2 30 %, and PEEP of 5. Plan discussed with: Other NANCI KENYON MD Jun 11, 2025 11:23
--- NOTE | 2025-06-11 14:56 | DVHPNRES ---
Progress Note Date Seen: Jun 11, 2025 Resident Creating Document: DOLLY MCCRAY RESIDENT Medical Necessity Reason Pt with a Central, PICC or Fol: Yes The following are medically ne: Central Line, [place] Catheter Subjective Review of Systems 69-year-old male presents for evaluation of altered mental status. Patient is currently sedated and intubated. Per ED records and personnel patient woke up yesterday complaining of chest pain. Subsequently he went back to sleep and did not wake up till the afternoon around 8:00 p.m.. He woke up altered and was brought in for evaluation. Patient in the emergency department became obtunded and hypoxic. Patient was emergently intubated for airway protection. Past medical history: Heart failure with reduced ejection fraction, ESRD, dyslipidemia, hypertension, VT, CAD Past surgical history: CABG, dialysis fistula in the left upper extremity 06/11/2025: Patient was seen at bedside today. Patient is sedated and ventilated. Failed CPAP trial today with low tidal volume and apneas. No significant overnight events. Hemodialysis scheduled for today. Objective vital signs Vital Sign Date Time Temp Pulse Resp B/P (MAP) Pulse Ox O2 Delivery O2 Flow Rate FiO2 06/11/25 14:05 64 17 110/54 (72) 96 30 06/11/25 06:45 97.0 206.6 06/11/25 06:14 Mechanical Ventilator+ Total Intake and Output 06/10/25 06/10/25 06/11/25 15:00 23:00 07:00 Intake Total 19.7215 ml 245.393 ml 464.8 ml Output Total 0 ml 0 ml Balance 19.7215 ml 245.393 ml 464.8 ml medications Current Medications Medications Dose Ordered Sig/Basim Route Start Time Stop Time Status Last Admin Dose Admin Propofol 100 ml @ 2.199 mls/ hr Q24H IV 06/06/25 03:00 06/11/25 13:50 10.995 MLS/HR Vancomycin HCl 0 ml @ 0 mls/hr PER PHARMACY IV 06/06/25 05:00 Albuterol 2.5 mg Q6HR NEB 06/06/25 06:00 06/11/25 12:04 2.5 MG Acetaminophen 650 mg Q6HP PRN PO 06/06/25 05:00 06/07/25 22:21 650 MG Hydralazine HCl 10 mg Q6HP PRN IV 06/06/25 05:00 Midazolam HCl 100 ml @ 1 mls/hr Q24H IV 06/06/25 06:15 06/07/25 15:04 1 MLS/HR Fentanyl Citrate 250 ml @ 2.5 mls/hr Q24H IV 06/06/25 06:15 06/10/25 21:27 7.5 MLS/HR Aspirin 81 mg DAILY PO 06/07/25 10:00 06/11/25 10:21 81 MG Clopidogrel Bisulfate 75 mg DAILY PO 06/07/25 10:00 06/11/25 10:22 75 MG Heparin Sodium (Porcine) 5,000 units Q12HR SC 06/06/25 22:00 06/11/25 10:25 5,000 UNITS Piperacillin Sod/ Tazobactam Sod 50 ml @ 12.5 mls/hr Q8HR IV 06/06/25 22:00 06/11/25 13:46 12.5 MLS/HR Pantoprazole Sodium 40 mg DAILY IV 06/06/25 19:53 06/11/25 10:21 40 MG Norepinephrine Bitartrate 250 ml @ 1.875 mls/ hr Q24H IV 06/07/25 05:45 06/07/25 18:22 1.875 MLS/HR Enteral Nutritional Formula 1,000 ml 30ML/HR GT 06/07/25 16:45 06/09/25 21:03 1,000 ML Examination Skin: Warm, dry, normal color and texture, no rash. Neck: Cervical and supraclavicular nodes normal without enlargement, trachea is midline, thyroid gland is normal without masses. Pulmonary: Intubated, breath sounds heard bilaterally Cardiac: Normal S1-S2 heard. No murmur Abdomen: Soft, nontender, nondistended, bowel sounds present all 4 quadrants, no guarding, no rigidity, no organomegaly. Extremities: No cyanosis, clubbing, no edema Neuro: Patient lightly sedated; was waking up & following some commands laboratory and microbiology Laboratory Tests 06/11/25 03:16 Test 06/11/25 03:16 Range/Units Serum Glucose 110 H 74-106 mg/dL Microbiology Date/Time Source Procedure Growth Status 06/06/25 20:02 Blood Blood Culture - Preliminary NO GROWTH AFTER 72 HOURS OF INCUBATION. Resulted 06/06/25 14:37 Urine - [place] Urine Culture - Final Complete 06/06/25 12:11 Nose MRSA Screen - Final Complete Problem List/Assessment/Plan Problem List/Assessment/Plan Neurology # Acute metabolic encephalopathy - Head CT : No acute intracranial abnormality. 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 Chronic sequelae of microangiopathy and atrophic cortical volume loss. Cardiovascular # Acute on chronic systolic heart failure with reduced ejection fraction 25% # pulmonary edema due to above # septic vs cardiogenic shock # coronary artery disease s/p CABG # essential hypertension - Echo from apr 2025: lvef 25%. restrictive LV filling pattern. severe chf . mild LVH aortic sclerosis. RV enlarged and dysfunction. biatrial enlargement. mild mitral regurgitation - resumed home medication aspirin, Plavix - IV hydralazine 10 mg p.r.n. - Resumed home medication Coreg 3.125 b.i.d. and nifedipine 30 mg. Respiratory # Ventilator -intubated -on [facility] vent : VCAC Mode RR 16 TV 500ml, PEEP Of 5 and FiO2 of 30% -CPAP trial in the a.m. # Acute hypoxic hypercapnic respiratory failure # Pulmonary edema # ?CAP, gram + vs gram -ve - CXR: Interval progression in diffuse multifocal bilateral pulmonary airspace disease. Cardiomegaly. - IV vancomycin, zosyn - CPAP trial today Gastrointestinal # Peptic ulcer prophylaxis -Pantoprazole 40 mg IV daily Genitourinary # Latham catheter Nephrology # ESRD on HD T,T,S # hyperkalemia # Hyperphosphatemia # Secondary hyperparathyroidism # Metabolic acidosis - Hemodialysis today Infectious disease # ?CAP, gram + vs gram -ve # sepsis due to above - bradley cultures - IV vancomycin, zosyn Hem/onc # Anemia, likely of chronic disease, MCV 94.8 # Thrombocytopenia - monitor DVT prophylaxis Heparin 5000 units subcutaneous b.i.d. Nutrition Tube feedings Nepro Left IJ placed on 06/06/2025 Drips during [facility] ventilation: Fentanyl 50 held Versed 2 Levophed 2 held Propofol 10 Critical care time 82 minutes excluding procedure. Code status discussed greater than 20 minutes: Full CODE STATUS. Granddaughters at bedside explained about the condition of the patient, patient's daughter earlier had a rapid response and is currently in the ER Plan discussed with Dr. [place] Plan discussed with: Other (nurses) My Orders My Orders Orders - DOLLY MCCRAY RESIDENT Procedure Category Date Status Time Cpap Trial For Am ORDERS 06/11/25 Transmitted 09:42 Comprehensive LAB 06/12/25 Verified Metabolic Panel 04:00 Magnesium LAB 06/12/25 Verified 04:00 Chest Portable XY 06/12/25 Logged 04:00 Abg W/ Co-Ox RT 06/12/25 Logged 04:00 DOLLY MCCRAY RESIDENT Jun 11, 2025 14:56
[2025-06-11] MEDS: SODIUM CHL 0.9% 1000 ML BAG XX ONE (23:00)
--- NOTE | 2025-06-11 23:54 | DVHPN2 ---
Subjective DOS: 06/11/2025 Patient seen and examined at bedside. Sedated, intubated on mechanical ventilator. Overnight events reviewed. Changes from previous H/P or p: No Changes Objective Vitals Vital Signs Date Time Temp Pulse Resp B/P (MAP) Pulse Ox O2 Delivery O2 Flow Rate FiO2 06/11/25 23:47 80/49 06/11/25 22:18 64 16 97 30 06/11/25 20:45 97.7 207.9 06/11/25 20:00 Mechanical Ventilator+ Intake/Output Intake and Output 06/11/25 07:00 Intake Total 740.5045 ml Output Total 0 ml Balance 740.5045 ml Intake Oral 120 ml IV Total 209.5045 ml Tube Feeding 411 ml Output Urine Total 0 ml Stool Total 0 ml Exam Gen.: Patient lying in bed in medical ICU. Sedated, intubated on mechanical ventilator. Head: Normocephalic, atraumatic. Eyes: PERRLA. Ears: Normal external anatomy. Throat: Endotracheal tube and orogastric tube in place. Neck: Supple, trachea midline. Chest: Transmitted breath sounds bilaterally. Decreased air entry bilaterally. No wheezing. Bibasilar crackles. Cardiovascular: Positive S1, positive S2. Regular rate and rhythm. Abdomen: Positive bowel sounds in all 4 quadrants. Soft, nontender, nondistended. : Latham in place. Normal external genitalia. Rectal: Deferred. Skin: Warm, dry. Intact. Extremities: 2+ radial pulses bilaterally. No lower extremity edema. Neuro: Sedated Medications Current Medications Medications Dose Ordered Sig/Basim Route Start Time Stop Time Status Last Admin Dose Admin Propofol 100 ml @ 2.199 mls/ hr Q24H IV 06/06/25 03:00 06/11/25 20:01 10.995 MLS/HR Vancomycin HCl 0 ml @ 0 mls/hr PER PHARMACY IV 06/06/25 05:00 Albuterol 2.5 mg Q6HR NEB 06/06/25 06:00 06/11/25 18:35 2.5 MG Acetaminophen 650 mg Q6HP PRN PO 06/06/25 05:00 06/07/25 22:21 650 MG Hydralazine HCl 10 mg Q6HP PRN IV 06/06/25 05:00 Midazolam HCl 100 ml @ 1 mls/hr Q24H IV 06/06/25 06:15 06/07/25 15:04 1 MLS/HR Fentanyl Citrate 250 ml @ 2.5 mls/hr Q24H IV 06/06/25 06:15 06/10/25 21:27 7.5 MLS/HR Aspirin 81 mg DAILY PO 06/07/25 10:00 06/11/25 10:21 81 MG Clopidogrel Bisulfate 75 mg DAILY PO 06/07/25 10:00 06/11/25 10:22 75 MG Heparin Sodium (Porcine) 5,000 units Q12HR SC 06/06/25 22:00 06/11/25 10:25 5,000 UNITS Piperacillin Sod/ Tazobactam Sod 50 ml @ 12.5 mls/hr Q8HR IV 06/06/25 22:00 06/11/25 13:46 12.5 MLS/HR Pantoprazole Sodium 40 mg DAILY IV 06/06/25 19:53 06/11/25 10:21 40 MG Norepinephrine Bitartrate 250 ml @ 1.875 mls/ hr Q24H IV 06/07/25 05:45 06/11/25 23:38 1.875 MLS/HR Enteral Nutritional Formula 1,000 ml 30ML/HR GT 06/07/25 16:45 06/11/25 18:36 1,000 ML Laboratory Results Laboratory Tests 06/11/25 03:16 Chemistry Test 06/11/25 03:16 Albumin 3.9 g/dL (3.2-4.8) Calcium Level 11.2 mg/dL (8.7-10.4) H Magnesium Level 2.8 mg/dL (1.6-2.6) H Total Protein 6.8 g/dL (5.7-8.2) LFT Test 06/11/25 03:16 Alanine Aminotransferase (ALT) < 9 U/L (7-40) Alkaline Phosphatase 76 U/L (46-116) Aspartate Amino Transferase (AST) 11 U/L (13-40) L Total Bilirubin 0.5 mg/dL (0.2-1.0) Urinalysis Test 06/06/25 01:05 Urine Color Colorless (Yellow) Urine Clarity Turbid (Clear) H Urine pH 8.5 (5.0-9.0) Urine Specific [place] 1.009 (1.001-1.035) Urine Protein 3+ (Negative) H Urine Ketones Negative (Negative) Urine Blood 1+ /uL (Negative) H Urine Nitrite Negative (Negative) Urine Bilirubin Negative (Negative) Urine Urobilinogen Normal mg/dL (Negative) Urine Leukocyte Esterase Negative /uL (Negative) Urine RBC 50 /hpf (0 - 3) Urine Microscopic WBC 26 /HPF (0-3) H Urine Squamous Epithelial Cells None seen /hpf (<5) Urine Bacteria None seen /hpf (None Seen) Urine Mucus Few (None Seen) Urine Sperm Present /hpf (None Seen) Urine Glucose 3+ mg/dL (Normal) H Blood Gas Results Test 06/11/25 06:46 Arterial Blood pH 7.481 (7.350-7.450) FiO2 % 30.0 Microbiology Microbiology Date/Time Source Procedure Growth Status 06/06/25 20:02 Blood Blood Culture - Final NO GROWTH AFTER 5 DAYS OF INCUBATION. Complete 06/06/25 14:37 Urine - [place] Urine Culture - Final Complete 06/06/25 12:11 Nose MRSA Screen - Final Complete Assessment/Plan Assessment/Plan Impression: Acute hypoxic respiratory failure Acute hypercarbic respiratory failure On mechanical ventilator Septic shock Acute metabolic encephalopathy Multifocal pneumonia Pulmonary edema Acute on chronic systolic CHF with reduced EF (25%) Coronary artery disease, s/p CABG End-stage renal disease, on hemodialysis Anemia Obesity Events: Continue vent support On AC mode; RR 16, VT 500, PEEP 5, FiO2 30% CXR image and report reviewed. Devices in place. Unchanged multifocal airspace disease. ABG reviewed, alkalemia Failed CPAP trial today with low tidal volume and apneas. No significant overnight events. Hemodialysis scheduled for today. Started on Propofol, Fentanyl, Precedex Continue antibiotics Continue bronchodilators On Plavix Protonix for GI ppx Trial of CPAP in AM. Labs and imaging reviewed. Rest of plan as noted below. Plan: s/p intubation on mechanical ventilator. On AC mode; RR 16, VT 500, PEEP 5, FiO2 30% Titrate FIO2 to keep O2 saturation above 90%. VAP bundle. Daily ABG and CXR while intubated Continue antibiotics. Pressors for hemodynamic support Titrate to keep mean arterial pressure greater than 65 mmHg. Requiring Levophed for HD Follow up Cardiology recs Follow up Nephrology recs Hemodialysis per Nephrology Monitor renal function Monitor electrolytes. Supplement as necessary. Monitor ins and outs. Maintain euvolemia. Monitor hemoglobin Transfuse if less than 7.0 g/dL. Recommend diet and lifestyle modifications for weight reduction Obesity complicates all care GI prophylaxis. DVT prophylaxis. Prognosis: Poor given patient's multiple co-morbidities. Condition: Critical Rest of plan per hospitalist and other consultants. A total of 35 minutes of critical care time was spent reviewing the patient record, examining the patient, making a diagnostic and therapeutic plan, discussing this plan with the medical personnel, following up on diagnostic studies and following the patient for clinical stability excluding any and all procedures. At least 50% of this time was spent in direct, [id number] contact. Thank you, Dr. Garrido, for allowing me to participate in this patient's care. Further recommendations will depend on the patient's clinical course. Please do not hesitate to contact me if you have any questions or concerns. This medical document was created using an electronic medical record system with [employer] computerized dictation system. Although these documentations are being carefully reviewed, there may still be some phonetic and typographical changes. The errors are purely typographical, due to imperfection on the software program, and do not reflect any compromise in the patient's medical care. Plan discussed with: Other (LA Richardson) Visit Coding Pulmonary Billing Provider: JOE BURKS MD Date of Service if different f: Jun 11, 2025 Common Visit Codes: [id number] INP/OBS CARE(HIGH), [id number] CARE 30-74 MIN JOE BURKS MD Jun 11, 2025 23:54
[2025-06-12] VITALS (91 sets, daily range): BP systolic 86–181; BP diastolic 51–93; PULSE 57–97; RESP 11–33; TEMP 97.2–98.6; O2SAT 93–100
[2025-06-12] MEDS: NOREPINEPHRINE 8 MG/250ML KIT 250 ML IV SCH (01:00)
--- NOTE | 2025-06-12 04:34 | DVH ---
CHEST RADIOGRAPH INDICATION: intubation TECHNIQUE: Single frontal view of the chest was obtained COMPARISON: XY CHEST PORTABLE on DOS: 06/11/25, XY CHEST PORTABLE on DOS: 06/10/25, XY CHEST PORTABLE on DOS: 06/09/25, XY CHEST PORTABLE on DOS: 06/08/25, XY CHEST PORTABLE on DOS: 06/07/25 FINDINGS: Lines and Tubes: Unchanged. Lungs: Stable appearing diffuse Increased prominence of the pulmonary vasculature and right pleural effusion. No pneumothorax. Cardiomediastinal contours: Cardiomegaly status post median sternotomy. Bones: Unremarkable IMPRESSION: 1. Stable appearing pulmonary edema and right pleural effusion. 2. Cardiomegaly. 3. Lines and tubes unchanged.
[2025-06-12 05:18] LABS: Hematocrit 28.6 % (41.0-53.0); Hemoglobin 9.6 g/dL (13.5-17.5); Mean Corpuscular Hemoglobin 31.6 pg (28.0-32.0); Mean Corpuscular Volume 94.5 fL (80.0-100.0); Nucleated Red Blood Cells % 0.2 %
[2025-06-12 08:40] LABS: Base Excess 6.6 mmol/L (-2.0-3.0)
[2025-06-12 08:42] LABS: Alanine Aminotransferase 11 U/L (7-40); Albumin 4.0 g/dL (3.2-4.8); Alkaline Phosphatase 76 U/L (46-116); Anion Gap 15 (5-15); BUN/Creatinine Ratio 3.9 (10.0-20.0); Bilirubin, Total 0.5 mg/dL (0.2-1.0); Blood Urea Nitrogen 20 mg/dL (9-23); Carbon Dioxide 30 mmol/L (20-31); Chloride 99 mmol/L (98-107); Magnesium 2.4 mg/dL (1.6-2.6); Potassium 3.8 mmol/L (3.5-5.1); Sodium 144 mmol/L (136-145); Total Protein 6.9 g/dL (5.7-8.2)
[2025-06-12 08:44] LABS: Calcium 10.6 mg/dL (8.7-10.4); Glucose 139 mg/dL (74-106)
--- NOTE | 2025-06-12 13:03 | DVHPN2 ---
Progress Note - Dictate Date Seen: Jun 12, 2025 Medical Necessity Reason Pt with a Central, PICC or Fol: Yes The following are medically ne: Central Line, [place] Catheter Subjective Remains on the ventilator vital signs Vital Sign Date Time Temp Pulse Resp B/P (MAP) Pulse Ox O2 Delivery O2 Flow Rate FiO2 06/12/25 12:00 30 06/12/25 12:00 70 06/12/25 12:00 16 97 Mechanical Ventilator+ 06/12/25 11:44 159/80 (106) 06/12/25 08:45 98.6 209.5 Total Intake and Output 06/11/25 06/11/25 06/12/25 15:00 23:00 07:00 Intake Total 111.34 ml 152.06 ml 415.009 ml Output Total 0 ml 0 ml Balance 111.34 ml 152.06 ml 415.009 ml medications Current Medications Medications Dose Ordered Sig/Basim Route Start Time Stop Time Status Last Admin Dose Admin Propofol 100 ml @ 2.199 mls/ hr Q24H IV 06/06/25 03:00 06/12/25 05:12 8.796 MLS/HR Vancomycin HCl 0 ml @ 0 mls/hr PER PHARMACY IV 06/06/25 05:00 Albuterol 2.5 mg Q6HR NEB 06/06/25 06:00 06/12/25 12:46 2.5 MG Acetaminophen 650 mg Q6HP PRN PO 06/06/25 05:00 06/07/25 22:21 650 MG Hydralazine HCl 10 mg Q6HP PRN IV 06/06/25 05:00 Midazolam HCl 100 ml @ 1 mls/hr Q24H IV 06/06/25 06:15 06/07/25 15:04 1 MLS/HR Fentanyl Citrate 250 ml @ 2.5 mls/hr Q24H IV 06/06/25 06:15 06/10/25 21:27 7.5 MLS/HR Aspirin 81 mg DAILY PO 06/07/25 10:00 06/12/25 09:57 81 MG Clopidogrel Bisulfate 75 mg DAILY PO 06/07/25 10:00 06/12/25 09:57 75 MG Heparin Sodium (Porcine) 5,000 units Q12HR SC 06/06/25 22:00 06/12/25 09:59 5,000 UNITS Piperacillin Sod/ Tazobactam Sod 50 ml @ 12.5 mls/hr Q8HR IV 06/06/25 22:00 06/12/25 05:56 12.5 MLS/HR Pantoprazole Sodium 40 mg DAILY IV 06/06/25 19:53 06/12/25 09:57 40 MG Enteral Nutritional Formula 1,000 ml 30ML/HR GT 06/07/25 16:45 06/11/25 18:36 1,000 ML Norepinephrine Bitartrate 250 ml @ 0.938 mls/ hr Q24H IV 06/12/25 01:00 objective Gen: sedated, and intubated HEENT: RT tube in place Cardiac: RRR, no murmur Lungs: crackles Abd: soft, no distention Ext: no edema Neuro: sedated + Lt arm AVF laboratory and microbiology Laboratory Tests 06/12/25 04:11 Test 06/12/25 04:11 Range/Units Serum Glucose 139 H 74-106 mg/dL Problem List Assessment/Plan ESRD on HD via left arm AVF Acute hypoxic respiratory failure s/p intubation on mechanical ventilator Septic shock Multifocal pneumonia h/o HTN CAD s/p CABG Acute on chronic systolic CHF (EF: 25%) Anemia of CKD Secondary hyperparathyroidism Metabolic acidosis Plan: HD on TTS schedule IV antibiotics per primary team BETTIE post HD as needed f/u blood cultures Vent management per pulmonary , currently on FiO2 30 %, and PEEP of 5. Plan discussed with: Other MIR VAZQUEZ MD Jun 12, 2025 13:03
[2025-06-12 13:36] LABS: Base Excess 7.5 mmol/L (-2.0-3.0)
--- NOTE | 2025-06-12 17:04 | DVHPNRES ---
Progress Note Date Seen: Jun 12, 2025 Resident Creating Document: NELSON ARIAS RESIDENT Medical Necessity Reason Pt with a Central, PICC or Fol: Yes The following are medically ne: Central Line, [place] Catheter Subjective Review of Systems 69-year-old male presents for evaluation of altered mental status. Patient is currently sedated and intubated. Per ED records and personnel patient woke up yesterday complaining of chest pain. Subsequently he went back to sleep and did not wake up till the afternoon around 8:00 p.m.. He woke up altered and was brought in for evaluation. Patient in the emergency department became obtunded and hypoxic. Patient was emergently intubated for airway protection. Past medical history: Heart failure with reduced ejection fraction, ESRD, dyslipidemia, hypertension, NC, CAD Past surgical history: CABG, dialysis fistula in the left upper extremity 06/12/2025: Status post extubation today, currently on cool mist aerosol. Underwent dialysis yesterday with 1.4 L removed. Currently on day 7 of vancomycin and Zosyn to continue. Chest x-ray showed stable pulmonary edema. Detailed discussion held with daughter at bedside, all questions answered and concerns were addressed. Objective vital signs Vital Sign Date Time Temp Pulse Resp B/P (MAP) Pulse Ox O2 Delivery O2 Flow Rate FiO2 06/12/25 16:30 88 23 143/74 (97) 98 06/12/25 16:00 98.6 98.6 06/12/25 16:00 Cool Aerosol 8 30 30 Total Intake and Output 06/11/25 06/11/25 06/12/25 15:00 23:00 07:00 Intake Total 111.34 ml 152.06 ml 415.009 ml Output Total 0 ml 0 ml Balance 111.34 ml 152.06 ml 415.009 ml medications Current Medications Medications Dose Ordered Sig/Basim Route Start Time Stop Time Status Last Admin Dose Admin Propofol 100 ml @ 2.199 mls/ hr Q24H IV 06/06/25 03:00 06/12/25 05:12 8.796 MLS/HR Vancomycin HCl 0 ml @ 0 mls/hr PER PHARMACY IV 06/06/25 05:00 Albuterol 2.5 mg Q6HR NEB 06/06/25 06:00 06/12/25 12:46 2.5 MG Acetaminophen 650 mg Q6HP PRN PO 06/06/25 05:00 06/07/25 22:21 650 MG Fentanyl Citrate 250 ml @ 2.5 mls/hr Q24H IV 06/06/25 06:15 06/10/25 21:27 7.5 MLS/HR Aspirin 81 mg DAILY PO 06/07/25 10:00 06/12/25 09:57 81 MG Clopidogrel Bisulfate 75 mg DAILY PO 06/07/25 10:00 06/12/25 09:57 75 MG Heparin Sodium (Porcine) 5,000 units Q12HR SC 06/06/25 22:00 06/12/25 09:59 5,000 UNITS Piperacillin Sod/ Tazobactam Sod 50 ml @ 12.5 mls/hr Q8HR IV 06/06/25 22:00 06/12/25 13:25 12.5 MLS/HR Pantoprazole Sodium 40 mg DAILY IV 06/06/25 19:53 06/12/25 09:57 40 MG Enteral Nutritional Formula 1,000 ml 30ML/HR GT 06/07/25 16:45 06/11/25 18:36 1,000 ML Hydralazine HCl 25 mg TID PO 06/12/25 14:00 06/12/25 14:01 25 MG Nifedipine 60 mg DAILY PO 06/13/25 10:00 Examination Skin: Warm, dry, normal color and texture, no rash. HEENT: Normocephalic atraumatic, mucous membranes moist and pink. Neck: Cervical and supraclavicular nodes normal without enlargement, trachea is midline, thyroid gland is normal without masses. Pulmonary: Intubated, diminished breath sounds bilaterally Cardiac: Regular rate and rhythm. No murmur Abdomen: Soft, nontender, nondistended, bowel sounds present all 4 quadrants, no guarding, no rigidity, no organomegaly. Extremities: No cyanosis, clubbing, no edema Neuro: Sedated laboratory and microbiology Laboratory Tests 06/12/25 04:11 Test 06/12/25 04:11 Range/Units Serum Glucose 139 H 74-106 mg/dL Microbiology Date/Time Source Procedure Growth Status 06/06/25 20:02 Blood Blood Culture - Final NO GROWTH AFTER 5 DAYS OF INCUBATION. Complete 06/06/25 14:37 Urine - [place] Urine Culture - Final Complete 06/06/25 12:11 Nose MRSA Screen - Final Complete Labs and/or images reviewed: Labs reviewed by me, Image(s) reviewed by me Problem List/Assessment/Plan Problem List/Assessment/Plan Neurology # acute metabolic encephalopathy - Head CT : No acute intracranial abnormality. 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 Chronic sequelae of microangiopathy and atrophic cortical volume loss. # Sedated, currently off Cardiovascular # Acute on chronic systolic heart failure with reduced ejection fraction 25% # pulmonary edema due to above # septic vs cardiogenic shock # coronary artery disease s/p CABG # essential hypertension - Echo from apr 2025: lvef 25%. restrictive LV filling pattern. severe chf . mild LVH aortic sclerosis. RV enlarged and dysfunction. biatrial enlargement. mild mitral regurgitation - resumed home medication aspirin, Plavix - IV hydralazine 10 mg p.r.n. Resumed home medication hydralazine 25 mg t.i.d. and nifedipine 30 mg. Respiratory # Ventilator -intubated 06/05/2025 Extubated 06/12/2025 # Acute hypoxic hypercapnic respiratory failure # Pulmonary edema # ?CAP, gram + vs gram -ve - CXR: Interval progression in diffuse multifocal bilateral pulmonary airspace disease. Cardiomegaly. - IV vancomycin, zosyn GI # Peptic ulcer prophylaxis -Pantoprazole 40 mg IV daily # [place] catheter Nephrology # ESRD on HD T,T,S # hyperkalemia # Hyperphosphatemia # Secondary hyperparathyroidism # Metabolic acidosis - received dialysis today with 1 L removed Infectious disease # ?CAP, gram + vs gram -ve # sepsis due to above - bradley cultures - IV vancomycin, zosyn Hem/onc # anemia, likely of chronic disease, MCV 94.8 # thrombocytopenia - monitor DVT prophylaxis Heparin 5000 units subcutaneous b.i.d. Nutrition Tube feedings Nepro, pending swallow evaluation Ordered PT evaluation Left IJ placed on 06/06/2025 Drips during [facility] ventilation Now discontinued Critical care time 83 minutes including cpap trial and extubation and excluding procedure. Code status discussed greater than 20 minutes: Full CODE STATUS. Granddaughters at bedside explained about the condition of the patient, patient's daughter earlier had a rapid response and is currently in the ER Plan discussed with Dr. Bateman Plan discussed with: Daughter, Other (RN) My Orders My Orders Orders - NELSON ARIAS RESIDENT Procedure Category Date Status Time Hydralazine Hcl PHA 06/12/25 In Process Tablet (Apresoline 14:00 Nifedipine Er PHA 06/13/25 In Process (Procardia Xl 10:00 * Swallow Request ST 06/12/25 Transmitted 16:20 Pt Request For Service PT 06/12/25 Logged 16:20 Basic Metabolic Panel LAB 06/13/25 Verified 04:00 Visit Coding STANDARD RES Billing Provider: RODNEY BATEMAN MD Date of Service if different f: Jun 12, 2025 Common Visit Codes: 13699-[id number] CARE 30-74 MIN, [id number] CARE-EACH +30MIN NELSON ARIAS RESIDENT Jun 12, 2025 17:04 RODNEY BATEMAN MD Jun 13, 2025 16:17
[2025-06-12] MEDS: LORazepam 2MG/ML-1ML VIAL IV ONE (21:53)
[2025-06-13] VITALS (41 sets, daily range): BP systolic 90–182; BP diastolic 38–94; PULSE 58–129; RESP 10–28; TEMP 98–98.6; O2SAT 90–100
[2025-06-13] MEDS: GABAPENTIN 100 MG CAP PO ONE (01:43)
[2025-06-13 06:29] LABS: Hematocrit 29.5 % (41.0-53.0); Hemoglobin 9.6 g/dL (13.5-17.5); Mean Corpuscular Hemoglobin 31.3 pg (28.0-32.0); Mean Corpuscular Volume 95.7 fL (80.0-100.0); Nucleated Red Blood Cells % 0.0 %
[2025-06-13 06:40] LABS: Anion Gap 18 (5-15); Carbon Dioxide 24 mmol/L (20-31); Chloride 100 mmol/L (98-107); Sodium 142 mmol/L (136-145)
[2025-06-13 06:47] LABS: BUN/Creatinine Ratio 4.3 (10.0-20.0); Glucose 92 mg/dL (74-106)
[2025-06-13 06:49] LABS: Blood Urea Nitrogen 33 mg/dL (9-23); Calcium 11.2 mg/dL (8.7-10.4); Potassium 3.5 mmol/L (3.5-5.1)
[2025-06-13] MEDS ORDERED: CARVEDILOL 3.125 MG TAB PO SCH ×2 (07:30)
[2025-06-13] MEDS: METOPROLOL SUCCINATE XL 50 MG TAB PO ONE (08:27)
--- NOTE | 2025-06-13 13:54 | DVHPN2 ---
Progress Note - Dictate Date Seen: Jun 13, 2025 Medical Necessity Reason Pt with a Central, PICC or Fol: Yes The following are medically ne: Central Line, Latham Catheter Subjective Patient was extubated Feels fine No complaints Wants to go home vital signs Vital Sign Date Time Temp Pulse Resp B/P (MAP) Pulse Ox O2 Delivery O2 Flow Rate FiO2 06/13/25 13:01 109 20 129/69 (89) 06/13/25 12:31 96 06/13/25 12:01 98.6 98.6 06/13/25 12:00 Room Air* 0 21 Total Intake and Output 06/12/25 06/12/25 06/13/25 15:00 23:00 07:00 Intake Total 153.1551 ml 89.075 ml 212.5 ml Output Total 0 ml Balance 153.1551 ml 89.075 ml 212.5 ml medications Current Medications Medications Dose Ordered Sig/Basim Route Start Time Stop Time Status Last Admin Dose Admin Vancomycin HCl 0 ml @ 0 mls/hr PER PHARMACY IV 06/06/25 05:00 Albuterol 2.5 mg Q6HR NEB 06/06/25 06:00 06/13/25 11:48 2.5 MG Acetaminophen 650 mg Q6HP PRN PO 06/06/25 05:00 06/07/25 22:21 650 MG Fentanyl Citrate 250 ml @ 2.5 mls/hr Q24H IV 06/06/25 06:15 06/10/25 21:27 7.5 MLS/HR Aspirin 81 mg DAILY PO 06/07/25 10:00 06/13/25 10:33 81 MG Clopidogrel Bisulfate 75 mg DAILY PO 06/07/25 10:00 06/13/25 10:33 75 MG Heparin Sodium (Porcine) 5,000 units Q12HR SC 06/06/25 22:00 06/13/25 10:36 5,000 UNITS Piperacillin Sod/ Tazobactam Sod 50 ml @ 12.5 mls/hr Q8HR IV 06/06/25 22:00 06/13/25 05:39 12.5 MLS/HR Pantoprazole Sodium 40 mg DAILY IV 06/06/25 19:53 06/13/25 10:32 40 MG Enteral Nutritional Formula 1,000 ml 30ML/HR GT 06/07/25 16:45 06/11/25 18:36 1,000 ML Hydralazine HCl 25 mg TID PO 06/12/25 14:00 Hold 06/13/25 05:39 25 MG Nifedipine 60 mg DAILY PO 06/13/25 10:00 objective Alert and oriented x 2 HEENT:No JVD Cardiac: RRR, no murmur Lungs: crackles Abd: soft, no distention Ext: no edema Neuro: sedated + Lt arm AVF laboratory and microbiology Laboratory Tests 06/13/25 06:00 Test 06/13/25 06:00 Range/Units Serum Glucose 92 74-106 mg/dL Problem List Assessment/Plan ESRD on HD via left arm AVF Acute hypoxic respiratory failure, resolved Septic shock, resolved Multifocal pneumonia h/o HTN CAD s/p CABG Acute on chronic systolic CHF (EF: 25%) Anemia of CKD Secondary hyperparathyroidism Metabolic acidosis Plan: HD on TTS schedule Patient to have HD today Cleared for discharge home after HD today Plan discussed with: Patient MIR VAZQUEZ MD Jun 13, 2025 13:54
[2025-06-13] MEDS: CARVEDILOL 3.125 MG TAB PO ONE (18:09)
--- NOTE | 2025-06-13 18:35 | DVHPNRES ---
Progress Note Date Seen: Jun 13, 2025 Resident Creating Document: NELSON ARIAS RESIDENT Medical Necessity Reason Pt with a Central, PICC or Fol: Yes The following are medically ne: Central Line, Latham Catheter Subjective Review of Systems 69-year-old male presents for evaluation of altered mental status. Patient is currently sedated and intubated. Per ED records and personnel patient woke up yesterday complaining of chest pain. Subsequently he went back to sleep and did not wake up till the afternoon around 8:00 p.m.. He woke up altered and was brought in for evaluation. Patient in the emergency department became obtunded and hypoxic. Patient was emergently intubated for airway protection. Past medical history: Heart failure with reduced ejection fraction, ESRD, dyslipidemia, hypertension, [place], CAD Past surgical history: CABG, dialysis fistula in the left upper extremity 06/13/2025: Patient seen and examined at bedside, currently receiving dialysis. Resumed home medication Coreg 3.125 mg b.i.d., discontinued nifedipine and started patient on amlodipine 5 mg. Objective vital signs Vital Sign Date Time Temp Pulse Resp B/P (MAP) Pulse Ox O2 Delivery O2 Flow Rate FiO2 06/13/25 18:09 103 147/84 06/13/25 17:00 98.2 16 99 98.2 06/13/25 14:00 Room Air* 0 21 Total Intake and Output 06/12/25 06/12/25 06/13/25 15:00 23:00 07:00 Intake Total 153.1551 ml 89.075 ml 212.5 ml Output Total 0 ml Balance 153.1551 ml 89.075 ml 212.5 ml medications Current Medications Medications Dose Ordered Sig/Basim Route Start Time Stop Time Status Last Admin Dose Admin Albuterol 2.5 mg Q6HR NEB 06/06/25 06:00 06/13/25 11:48 2.5 MG Acetaminophen 650 mg Q6HP PRN PO 06/06/25 05:00 06/07/25 22:21 650 MG Aspirin 81 mg DAILY PO 06/07/25 10:00 06/13/25 10:33 81 MG Clopidogrel Bisulfate 75 mg DAILY PO 06/07/25 10:00 06/13/25 10:33 75 MG Heparin Sodium (Porcine) 5,000 units Q12HR SC 06/06/25 22:00 06/13/25 10:36 5,000 UNITS Pantoprazole Sodium 40 mg DAILY IV 06/06/25 19:53 06/13/25 10:32 40 MG Hydralazine HCl 25 mg TID PO 06/12/25 14:00 Hold 06/13/25 05:39 25 MG Amlodipine Besylate 5 mg DAILY PO 06/14/25 10:00 Carvedilol 3.125 mg Q12HR PO 06/14/25 10:00 Examination Skin: Warm, dry, normal color and texture, no rash. HEENT: Normocephalic atraumatic, mucous membranes moist and pink. Neck: Cervical and supraclavicular nodes normal without enlargement, trachea is midline, thyroid gland is normal without masses. Pulmonary: S/p extubation, equal breath sounds bilaterally Cardiac: Regular rate and rhythm. No murmur Abdomen: Soft, nontender, nondistended, bowel sounds present all 4 quadrants, no guarding, no rigidity, no organomegaly. Extremities: No cyanosis, clubbing, no edema Neuro: AO x4, coherent. laboratory and microbiology Laboratory Tests 06/13/25 06:00 Test 06/13/25 06:00 Range/Units Serum Glucose 92 74-106 mg/dL Microbiology Date/Time Source Procedure Growth Status 06/06/25 20:02 Blood Blood Culture - Final NO GROWTH AFTER 5 DAYS OF INCUBATION. Complete 06/06/25 14:37 Urine - [place] Urine Culture - Final Complete 06/06/25 12:11 Nose MRSA Screen - Final Complete Labs and/or images reviewed: Labs reviewed by me, Image(s) reviewed by me Problem List/Assessment/Plan Problem List/Assessment/Plan Neurology # acute metabolic encephalopathy - Head CT : No acute intracranial abnormality. 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 Chronic sequelae of microangiopathy and atrophic cortical volume loss. # Sedated, currently off Cardiovascular # Acute on chronic systolic heart failure with reduced ejection fraction 25% # pulmonary edema due to above # septic vs cardiogenic shock # coronary artery disease s/p CABG # essential hypertension - Echo from apr 2025: lvef 25%. restrictive LV filling pattern. severe chf . mild LVH aortic sclerosis. RV enlarged and dysfunction. biatrial enlargement. mild mitral regurgitation - resumed home medication aspirin, Plavix - IV hydralazine 10 mg p.r.n. Resumed home medication hydralazine 25 mg t.i.d. and nifedipine 30 mg. Respiratory # Ventilator -intubated 06/05/2025 Extubated 06/12/2025 # Acute hypoxic hypercapnic respiratory failure # Pulmonary edema # ?CAP, gram + vs gram -ve - CXR: Interval progression in diffuse multifocal bilateral pulmonary airspace disease. Cardiomegaly. - IV vancomycin, zosyn GI # Peptic ulcer prophylaxis -Pantoprazole 40 mg IV daily # Latham catheter Nephrology # ESRD on HD T,T,S # hyperkalemia # Hyperphosphatemia # Secondary hyperparathyroidism # Metabolic acidosis - received dialysis today with 1 L removed Infectious disease # ?CAP, gram + vs gram -ve # sepsis due to above - bradley cultures - IV vancomycin, zosyn Hem/onc # anemia, likely of chronic disease, MCV 94.8 # thrombocytopenia - monitor DVT prophylaxis Heparin 5000 units subcutaneous b.i.d. Nutrition Tube feedings Nepro, pending swallow evaluation Ordered PT evaluation [facility] Now discontinued Critical care time 63 minutes excluding procedure. Code status discussed greater than 20 minutes: Full CODE STATUS. Plan discussed with Dr. Bateman Plan discussed with: Patient, Other (RN) My Orders My Orders Orders - NELSON ARIAS Procedure Category Date Status Time Transfer Orders XFER 06/13/25 Transmitted 10:47 Mechanical Soft Diet DIET 06/13/25 Transmitted Lunch Basic Metabolic Panel LAB 06/14/25 Verified 04:00 Complete Blood Count LAB 06/14/25 Verified 04:00 Amlodipine Tablet PHA 06/14/25 In Process (Norvasc Tablet) 10:00 Carvedilol Tablet PHA 06/14/25 In Process (Coreg Tablet) 10:00 Dietary Evaluation Review Comments: Diet Order Renal Standard Mechanical Soft diet. Monitoring & Follow-up PO intake: Ensure adequate energy and protein within renal restrictions Weight trend: Track for stability or unintended loss/gain Lab values: Monitor renal function, electrolytes, and glucose Consultation reports: Review nephrology and other provider notes Dialysis: Maintain routine schedule and monitor for signs of uremia Goal: Prevent critical uremic syndrome and maintain metabolic stability Visit Coding STANDARD RES Billing Provider: RODNEY BATEMAN MD Date of Service if different f: Jun 13, 2025 Common Visit Codes: 36639-[id number] CARE 30-74 MIN NELSON ARIAS RESIDENT Jun 13, 2025 18:35 RODNEY BATEMAN MD Jun 18, 2025 11:13
[2025-06-14] VITALS (12 sets, daily range): BP systolic 135–152; BP diastolic 68–91; PULSE 65–108; RESP 16–20; TEMP 98.4–99; O2SAT 92–100
[2025-06-14 06:17] LABS: Hematocrit 36.5 % (41.0-53.0); Hemoglobin 12.2 g/dL (13.5-17.5); Mean Corpuscular Hemoglobin 31.8 pg (28.0-32.0); Mean Corpuscular Volume 95.2 fL (80.0-100.0); Nucleated Red Blood Cells % 0.0 %
[2025-06-14 06:31] LABS: Sodium 141 mmol/L (136-145)
[2025-06-14 06:32] LABS: Anion Gap 17 (5-15); Carbon Dioxide 28 mmol/L (20-31)
[2025-06-14 06:37] LABS: Blood Urea Nitrogen 19 mg/dL (9-23)
[2025-06-14 06:44] LABS: Calcium 11.7 mg/dL (8.7-10.4); Chloride 96 mmol/L (98-107); Glucose 108 mg/dL (74-106); Potassium 3.4 mmol/L (3.5-5.1)
[2025-06-14 06:45] LABS: BUN/Creatinine Ratio 3.3 (10.0-20.0)
--- NOTE | 2025-06-14 07:13 | ECG ---
[facility] Test Date: 2025-06-13 Test Time: 05:55:35 Pat Name: YULIYA CARDENAS Department: ICU Room: 0215T A Gender: M Full Stack Developer: alyse goldberg : 1955 Requested By: JEIMY PHILLIPS Order Number: [id number] Reading MD: Waqar Taveras Measurements Intervals [place] Rate: 112 P: 0 MN: 0 QRS: 61 QRSD: 120 T: 257 QT: 373 QTc: 509 Interpretive Statements Atrial fibrillation LVH with secondary repolarization abnormality Minimal ST elevation, inferior leads Prolonged QT interval Baseline wander in lead(s) II,III,aVR,aVL,aVF,V6 Electronically Signed On 06-16-2025 10:34:25 PST by Waqar Taveras Please click the below link to view image of tracing.
[2025-06-14] MEDS: CARVEDILOL 3.125 MG TAB PO SCH (09:04)
--- NOTE | 2025-06-14 11:52 | DVHPN2 ---
Progress Note - Dictate Date Seen: Jun 14, 2025 Medical Necessity Reason Pt with a Central, PICC or Fol: Yes The following are medically ne: Central Line, Latham Catheter Subjective Patient was extubated Feels fine No complaints Wants to go home vital signs Vital Sign Date Time Temp Pulse Resp B/P (MAP) Pulse Ox O2 Delivery O2 Flow Rate FiO2 06/14/25 10:00 94 Nasal Cannula 2.0 06/14/25 09:05 136/73 06/14/25 09:04 66 06/14/25 09:00 99.0 18 99.0 06/14/25 08:00 21 Total Intake and Output 06/13/25 06/13/25 06/14/25 15:00 23:00 07:00 Intake Total 37.5 ml 100 ml 400 ml Output Total 0 ml 8 ml Balance 37.5 ml 100 ml 392 ml medications Current Medications Medications Dose Ordered Sig/Basim Route Start Time Stop Time Status Last Admin Dose Admin Albuterol 2.5 mg Q6HR NEB 06/06/25 06:00 06/14/25 06:52 2.5 MG Acetaminophen 650 mg Q6HP PRN PO 06/06/25 05:00 06/07/25 22:21 650 MG Aspirin 81 mg DAILY PO 06/07/25 10:00 06/14/25 09:04 81 MG Clopidogrel Bisulfate 75 mg DAILY PO 06/07/25 10:00 06/14/25 09:06 75 MG Heparin Sodium (Porcine) 5,000 units Q12HR SC 06/06/25 22:00 06/14/25 09:06 5,000 UNITS Pantoprazole Sodium 40 mg DAILY IV 06/06/25 19:53 06/14/25 09:04 40 MG Hydralazine HCl 25 mg TID PO 06/12/25 14:00 Hold 06/13/25 05:39 25 MG Amlodipine Besylate 5 mg DAILY PO 06/14/25 10:00 06/14/25 09:05 5 MG Carvedilol 3.125 mg Q12HR PO 06/14/25 10:00 06/14/25 09:04 3.125 MG objective Alert and oriented x 2 HEENT:No JVD Cardiac: RRR, no murmur Lungs: crackles Abd: soft, no distention Ext: no edema Neuro: sedated + Lt arm AVF laboratory and microbiology Laboratory Tests 06/14/25 05:24 Test 06/14/25 05:24 Range/Units Serum Glucose 108 H 74-106 mg/dL Problem List Assessment/Plan ESRD on HD via left arm AVF Acute hypoxic respiratory failure, resolved Septic shock, resolved Multifocal pneumonia h/o HTN CAD s/p CABG Acute on chronic systolic CHF (EF: 25%) Anemia of CKD Secondary hyperparathyroidism Metabolic acidosis Plan: HD on TTS schedule Please send him home Dietary Evaluation Review Comments: Diet Order Renal Standard Mechanical Soft diet. Monitoring & Follow-up PO intake: Ensure adequate energy and protein within renal restrictions Weight trend: Track for stability or unintended loss/gain Lab values: Monitor renal function, electrolytes, and glucose Consultation reports: Review nephrology and other provider notes Dialysis: Maintain routine schedule and monitor for signs of uremia Goal: Prevent critical uremic syndrome and maintain metabolic stability Plan discussed with: Patient MIR VAZQUEZ MD Jun 14, 2025 11:52
--- NOTE | 2025-06-14 14:43 | DVHDSRES ---
Discharge Summary Date of Admission Resident Creating Document: NELSON ARIAS RESIDENT Jun 06, 2025 at 04:46 Date of Discharge: Jun 14, 2025 Admitting Diagnosis Altered mental status Labs/Diagnostic Data: Laboratory Results Test 06/14/25 05:24 06/13/25 06:00 06/12/25 13:15 06/12/25 08:15 White Blood Count 5.3 10^3/uL (4.4-10.8) Red Blood Count 3.83 10^6/uL (4.5-5.90) Hemoglobin 12.2 g/dL (13.5-17.5) Hematocrit 36.5 % (41.0-53.0) Mean Corpuscular Volume 95.2 fL (80.0-100.0) Mean Corpuscular Hemoglobin 31.8 pg (28.0-32.0) Mean Corpuscular Hemoglobin Concent 33.4 g/dL (32.0-36.0) Red Cell Distribution Width 16.6 % (11.8-14.3) Platelet Count 313 10^3/uL (140-450) Mean Platelet Volume 8.4 fL (6.9-10.8) Neutrophils (%) (Auto) 64.4 % (37.0-80.0) Lymphocytes (%) (Auto) 17.0 % (10.0-50.0) Monocytes (%) (Auto) 14.1 % (0.0-12.0) Eosinophils (%) (Auto) 3.3 % (0.0-7.0) Basophils (%) (Auto) 1.2 % (0.0-2.0) Neutrophils # (Auto) 3.4 10 ^3/uL (1.6-8.6) Lymphocytes # (Auto) 0.9 10 ^3/uL (0.4-5.4) Monocytes # (Auto) 0.8 10 ^3/uL (0-1.3) Eosinophils # (Auto) 0.2 10 ^3/uL (0-0.8) Basophils # (Auto) 0.1 10 ^3/uL (0-0.2) Nucleated Red Blood Cells 0.0 % Sodium Level 141 mmol/L (136-145) Potassium Level 3.4 mmol/L (3.5-5.1) Chloride Level 96 mmol/L (98-107) Carbon Dioxide Level 28 mmol/L (20-31) Anion Gap 17 (5-15) Blood Urea Nitrogen 19 mg/dL (9-23) Creatinine 5.76 mg/dL (0.700-1.30) Glomerular Filtration Rate Calc 10 mL/min (>90) BUN/Creatinine Ratio 3.3 (10.0-20.0) Serum Glucose 108 mg/dL (74-106) Calcium Level 11.7 mg/dL (8.7-10.4) Magnesium Level 2.8 mg/dL (1.6-2.6) Parathyroid Hormone (Intact) 253.2 pg/mL (18.4-80.1) Random Vancomycin Level 15.2 ug/mL (5-10) Blood Gas Specimen Type Arterial Blood Gas Sample Site Right radial Blood Gas Patient Temperature 37.0 Arterial Blood Date Drawn [id number] Arterial Blood pH 7.445 (7.350-7.450) Arterial Blood Partial Pressure CO2 48.5 mmHg (35.0-48.0) Arterial Blood Partial Pressure O2 73.1 mmHg (83.0-108.0) Arterial Blood HCO3 32.6 mmol/L (21.0-28.0) Arterial Blood Oxygen Saturation 93.2 % (94.0-98.0) Arterial Blood Base Excess 7.5 mmol/L (-2.0-3.0) Arterial Blood Oxyhemoglobin 92.7 % (94.0-98.0) Arterial Blood Carboxyhemoglobin 0.3 % (0.5-1.5) Arterial Blood Methemoglobin 0.2 % (0.0-1.5) Arterial Blood Deoxyhemoglobin 6.8 % (0.0-5.0) Cam Test Modified Blood Gas Total Hemoglobin 10.70 g/dL (13.5-17.5) Blood Gas Modality Vent - cpap Blood Gas Spontaneous Rate 16 FiO2 % 30.0 Blood Gas Spontaneous Tidal Volume 600 Blood Gas Pressure Support 8 Blood Gas PEEP or CPAP 5.0 Blood Gas Set Respiration Rate 16.0 Blood Gas Tidal Volume 500.0 Test 06/12/25 04:11 06/06/25 12:57 06/06/25 08:43 06/06/25 07:16 Total Bilirubin 0.5 mg/dL (0.2-1.0) Aspartate Amino Transferase (AST) 14 U/L (13-40) Alanine Aminotransferase (ALT) 11 U/L (7-40) Alkaline Phosphatase 76 U/L (46-116) Total Protein 6.9 g/dL (5.7-8.2) Albumin 4.0 g/dL (3.2-4.8) Hepatitis A IgM Antibody Negative Hepatitis B Surface Antigen Negative (Negative) Hepatitis B Core IgM Antibody Negative (Negative) Hepatitis C Antibody Negative (Negative) POC Glucose 121 mg/dl (70-106) D-Dimer, Quantitative 1.19 mg/L FEU (0.0-0.49) Test 06/06/25 04:51 06/06/25 03:40 06/06/25 01:05 06/06/25 00:45 B-Type Natriuretic Peptide 1419.97 pg/mL (0-100) Blood Gas Critical Value Read Back Yes Blood Gas Notified Time [id number] Urine Color Colorless (Yellow) Urine Clarity Turbid (Clear) Urine pH 8.5 (5.0-9.0) Urine Specific [place] 1.009 (1.001-1.035) Urine Protein 3+ (Negative) Urine Ketones Negative (Negative) Urine Blood 1+ /uL (Negative) Urine Nitrite Negative (Negative) Urine Bilirubin Negative (Negative) Urine Urobilinogen Normal mg/dL (Negative) Urine Leukocyte Esterase Negative /uL (Negative) Urine RBC 50 /hpf (0 - 3) Urine Microscopic WBC 26 /HPF (0-3) Urine Squamous Epithelial Cells None seen /hpf (<5) Urine Bacteria None seen /hpf (None Seen) Urine Mucus Few (None Seen) Urine Sperm Present /hpf (None Seen) Urine Glucose 3+ mg/dL (Normal) Urine Opiates Screen Neg (NEGATIVE) Urine Fentanyl Screen Neg (NEGATIVE) Urine Barbiturates Screen Neg (NEGATIVE) Urine Phencyclidine Screen Neg (NEGATIVE) Urine Amphetamines Screen Neg (NEGATIVE) Urine Benzodiazepines Screen Neg (NEGATIVE) Urine Cocaine Screen Neg (NEGATIVE) Urine Cannabinoids Screen Neg (NEGATIVE) Ammonia < 10 umol/L (11-32) Troponin I High Sensitivity 46 ng/L (</=54) Test 06/06/25 00:10 06/05/25 22:44 06/05/25 22:24 Blood Gas Liter Flow 4.00 Plasma/Serum Blood Alcohol < 3.0 mg/dL (<10) Lactic Acid Level 1.3 mmol/L (0.4-2.0) Other Laboratory Tests 06/14/25 05:24 Brief Hx & Hospital Course: The patient is a 69-year-old male with a history of CHF (EF 25%), ESRD on hemodialysis, CAD s/p CABG, hypertension, and dyslipidemia who presented with altered mental status following an episode of chest pain. In the ED, he became obtunded and hypoxic, requiring emergent intubation for airway protection. Initial workup revealed acute metabolic encephalopathy, pulmonary edema, and suspected multifocal pneumonia. He was started on broad-spectrum antibiotics (vancomycin and Zosyn) and underwent multiple sessions of hemodialysis for volume management. Sedation was gradually weaned, and tube feedings were initiated. Serial chest imaging showed persistent bibasilar airspace disease. The patient failed initial CPAP trials but was successfully extubated on 06/12/2025 and transitioned to cool mist aerosol. Blood pressure remained labile, requiring adjustment of antihypertensive regimen and brief vasopressor support during dialysis. He completed a 7-day course of antibiotics and resumed home cardiac medications. Patient progressed with physical therapy, PT recommendations were to place patient at [facility] if inadequate support system at home, on the day of discharge, detailed conversation was held with patient's daughter Ms. Gaytan, who noted patient lives with her and has appropriate support including his 2 granddaughters who also help. Patient was noted to be hemodynamically stable, Ms. Gaytan noted that she would drive from [place] and pick patient up, all questions were answered and concerns were addressed. Physical therapy was initiated, and after discussion with his daughter, discharge planning was arranged for home with family support. At discharge, the patient was hemodynamically stable, alert, tolerating oral intake, and scheduled to continue outpatient dialysis. Patient's right-sided CVC catheter was removed prior to discharge with patient placed in Trendelenburg position performing Valsalva, removed in 1 steady motion, tip of the catheter intact. Pressure held for 10 minutes and then pressure dressing applied. No bleeding, no distress, no shortness of breaths noted. time spent in discharge planning was 41 mins Consults/Reason for consult Nephrology: ESRD Condition at Discharge: Stable Final Diagnosis/Problems List # acute metabolic encephalopathy, POA Cardiovascular # Acute on chronic systolic heart failure with reduced ejection fraction 25%, POA # pulmonary edema due to above, POA # septic vs cardiogenic shock, POA # coronary artery disease s/p CABG, POA # essential hypertension Respiratory # Ventilator -intubated 06/05/2025 Extubated 06/12/2025 # Acute hypoxic hypercapnic respiratory failure # Pulmonary edema # ?CAP, gram + vs gram -ve, POA GI # Peptic ulcer prophylaxis # Latham catheter Nephrology # ESRD on HD T,T,S # hyperkalemia # Hyperphosphatemia # Secondary hyperparathyroidism # Metabolic acidosis Infectious disease # ?CAP, gram + vs gram -ve # sepsis due to above , POA Hem/onc # anemia, likely of chronic disease, MCV 94.8 # thrombocytopenia Discharge Disposition: Home Discharge Instruct/Medications Diet: Cardiac 2g Na,low cholest, Renal Activity: No Restrictions, As Tolerated Follow Up/Referral: Please follow up with PCP in 1-2 weeks Please follow up with Nephrology in 1-2 weeks Please follow up with Cardiology in 1-2 weeks Medications: Continued home medications including aspirin, Plavix, atorvastatin, gabapentin, nifedipine, carvedilol, allopurinol, hydralazine, Jardiance, RenaVite, sevelamer Scheduled Allopurinol (Allopurinol), 100 MG PO DAILY, (Reported) Aspirin (Aspirin Low Dose), 81 MG PO DAILY Atorvastatin Calcium (Atorvastatin Calcium), 1 TAB PO DAILY, (Reported) B-Complex W/ C & Folic Acid (Jeanine-Krystle Rx), 1 TAB PO DAILY, (Reported) Carvedilol (Coreg), 6.25 MG PO Q12HR Cholecalciferol (Vitamin D3), 1 CAP PO DAILY, (Reported) Cinacalcet HCl (Cinacalcet Hydrochloride), 1 TAB PO DAILY, (Reported) Clopidogrel Bisulfate (Clopidogrel), 1 TAB PO DAILY, (Reported) Cyanocobalamin (Gnp Vitamin B12), 500 MCG PO DAILY Ferric Citrate (Auryxia), 2 TAB PO TID, (Reported) Gabapentin (Gabapentin), 1 CAP PO DAILY, (Reported) Hydralazine Hcl (Hydralazine Hcl), 25 MG PO TID Isosorbide Mononitrate (Isosorbide Mononitrate Er), 1 TAB PO DAILY Nifedipine (Nifedipine Er), 90 MG PO DAILY Sevelamer Carbonate (Sevelamer Carbonate), 800 MG PO TID, (Reported) Scheduled PRN Acetaminophen (Acetaminophen), 500 MG PO Q4HPRN PRN Discontinued Medications Allopurinol (Allopurinol), 1 TAB PO DAILY, (Reported) Aspirin (Aspir-Low), 81 MG PO DAILY B-Complex W/ C & Folic Acid (Jeanine-Krystle), 60 MG OR DAILY, (Reported) Carvedilol (Carvedilol), 1 TAB PO BID Cefdinir (Cefdinir), 1 CAP PO BID Cholecalciferol (Vitamin D3), 5,000 UNIT OR DAILY, (Reported) Ciprofloxacin Hcl (Ciprofloxacin Hcl), 1 TAB PO BID Clindamycin Hcl (Clindamycin Hcl), 1 CAP PO TID Clopidogrel Bisulfate (Clopidogrel), 75 MG PO DAILY, (Reported) Doxycycline (Monohydrate) (Doxycycline), 100 MG PO BID Ferric Citrate (Auryxia), 210 MG PO BID, (Reported) Furosemide (Furosemide), 1 TAB PO DAILY, (Reported) Gabapentin (Gabapentin), 300 MG PO BID, (Reported) Hydrocodone-Acetaminophen (Hydrocodone Bitartrate/AC 5-325 mg), 1 TAB PO QID PRN Levofloxacin Hemihydrate (Levaquin 500 Mg), 1 TAB PO DAILY Losartan Potassium (Losartan Potassium), 1 TAB PO DAILY, (Reported) Ropinirole Hydrochloride (Ropinirole Hcl), 1 TAB PO DAILY, (Reported) Ropinirole Hydrochloride (Ropinirole Hcl), 2 MG PO DAILY, (Reported) Sevelamer Hydrochloride (Sevelamer Hydrochloride), 1 TAB PO TID, (Reported) Discharge Statement: "Patient was advised to return to the ER or call 911 if any headaches, dizziness, shortness of breath, chest pain, abdominal pain, bleeding, fevers, or worsening of medical condition. Patient was counseled about treatment plan, medications, possible side effects, patientverbalized understanding. All questions were answered to the best of my ability. This discharge took greater then 30 minutes in planning, reviewing documentation, counseling the patient, and discussing with other team members." ASSESSMENT ASSESSMENT Assessment # acute metabolic encephalopathy - Head CT : No acute intracranial abnormality. 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 Chronic sequelae of microangiopathy and atrophic cortical volume loss. Cardiovascular # Acute on chronic systolic heart failure with reduced ejection fraction 25% # pulmonary edema due to above # septic vs cardiogenic shock # coronary artery disease s/p CABG # essential hypertension - Echo from apr 2025: lvef 25%. restrictive LV filling pattern. severe chf . mild LVH aortic sclerosis. RV enlarged and dysfunction. biatrial enlargement. mild mitral regurgitation Respiratory # Ventilator -intubated 06/05/2025 Extubated 06/12/2025 # Acute hypoxic hypercapnic respiratory failure # Pulmonary edema # ?CAP, gram + vs gram -ve GI # Peptic ulcer prophylaxis # Latham catheter Nephrology # ESRD on HD T,T,S # hyperkalemia # Hyperphosphatemia # Secondary hyperparathyroidism # Metabolic acidosis Infectious disease # ?CAP, gram + vs gram -ve # sepsis due to above Hem/onc # anemia, likely of chronic disease, MCV 94.8 # thrombocytopenia Visit Coding STANDARD RES Billing Provider: RODNEY BATEMAN MD Date of Service if different f: Jun 14, 2025 Common Visit Codes: 91960-CTG/OBS DISCH DAY >30min NELSON ARIAS Jun 14, 2025 14:43 RODNEY BATEMAN MD Jun 18, 2025 11:23
== END 2025-06-14 17:20 | disposition home or self-care (01) | DRG 720 ==
LOC: EDBD 22:19 → ER 22:19 → EDSEX 22:19 → EDUNIT# 06-06 04:46 → OVERFLOW 06-06 04:46 → ICU WEST 06-06 07:45 → TELE-CENTR 06-13 14:36
PROVIDERS: ADMIT Internal Medicine; ATTEND Internal Medicine
PROC: 0BH17EZ Insertion of Endotracheal Airway into Trachea, Via Natural or Artificial Opening (ICD-10-PCS; 2025-06-05)
PROC: 05HN33Z Insertion of Infusion Device into Left Internal Jugular Vein, Percutaneous Approach (ICD-10-PCS; principal; 2025-06-06)
PROC: 5A1955Z Respiratory Ventilation, Greater than 96 Consecutive Hours (ICD-10-PCS; 2025-06-06)
PROC: B544ZZA Ultrasonography of Left Jugular Veins, Guidance (ICD-10-PCS; 2025-06-06)
PROC: 5A1D70Z Performance of Urinary Filtration, Intermittent, Less than 6 Hours Per Day (ICD-10-PCS; 2025-06-06)
PROC: 5A1D70Z Performance of Urinary Filtration, Intermittent, Less than 6 Hours Per Day (ICD-10-PCS; 2025-06-07)
PROC: 5A1D70Z Performance of Urinary Filtration, Intermittent, Less than 6 Hours Per Day (ICD-10-PCS; 2025-06-09)
PROC: 5A1D70Z Performance of Urinary Filtration, Intermittent, Less than 6 Hours Per Day (ICD-10-PCS; 2025-06-11)
PROC: 5A1D70Z Performance of Urinary Filtration, Intermittent, Less than 6 Hours Per Day (ICD-10-PCS; 2025-06-13)
DX: A41.50 Gram-negative sepsis, unspecified (principal); R57.0 Cardiogenic shock; J96.02 Acute respiratory failure with hypercapnia; R65.21 Severe sepsis with septic shock; I13.2 Hypertensive heart and chronic kidney disease with heart failure and with stage 5 chronic kidney disease, or end stage renal disease; G93.41 Metabolic encephalopathy; J15.69 Pneumonia due to other Gram-negative bacteria; J96.01 Acute respiratory failure with hypoxia; I50.23 Acute on chronic systolic (congestive) heart failure; N18.6 End stage renal disease; Z99.2 Dependence on renal dialysis; D69.6 Thrombocytopenia, unspecified; J15.9 Unspecified bacterial pneumonia; D63.1 Anemia in chronic kidney disease; E66.9 Obesity, unspecified; I34.0 Nonrheumatic mitral (valve) insufficiency; E83.39 Other disorders of phosphorus metabolism; N25.81 Secondary hyperparathyroidism of renal origin; E87.5 Hyperkalemia; I25.10 Atherosclerotic heart disease of native coronary artery without angina pectoris; I42.9 Cardiomyopathy, unspecified; E87.20 Acidosis, unspecified; E78.5 Hyperlipidemia, unspecified; Z95.1 Presence of aortocoronary bypass graft; Z88.8 Allergy status to other drugs, medicaments and biological substances; I25.2 Old myocardial infarction; Z83.3 Family history of diabetes mellitus; Z68.29 Body mass index [BMI] 29.0-29.9, adult
CPT/HCPCS: 31500; 36415; 36556; 36600; 70450; 71045; 80048; 80053; 80074; 80202; 80307; 80320; 81001; 82140; 82247; 82805; 82962; 83605; 83735; 83880; 83970; 84075; 84132; 84450; 84460; 84484; 85025; 85379; 87040; 87070; 87081; 87086; 87205; 90935; 93005; 94002; 94003; 94640; 96365; 96375; 97163; 99291; G0378; J1815; J2405; J2470; J2543; J2704